=== PATIENT | female | born 1980 | race Caucasian/White ===

== ENCOUNTER 2018-09-15 21:13 | Emergency (ER) | payer OTHER ==
[~2018-09-15] VITALS: Ht 167.6 cm; Wt 93.2 kg
[~2018-09-15 21:13] MED LIST: CHOL100062 PO; DIVA500T52 PO; DOCU250C91 PO; LURA20TA PO; TRAZ-186 PO
[2018-09-15] MEDS ORDERED: PALI234D IM (21:30)
[2018-09-15] MEDS ORDERED: OMEP20 PO (21:30)
[2018-09-15] MEDS ORDERED: DIVA-78 PO (21:30)
[2018-09-15] MEDS ORDERED: LEVO50 PO (21:30)
[2018-09-15] MEDS ORDERED: DOCU250C91 PO (21:30)
[2018-09-15] MEDS ORDERED: CYCL10 PO (21:30)
[2018-09-15] MEDS ORDERED: OXYB5 PO (21:30)
[2018-09-15] MEDS ORDERED: CLOZ100 PO (21:30)
[2018-09-15] MEDS ORDERED: TRAZ-220 PO (21:30)
[2018-09-15] MEDS ORDERED: SERT100T12 PO (21:30)
[2018-09-15 21:32] VITALS: BP 122/93
[2018-09-15 21:41] LABS: BASOPHILS % (AUTO) 1.2 % (0.0-2.0); EOSINOPHILS % (AUTO) 3.4 % (1.0-6.0); HEMOGLOBIN 12.2 g/dL (12.0-16.0); LYMPHOCYTES # (AUTO) 3.2 K/uL (1.0-4.8); LYMPHOCYTES % (AUTO) 35.4 % (22.0-44.0); MEAN CORPUSCULAR HEMOGLOBIN 30.4 pg (26.0-34.0); MEAN CORPUSCULAR HGB CONC 33.8 G/dL (31.0-37.0); MEAN CORPUSCULAR VOLUME 90 fL (80-100); MONOCYTES % (AUTO) 11.3 % (2.0-9.0); NEUTROPHILS # (AUTO) 4.4 K/uL (1.8-7.7); NEUTROPHILS % (AUTO) 48.7 % (40.0-70.0); PLATELET COUNT (AUTO) 163 K/uL (150-450); RED BLOOD CELL COUNT(AUTO) 4.01 MIL/uL (4.00-5.20); RED CELL DISTRIBUTION WIDTH 14.6 % (11.5-14.5)
[2018-09-15 21:51] LABS: ANION GAP 7 mmol/L (8-16); CALCIUM, TOTAL 8.5 mg/dL (8.8-10.5); CARBON DIOXIDE 26 mmol/L (22-29); CHLORIDE 106 mmol/L (98-107); CREATININE 1.07 mg/dL (0.60-1.30); GLOMERULAR FILTR. RATE CALC 58 mL/min (>60); GLUCOSE,RANDOM 135 mg/dL (70-110); POTASSIUM 3.9 mmol/L (3.5-5.1); SODIUM SERUM 139 mmol/L (136-145); UREA NITROGEN, BLOOD 17 mg/dL (7-18)
[2018-09-15] MEDS ORDERED: HALOPERIDOL LACTATE 5 MG/ML VIAL IM ONE (22:00)
[2018-09-15] MEDS ORDERED: LORazepam 2 MG/ML VIAL IM ONE (22:00)
[2018-09-15 22:03] LABS: ALANINE AMINOTRANSFERASE 15 U/L (12-78); ALKALINE PHOSPHATASE 49 U/L (46-116); ASPARTATE AMINOTRANSFERASE 10 U/L (15-37); BILIRUBIN,TOTAL 0.2 mg/dL (0.1-1.0); TOTAL PROTEIN, SERUM 6.6 g/dL (6.4-8.2)
[2018-09-15 22:24] LABS: AMPHET/METH SCREEN,URINE NEGATIVE (NEGATIVE); BARBITURATE SCREEN, URINE NEGATIVE (NEGATIVE); BENZODIAZEPINES SCREEN,URINE NEGATIVE (NEGATIVE); CANNABINOID SCREEN,URINE NEGATIVE (NEGATIVE); COCAINE SCREEN,URINE NEGATIVE (NEGATIVE); METHADONE SCREEN, URINE NEGATIVE (NEGATIVE); OPIATE SCREEN,URINE NEGATIVE (NEGATIVE); PHENCYCLIDINE SCREEN,URINE NEGATIVE (NEGATIVE)
[2018-09-15 22:31] LABS: APPEARANCE,URINE CLEAR (CLEAR); BILIRUBIN,URINE NEGATIVE (NEGATIVE); GLUCOSE, URINE (UA) NEGATIVE (NEGATIVE); KETONES,URINE NEGATIVE (NEGATIVE); LEUKOCYTE ESTERASE ,URINE SMALL (NEGATIVE); NITRATE,URINE NEGATIVE (NEGATIVE); OCCULT BLOOD,URINE NEGATIVE (NEGATIVE); PROTEIN,URINE NEGATIVE (NEGATIVE)
[2018-09-15 22:33] LABS: HCG,QUANTITATIVE < 1 mIU/mL (0-6); LIPASE 301 U/L (73-393)
[2018-09-15 22:48] LABS: BACTERIA,URINE None Seen /HPF (None Seen); RBC,URINE 0-2 /HPF (0-2); SQUAMOUS EPITHELIAL CELL,UR Few /LPF (None Seen)
== END 2018-09-15 23:59 | disposition home or self-care (01) ==
LOC: EMS 21:15
DX: R19.7 Diarrhea, unspecified (principal); F41.9 Anxiety disorder, unspecified; R44.0 Auditory hallucinations; R44.1 Visual hallucinations; I10 Essential (primary) hypertension; R10.12 Left upper quadrant pain; R10.32 Left lower quadrant pain; Z79.899 Other long term (current) drug therapy
CPT/HCPCS: 36415; 80053; 80307; 81001; 83690; 84702; 85025; 96372; 99284; G0480; J1630; J2060

== ENCOUNTER 2018-09-24 18:02 | Emergency (ER) | payer OTHER ==
[~2018-09-24] VITALS: Ht 167.6 cm; Wt 97.7 kg
[~2018-09-24 18:02] MED LIST changes: -CHOL100062 PO; +CLOZ100 PO; +CYCL10 PO; +DIVA-78 PO; -DIVA500T52 PO; +LEVO50 PO; -LURA20TA PO; +OMEP20 PO; +OXYB5 PO; +PALI234D IM; +SERT100T12 PO; -TRAZ-186 PO; +TRAZ-220 PO
[2018-09-24] MEDS ORDERED: MAGNESIUM CITRATE 300 ML ORAL SOLUTION PO ONE (19:45)
[2018-09-24 20:42] VITALS: BP 140/100
== END 2018-09-24 20:56 | disposition home or self-care (01) ==
LOC: EMS 18:03
DX: K59.00 Constipation, unspecified (principal); F41.9 Anxiety disorder, unspecified; F32.9 Major depressive disorder, single episode, unspecified; K21.9 Gastro-esophageal reflux disease without esophagitis; I10 Essential (primary) hypertension; F20.9 Schizophrenia, unspecified

== ENCOUNTER 2018-11-07 17:45 | Inpatient (IN) | payer MEDICAID, OTHER ==
[~2018-11-07] VITALS: Ht 165.1 cm; Wt 94.3 kg
[2018-11-07] MEDS ORDERED: HALOPERIDOL 5 MG TABLET PO ONE (19:30)
[2018-11-07] MEDS ORDERED: DiphenhydrAMINE HCL 25 MG CAPSULE PO ONE (19:30)
[2018-11-07] MEDS ORDERED: LORazepam 2 MG TABLET PO ONE (19:30)
[2018-11-07] MEDS ORDERED: ZOLPIDEM TARTRATE 10 MG TABLET PO PRN (20:00)
[2018-11-07 20:02] LABS: APPEARANCE,URINE CLEAR (CLEAR); BILIRUBIN,URINE NEGATIVE (NEGATIVE); GLUCOSE, URINE (UA) NEGATIVE (NEGATIVE); KETONES,URINE NEGATIVE (NEGATIVE); LEUKOCYTE ESTERASE ,URINE NEGATIVE (NEGATIVE); NITRATE,URINE NEGATIVE (NEGATIVE); OCCULT BLOOD,URINE NEGATIVE (NEGATIVE); PROTEIN,URINE NEGATIVE (NEGATIVE); UROBILINOGEN,URINE 0.2 mg/dL (<=1.0)
[2018-11-07 20:07] LABS: AMPHET/METH SCREEN,URINE NEGATIVE (NEGATIVE); BARBITURATE SCREEN, URINE NEGATIVE (NEGATIVE); BENZODIAZEPINES SCREEN,URINE NEGATIVE (NEGATIVE); CANNABINOID SCREEN,URINE NEGATIVE (NEGATIVE); COCAINE SCREEN,URINE NEGATIVE (NEGATIVE); METHADONE SCREEN, URINE NEGATIVE (NEGATIVE); OPIATE SCREEN,URINE NEGATIVE (NEGATIVE)
[2018-11-07 20:09] LABS: EOSINOPHILS % (AUTO) 2.7 % (1.0-6.0); HEMATOCRIT 36.4 % (36-46); HEMOGLOBIN 12.7 g/dL (12.0-16.0); LYMPHOCYTES # (AUTO) 3.8 K/uL (1.0-4.8); LYMPHOCYTES % (AUTO) 49.1 % (22.0-44.0); MEAN CORPUSCULAR HEMOGLOBIN 31.2 pg (26.0-34.0); MEAN CORPUSCULAR HGB CONC 34.8 G/dL (31.0-37.0); MEAN CORPUSCULAR VOLUME 90 fL (80-100); MONOCYTES # (AUTO) 0.8 K/uL (0.1-1.0); MONOCYTES % (AUTO) 10.6 % (2.0-9.0); NEUTROPHILS # (AUTO) 2.9 K/uL (1.8-7.7); NEUTROPHILS % (AUTO) 36.6 % (40.0-70.0); PLATELET COUNT (AUTO) 205 K/uL (150-450); RED BLOOD CELL COUNT(AUTO) 4.05 MIL/uL (4.00-5.20); RED CELL DISTRIBUTION WIDTH 15.2 % (11.5-14.5)
[2018-11-07 20:15] LABS: PHENCYCLIDINE SCREEN,URINE NEGATIVE (NEGATIVE)
[2018-11-07 20:23] LABS: ANION GAP 6 mmol/L (8-16); CALCIUM, TOTAL 9.3 mg/dL (8.8-10.5); CARBON DIOXIDE 27 mmol/L (22-29); CHLORIDE 106 mmol/L (98-107); GLOMERULAR FILTR. RATE CALC > 60 mL/min (>60); GLUCOSE,RANDOM 95 mg/dL (70-110); POTASSIUM 4.4 mmol/L (3.5-5.1); SODIUM SERUM 139 mmol/L (136-145); UREA NITROGEN, BLOOD 14 mg/dL (7-18)
[2018-11-07 20:39] LABS: ALANINE AMINOTRANSFERASE 15 U/L (12-78); ALBUMIN 3.2 g/dL (3.4-5.0); ALKALINE PHOSPHATASE 35 U/L (46-116); ASPARTATE AMINOTRANSFERASE 5 U/L (15-37); BILIRUBIN,TOTAL 0.2 mg/dL (0.1-1.0); CHOL/HDL RATIO 2.4 (3.9-5.7); CHOLESTEROL 129 mg/dL (131-200); FREE T4 (FREE THYROXINE) 0.83 ng/dL (0.76-1.46); HDL CHOLESTEROL 54 mg/dL (40-60); LDL CHOL (CALC.) 55 mg/dL (0-130); THYROID STIMULATING HORMONE 2.19 uIU/mL (0.36-3.74); TOTAL PROTEIN, SERUM 6.7 g/dL (6.4-8.2); TRIGLYCERIDES 99 mg/dL (15-150)
[2018-11-08 08:20] VITALS: BP 118/68
[2018-11-08] MEDS: LORazepam 1 MG TABLET PO PRN ×2 (08:46→14:56)
[2018-11-08] MEDS: HALOPERIDOL 5 MG TABLET PO PRN ×2 (10:11→14:56)
[2018-11-08] MEDS ORDERED: ONDANSETRON HCL 4 MG TABLET PO PRN (14:15)
[2018-11-08] MEDS ORDERED: ALBUTEROL SULFATE HFA 90 MCG/PUFF 8 GM INHALER IH PRN (14:15)
[2018-11-08] MEDS ORDERED: PETROLATUM,WHITE 71 GM JELLY TP PRN (14:15)
[2018-11-08] MEDS ORDERED: BENZOCAINE/MENTHOL LOZENGE MM PRN (14:15)
[2018-11-08] MEDS ORDERED: CloNIDine HCL 0.1 MG TABLET PO PRN (14:15)
[2018-11-08] MEDS ORDERED: ACETAMINOPHEN 325 MG TABLET PO PRN (14:15)
[2018-11-08] MEDS ORDERED: LOPERAMIDE HCL 2 MG CAPSULE PO PRN (14:15)
[2018-11-08] MEDS ORDERED: MAG HYDROX/AL HYDROX/SIMETH ES 30 ML SUSPENSION UDCUP PO PRN (14:15)
[2018-11-08] MEDS ORDERED: BACITRACIN 28.4 GM OINTMENT TP PRN (14:15)
[2018-11-08] MEDS ORDERED: GuaiFENesin/D-METHORPHAN [SUGAR-FREE] 200-20MG/10 ML SYRUP UDCUP PO PRN (15:00)
[2018-11-08] MEDS ORDERED: HydrOXYzine PAMOATE 50 MG CAPSULE PO PRN (15:00)
[2018-11-08 16:13] VITALS: BP 113/70
[2018-11-08 17:10] VITALS: BP 122/79
[2018-11-08] MEDS ORDERED: PERMETHRIN 1% 60 ML LOTION TP ONE (17:45)
[2018-11-08] MEDS: CloZAPine 100 MG TABLET PO SCH (20:32)
[2018-11-08] MEDS: DIVALPROEX SODIUM 500 MG ER TABLET PO SCH (20:32)
[2018-11-08] MEDS: THIAMINE HCL 100 MG TABLET PO SCH (20:33)
[2018-11-09 05:17] VITALS: BP 118/71
[2018-11-09] MEDS: DOCUSATE SODIUM 100 MG CAPSULE PO SCH (09:26)
[2018-11-09] MEDS: FOLIC ACID 1 MG TABLET PO SCH (09:26)
[2018-11-09] MEDS: THIAMINE HCL 100 MG TABLET PO SCH ×2 (09:26→17:17)
[2018-11-09] MEDS: OMEPRAZOLE 20 MG CAPSULE PO SCH (09:26)
[2018-11-09] MEDS: MULTIVITAMINS WITH MINERALS, THERAPEUTIC TABLET PO SCH (09:27)
[2018-11-09] MEDS ORDERED: IVERMECTIN 3 MG TABLET PO ONE (11:15)
[2018-11-09] MEDS ORDERED: PERMETHRIN 1% 60 ML LOTION TP ONE (11:15)
[2018-11-09] MEDS: MAGNESIUM HYDROXIDE SUSPENSION 30 ML UDCUP PO PRN (13:32)
[2018-11-09 17:07] VITALS: BP 121/85
[2018-11-09] MEDS: LORazepam 1 MG TABLET PO PRN (17:17)
[2018-11-09] MEDS: DIVALPROEX SODIUM 500 MG ER TABLET PO SCH (20:07)
[2018-11-09] MEDS: CloZAPine 100 MG TABLET PO SCH (20:07)
[2018-11-09] MEDS ORDERED: DIVALPROEX SODIUM 500 MG DR TABLET PO SCH (21:00)
[2018-11-09] MEDS: GABAPENTIN 300 MG CAPSULE PO SCH (21:27)
[2018-11-10 05:57] VITALS: BP 118/88
[2018-11-10] MEDS: LEVOTHYROXINE SODIUM 50 MCG TABLET PO SCH (06:08)
[2018-11-10 08:31] VITALS: BP 118/78
[2018-11-10] MEDS: FOLIC ACID 1 MG TABLET PO SCH (09:24)
[2018-11-10] MEDS: THIAMINE HCL 100 MG TABLET PO SCH ×2 (09:24→16:52)
[2018-11-10] MEDS: OXYBUTYNIN CHLORIDE 5 MG TABLET PO SCH ×2 (09:25→16:52)
[2018-11-10] MEDS: DOCUSATE SODIUM 100 MG CAPSULE PO SCH (09:30)
[2018-11-10] MEDS: OMEPRAZOLE 20 MG CAPSULE PO SCH (09:30)
[2018-11-10] MEDS: MULTIVITAMINS WITH MINERALS, THERAPEUTIC TABLET PO SCH (09:31)
[2018-11-10] MEDS: GABAPENTIN 300 MG CAPSULE PO SCH ×2 (09:31→12:35)
[2018-11-10 16:16] VITALS: BP 120/70
[2018-11-10] MEDS: GABAPENTIN 400 MG CAPSULE PO SCH ×2 (16:52→20:51)
[2018-11-10] MEDS: LORazepam 1 MG TABLET PO PRN (20:02)
[2018-11-10] MEDS: DIVALPROEX SODIUM 250 MG ER TABLET PO SCH (20:17)
[2018-11-10] MEDS ORDERED: CloZAPine 100 MG TABLET PO SCH (21:00)
[2018-11-11 02:09] VITALS: BP 121/77
[2018-11-11] MEDS: LEVOTHYROXINE SODIUM 50 MCG TABLET PO SCH (06:30)
[2018-11-11] MEDS: OXYBUTYNIN CHLORIDE 5 MG TABLET PO SCH ×2 (08:15→16:06)
[2018-11-11] MEDS: THIAMINE HCL 100 MG TABLET PO SCH ×2 (08:16→16:06)
[2018-11-11] MEDS: MULTIVITAMINS WITH MINERALS, THERAPEUTIC TABLET PO SCH (08:16)
[2018-11-11] MEDS: DOCUSATE SODIUM 100 MG CAPSULE PO SCH (08:19)
[2018-11-11] MEDS: OMEPRAZOLE 20 MG CAPSULE PO SCH (08:19)
[2018-11-11] MEDS: GABAPENTIN 400 MG CAPSULE PO SCH ×4 (08:19→20:02)
[2018-11-11] MEDS: FOLIC ACID 1 MG TABLET PO SCH (08:20)
[2018-11-11 09:04] VITALS: BP 115/88
[2018-11-11] MEDS: LORazepam 1 MG TABLET PO PRN (13:35)
[2018-11-11] MEDS: HALOPERIDOL 5 MG TABLET PO PRN (13:35)
[2018-11-11 16:04] VITALS: BP 121/78
[2018-11-11 16:05] VITALS: BP 119/87
[2018-11-11 16:24] VITALS: BP 124/86
[2018-11-11] MEDS: IBUPROFEN 600 MG TABLET PO PRN (16:24)
[2018-11-11] MEDS ORDERED: PERMETHRIN 1% 60 ML LOTION TP ONE (18:15)
[2018-11-11] MEDS ORDERED: IVERMECTIN 3 MG TABLET PO ONE (18:15)
[2018-11-11] MEDS: CloZAPine 100 MG TABLET PO SCH (20:01)
[2018-11-11] MEDS: DIVALPROEX SODIUM 250 MG ER TABLET PO SCH (20:02)
[2018-11-12 03:40] VITALS: BP 121/82
[2018-11-12] MEDS: LEVOTHYROXINE SODIUM 50 MCG TABLET PO SCH (06:33)
[2018-11-12 08:15] VITALS: BP 105/60
[2018-11-12] MEDS: OMEPRAZOLE 20 MG CAPSULE PO SCH (08:47)
[2018-11-12] MEDS: THIAMINE HCL 100 MG TABLET PO SCH ×2 (08:47→16:20)
[2018-11-12] MEDS: DOCUSATE SODIUM 100 MG CAPSULE PO SCH (08:47)
[2018-11-12] MEDS: OXYBUTYNIN CHLORIDE 5 MG TABLET PO SCH ×2 (08:47→16:20)
[2018-11-12] MEDS: MULTIVITAMINS WITH MINERALS, THERAPEUTIC TABLET PO SCH (08:47)
[2018-11-12] MEDS: GABAPENTIN 400 MG CAPSULE PO SCH ×4 (08:47→20:24)
[2018-11-12] MEDS: FOLIC ACID 1 MG TABLET PO SCH (08:48)
[2018-11-12] MEDS ORDERED: PERMETHRIN 1% 60 ML LOTION TP ONE (09:45)
[2018-11-12 16:34] VITALS: BP 111/60
[2018-11-12] MEDS: MAGNESIUM HYDROXIDE SUSPENSION 30 ML UDCUP PO PRN (17:08)
[2018-11-12 18:12] VITALS: BP 112/82
[2018-11-12] MEDS: LORazepam 1 MG TABLET PO PRN (18:12)
[2018-11-12] MEDS: CloZAPine 100 MG TABLET PO SCH (20:24)
[2018-11-12] MEDS: DIVALPROEX SODIUM 250 MG ER TABLET PO SCH (20:24)
[2018-11-13] VITALS (11 sets, daily range): BP systolic 102–142; BP diastolic 63–86
[2018-11-13] MEDS: LEVOTHYROXINE SODIUM 50 MCG TABLET PO SCH (07:00)
[2018-11-13] MEDS: DOCUSATE SODIUM 100 MG CAPSULE PO SCH (08:09)
[2018-11-13] MEDS: FOLIC ACID 1 MG TABLET PO SCH (08:09)
[2018-11-13] MEDS: OXYBUTYNIN CHLORIDE 5 MG TABLET PO SCH ×2 (08:09→16:05)
[2018-11-13] MEDS: THIAMINE HCL 100 MG TABLET PO SCH ×2 (08:09→16:05)
[2018-11-13] MEDS: MULTIVITAMINS WITH MINERALS, THERAPEUTIC TABLET PO SCH (08:09)
[2018-11-13] MEDS: OMEPRAZOLE 20 MG CAPSULE PO SCH (08:09)
[2018-11-13] MEDS: GABAPENTIN 400 MG CAPSULE PO SCH ×4 (08:09→20:04)
[2018-11-13] MEDS: IBUPROFEN 600 MG TABLET PO PRN (11:06)
[2018-11-13] MEDS ORDERED: PHENYLEPHRINE/SHK LV/MIN OIL/PET 57 GM OINTMENT TP PRN (13:30)
[2018-11-13] MEDS: PHENYLEPHRINE/SHK LV/MIN OIL/PET 57 GM OINTMENT TP SCH (16:07)
[2018-11-13] MEDS: DIVALPROEX SODIUM 250 MG ER TABLET PO SCH (20:03)
[2018-11-13] MEDS: CloZAPine 100 MG TABLET PO SCH (20:04)
[2018-11-14 00:10] VITALS: BP 120/81
[2018-11-14 00:36] VITALS: BP 110/68
[2018-11-14] MEDS: LEVOTHYROXINE SODIUM 50 MCG TABLET PO SCH (06:35)
[2018-11-14 08:08] VITALS: BP 120/65
[2018-11-14] MEDS: FOLIC ACID 1 MG TABLET PO SCH (09:22)
[2018-11-14] MEDS: DOCUSATE SODIUM 100 MG CAPSULE PO SCH (09:22)
[2018-11-14] MEDS: OXYBUTYNIN CHLORIDE 5 MG TABLET PO SCH ×2 (09:22→17:00)
[2018-11-14] MEDS: THIAMINE HCL 100 MG TABLET PO SCH ×2 (09:22→17:00)
[2018-11-14] MEDS: GABAPENTIN 400 MG CAPSULE PO SCH ×4 (09:22→20:31)
[2018-11-14] MEDS: OMEPRAZOLE 20 MG CAPSULE PO SCH (09:22)
[2018-11-14] MEDS: MULTIVITAMINS WITH MINERALS, THERAPEUTIC TABLET PO SCH (09:22)
[2018-11-14] MEDS: PHENYLEPHRINE/SHK LV/MIN OIL/PET 57 GM OINTMENT TP SCH ×2 (11:03→17:02)
[2018-11-14] MEDS ORDERED: DIVA250T45 PO (15:31)
[2018-11-14] MEDS ORDERED: CLOZ100 PO (15:31)
[2018-11-14] MEDS ORDERED: GABA-533 PO (15:31)
[2018-11-14 16:31] VITALS: BP 112/75
[2018-11-14] MEDS: DIVALPROEX SODIUM 250 MG ER TABLET PO SCH (20:31)
[2018-11-14] MEDS ORDERED: CloZAPine 100 MG TABLET PO SCH (21:00)
[2018-11-15 01:58] VITALS: BP 110/68
[2018-11-15] MEDS: LEVOTHYROXINE SODIUM 50 MCG TABLET PO SCH (06:56)
[2018-11-15] MEDS ORDERED: GABA-533 PO (07:48)
[2018-11-15] MEDS ORDERED: FOLI1 PO (07:48)
[2018-11-15 08:14] LABS: BASOPHILS % (AUTO) 0.6 % (0.0-2.0); EOSINOPHILS % (AUTO) 2.8 % (1.0-6.0); HEMATOCRIT 39.9 % (36-46); HEMOGLOBIN 13.2 g/dL (12.0-16.0); LYMPHOCYTES % (AUTO) 51.3 % (22.0-44.0); MEAN CORPUSCULAR HEMOGLOBIN 30.1 pg (26.0-34.0); MEAN CORPUSCULAR HGB CONC 33.2 G/dL (31.0-37.0); MEAN CORPUSCULAR VOLUME 91 fL (80-100); MONOCYTES # (AUTO) 1.4 K/uL (0.1-1.0); MONOCYTES % (AUTO) 11.9 % (2.0-9.0); NEUTROPHILS # (AUTO) 3.9 K/uL (1.8-7.7); NEUTROPHILS % (AUTO) 33.4 % (40.0-70.0); PLATELET COUNT (AUTO) 225 K/uL (150-450); RED BLOOD CELL COUNT(AUTO) 4.39 MIL/uL (4.00-5.20); RED CELL DISTRIBUTION WIDTH 14.9 % (11.5-14.5)
[2018-11-15] MEDS: MULTIVITAMINS WITH MINERALS, THERAPEUTIC TABLET PO SCH (09:22)
[2018-11-15] MEDS: THIAMINE HCL 100 MG TABLET PO SCH (09:22)
[2018-11-15] MEDS: OXYBUTYNIN CHLORIDE 5 MG TABLET PO SCH (09:22)
[2018-11-15] MEDS: GABAPENTIN 400 MG CAPSULE PO SCH ×2 (09:22→12:03)
[2018-11-15] MEDS: OMEPRAZOLE 20 MG CAPSULE PO SCH (09:22)
[2018-11-15] MEDS: FOLIC ACID 1 MG TABLET PO SCH (09:22)
[2018-11-15] MEDS: DOCUSATE SODIUM 100 MG CAPSULE PO SCH (09:22)
[2018-11-15] MEDS: PHENYLEPHRINE/SHK LV/MIN OIL/PET 57 GM OINTMENT TP SCH (09:41)
== END 2018-11-15 13:15 | disposition home or self-care (01) | DRG 750 ==
LOC: EMS 17:46 → AHU 11-08 07:17 → B3A 11-08 17:01 → B2S 11-10 20:54
PROVIDERS: ADMIT Psychiatry & Neurology Psychiatry; ATTEND Psychiatry & Neurology Psychiatry
DX: F25.0 Schizoaffective disorder, bipolar type (principal); G40.909 Epilepsy, unspecified, not intractable, without status epilepticus; E03.9 Hypothyroidism, unspecified; F41.0 Panic disorder [episodic paroxysmal anxiety]; F41.1 Generalized anxiety disorder; I10 Essential (primary) hypertension; G47.00 Insomnia, unspecified; K21.9 Gastro-esophageal reflux disease without esophagitis; K59.00 Constipation, unspecified; K64.9 Unspecified hemorrhoids
CPT/HCPCS: 80159; 83036; 84439; 84443; G0480

== ENCOUNTER 2020-09-10 12:42 | Inpatient (IN) | payer MEDICAID, OTHER ==
[~2020-09-10] VITALS: Ht 167.6 cm; Wt 91.4 kg
[~2020-09-10 12:42] MED LIST changes: -CLOZ100 PO; +CLOZ100T32 PO; -CYCL10 PO; +DIVA-112 PO; -DIVA-78 PO; +DIVA-85 PO; -DOCU250C91 PO; +FOLI-130 PO; +GABA-1201 PO; +GABA-533 PO; -OMEP20 PO; -PALI234D IM; -SERT100T12 PO; -TRAZ-220 PO
[2020-09-10 13:47] LABS: BASOPHILS % (AUTO) 0.3 % (0.0-2.0); HEMATOCRIT 32.4 % (36-46); HEMOGLOBIN 10.6 g/dL (12.0-16.0); LYMPHOCYTES % (AUTO) 38.5 % (22.0-44.0); MEAN CORPUSCULAR HEMOGLOBIN 29.1 pg (26.0-34.0); MEAN CORPUSCULAR HGB CONC 32.8 G/dL (31.0-37.0); MEAN CORPUSCULAR VOLUME 89 fL (80-100); MONOCYTES # (AUTO) 0.6 K/uL (0.1-1.0); MONOCYTES % (AUTO) 8.2 % (2.0-9.0); PLATELET COUNT (AUTO) 164 K/uL (150-450); RED BLOOD CELL COUNT(AUTO) 3.64 MIL/uL (4.00-5.20); RED CELL DISTRIBUTION WIDTH 14.3 % (11.5-14.5)
[2020-09-10 14:00] LABS: ANION GAP 5 mmol/L (8-16); CARBON DIOXIDE 29 mmol/L (22-29); CHLORIDE 107 mmol/L (98-107); GLOMERULAR FILTR. RATE CALC 56 mL/min (>60); GLUCOSE,RANDOM 77 mg/dL (70-110); POTASSIUM 4.2 mmol/L (3.5-5.1); SODIUM SERUM 141 mmol/L (136-145); UREA NITROGEN, BLOOD 12 mg/dL (7-18)
[2020-09-10 14:15] LABS: ALANINE AMINOTRANSFERASE 11 U/L (12-78); ALKALINE PHOSPHATASE 41 U/L (46-116); ASPARTATE AMINOTRANSFERASE 7 U/L (15-37); BILIRUBIN,TOTAL 0.3 mg/dL (0.1-1.0); TOTAL PROTEIN, SERUM 6.9 g/dL (6.4-8.2); VALPROIC ACID 107 mcg/mL (50-100)
[2020-09-10 15:25] LABS: ACETAMINOPHEN < 2 mcg/mL (10-30)
[2020-09-10 16:11] LABS: COVID AG,FIA SOURCE NASOPHARYNGEAL
[2020-09-10] MEDS ORDERED: ZOLPIDEM TARTRATE 10 MG TABLET PO PRN (16:15)
[2020-09-10] MEDS ORDERED: GuaiFENesin/D-METHORPHAN [SUGAR-FREE] 200-20MG/10 ML SYRUP UDCUP PO PRN (16:15)
[2020-09-10] MEDS ORDERED: TUBERCULIN, PURIFIED PROTEIN DERIVATIVE 5 TU/0.1 ML SYRINGE ID ONE ×2 (16:15→20:15)
[2020-09-10 16:56] LABS: AMPHET/METH SCREEN,URINE NEGATIVE (NEGATIVE); BARBITURATE SCREEN, URINE NEGATIVE (NEGATIVE); BENZODIAZEPINES SCREEN,URINE NEGATIVE (NEGATIVE); CANNABINOID SCREEN,URINE NEGATIVE (NEGATIVE); COCAINE SCREEN,URINE NEGATIVE (NEGATIVE); METHADONE SCREEN, URINE NEGATIVE (NEGATIVE); OPIATE SCREEN,URINE NEGATIVE (NEGATIVE)
[2020-09-10 17:19] LABS: PHENCYCLIDINE SCREEN,URINE NEGATIVE (NEGATIVE)
[2020-09-10] MEDS ORDERED: MAGNESIUM HYDROXIDE SUSPENSION 30 ML UDCUP PO PRN (20:15)
[2020-09-10] MEDS ORDERED: MAG HYDROX/AL HYDROX/SIMETH ES 30 ML SUSPENSION UDCUP PO PRN (20:15)
[2020-09-10] MEDS ORDERED: PROMETHAZINE HCL 25 MG TABLET PO PRN (20:15)
[2020-09-10 20:35] VITALS: BP 97/67
[2020-09-10] MEDS ORDERED: DIVALPROEX SODIUM 500 MG ER TABLET PO SCH ×2 (21:00)
[2020-09-10] MEDS: GABAPENTIN 400 MG CAPSULE PO SCH (22:45)
[2020-09-10] MEDS: CloZAPine 100 MG TABLET PO SCH (22:45)
[2020-09-10] MEDS: THIAMINE 100 MG TABLET PO SCH (22:45)
[2020-09-11 07:53] LABS: CHOL/HDL RATIO 3.6 (3.9-5.7)
[2020-09-11 08:00] VITALS: BP 101/59
[2020-09-11 08:12] VITALS: BP 101/59
[2020-09-11 08:16] LABS: FREE T4 (FREE THYROXINE) 0.9 ng/dL (0.76-1.46); THYROID STIMULATING HORMONE 2.56 uIU/mL (0.36-3.74)
[2020-09-11] MEDS: THIAMINE 100 MG TABLET PO SCH ×2 (08:20→16:11)
[2020-09-11] MEDS: LOPERAMIDE HCL 2 MG CAPSULE PO PRN (08:20)
[2020-09-11] MEDS: MULTIVITAMINS WITH MINERALS, THERAPEUTIC TABLET PO SCH (08:20)
[2020-09-11] MEDS: GABAPENTIN 400 MG CAPSULE PO SCH ×4 (08:20→20:42)
[2020-09-11] MEDS: OMEGA-3/DHA/EPA/FISH OIL 1,000 MG CAPSULE PO SCH (08:20)
[2020-09-11] MEDS: LORazepam 2 MG TABLET PO PRN (08:20)
[2020-09-11] MEDS: OLANZapine 5 MG RAPDIS TABLET PO PRN (08:20)
[2020-09-11] MEDS: HydrOXYzine PAMOATE 50 MG CAPSULE PO PRN ×2 (08:20→17:15)
[2020-09-11] MEDS ORDERED: FOLIC ACID 1 MG TABLET PO SCH (09:00)
[2020-09-11 09:06] LABS: HEMOGLOBIN A1C 5.1 % (3.8-5.6)
[2020-09-11] MEDS ORDERED: HYDROCORTISONE 2.5% 30 GM CREAM TP PRN (12:00)
[2020-09-11 16:00] VITALS: BP 97/65
[2020-09-11] MEDS: OXYBUTYNIN CHLORIDE 5 MG TABLET PO SCH (16:11)
[2020-09-11] MEDS: CloZAPine 100 MG TABLET PO SCH (20:42)
[2020-09-12] MEDS: LEVOTHYROXINE SODIUM 50 MCG TABLET PO SCH (06:11)
[2020-09-12 08:00] VITALS: BP 104/72
[2020-09-12] MEDS: DOCUSATE SODIUM 100 MG CAPSULE PO SCH (08:30)
[2020-09-12] MEDS: OMEGA-3/DHA/EPA/FISH OIL 1,000 MG CAPSULE PO SCH (08:30)
[2020-09-12] MEDS: DIVALPROEX SODIUM 500 MG ER TABLET PO SCH ×3 (08:30→16:19)
[2020-09-12] MEDS: MULTIVITAMINS WITH MINERALS, THERAPEUTIC TABLET PO SCH (08:30)
[2020-09-12] MEDS: THIAMINE 100 MG TABLET PO SCH ×2 (08:30→16:19)
[2020-09-12] MEDS: GABAPENTIN 400 MG CAPSULE PO SCH ×4 (08:30→20:45)
[2020-09-12] MEDS: FOLIC ACID 1 MG TABLET PO SCH (08:30)
[2020-09-12] MEDS: LOPERAMIDE HCL 2 MG CAPSULE PO PRN (08:40)
[2020-09-12] MEDS: OXYBUTYNIN CHLORIDE 5 MG TABLET PO SCH ×2 (09:19→16:19)
[2020-09-12 16:05] VITALS: BP 112/78
[2020-09-12] MEDS: CloZAPine 100 MG TABLET PO SCH (20:45)
[2020-09-12] MEDS: LORazepam 2 MG TABLET PO PRN (22:05)
[2020-09-12] MEDS: OLANZapine 5 MG RAPDIS TABLET PO PRN (22:06)
[2020-09-13] MEDS: LEVOTHYROXINE SODIUM 50 MCG TABLET PO SCH (07:02)
[2020-09-13 08:00] VITALS: BP 128/85
[2020-09-13] MEDS: DOCUSATE SODIUM 100 MG CAPSULE PO SCH (09:13)
[2020-09-13] MEDS: MULTIVITAMINS WITH MINERALS, THERAPEUTIC TABLET PO SCH (09:13)
[2020-09-13] MEDS: GABAPENTIN 400 MG CAPSULE PO SCH ×4 (09:13→20:47)
[2020-09-13] MEDS: OMEGA-3/DHA/EPA/FISH OIL 1,000 MG CAPSULE PO SCH (09:13)
[2020-09-13] MEDS: DIVALPROEX SODIUM 500 MG ER TABLET PO SCH ×3 (09:14→16:52)
[2020-09-13] MEDS: OXYBUTYNIN CHLORIDE 5 MG TABLET PO SCH ×2 (09:14→16:53)
[2020-09-13] MEDS: FOLIC ACID 1 MG TABLET PO SCH (09:14)
[2020-09-13] MEDS: THIAMINE 100 MG TABLET PO SCH ×2 (09:14→16:53)
[2020-09-13 16:05] VITALS: BP 132/75
[2020-09-13 18:38] VITALS: BP 122/72
[2020-09-13] MEDS: ACETAMINOPHEN 325 MG TABLET PO PRN (18:42)
[2020-09-13] MEDS: CloZAPine 100 MG TABLET PO SCH (20:47)
[2020-09-14] MEDS: LEVOTHYROXINE SODIUM 50 MCG TABLET PO SCH (06:41)
[2020-09-14 08:00] VITALS: BP 114/76
[2020-09-14] MEDS: DOCUSATE SODIUM 100 MG CAPSULE PO SCH (09:00)
[2020-09-14] MEDS: FOLIC ACID 1 MG TABLET PO SCH (10:55)
[2020-09-14] MEDS: OXYBUTYNIN CHLORIDE 5 MG TABLET PO SCH ×2 (10:55→15:56)
[2020-09-14] MEDS: DIVALPROEX SODIUM 500 MG ER TABLET PO SCH ×3 (10:55→15:56)
[2020-09-14] MEDS: THIAMINE 100 MG TABLET PO SCH ×2 (10:55→15:56)
[2020-09-14] MEDS: GABAPENTIN 400 MG CAPSULE PO SCH ×4 (10:55→20:21)
[2020-09-14] MEDS: OMEGA-3/DHA/EPA/FISH OIL 1,000 MG CAPSULE PO SCH (10:55)
[2020-09-14] MEDS: MULTIVITAMINS WITH MINERALS, THERAPEUTIC TABLET PO SCH (10:55)
[2020-09-14] MEDS: LOPERAMIDE HCL 2 MG CAPSULE PO PRN (10:56)
[2020-09-14] MEDS: ACETAMINOPHEN 325 MG TABLET PO PRN (13:04)
[2020-09-14 16:00] VITALS: BP 134/93
[2020-09-14] MEDS: CloZAPine 100 MG TABLET PO SCH (20:22)
[2020-09-15] MEDS: LEVOTHYROXINE SODIUM 50 MCG TABLET PO SCH (06:17)
[2020-09-15] MEDS: MULTIVITAMINS WITH MINERALS, THERAPEUTIC TABLET PO SCH (08:11)
[2020-09-15] MEDS: DOCUSATE SODIUM 100 MG CAPSULE PO SCH (08:11)
[2020-09-15] MEDS: OMEGA-3/DHA/EPA/FISH OIL 1,000 MG CAPSULE PO SCH (08:11)
[2020-09-15] MEDS: THIAMINE 100 MG TABLET PO SCH ×2 (08:12→16:16)
[2020-09-15] MEDS: GABAPENTIN 400 MG CAPSULE PO SCH ×4 (08:12→20:46)
[2020-09-15] MEDS: FOLIC ACID 1 MG TABLET PO SCH (08:12)
[2020-09-15] MEDS: DIVALPROEX SODIUM 500 MG ER TABLET PO SCH ×3 (08:12→16:16)
[2020-09-15] MEDS: OXYBUTYNIN CHLORIDE 5 MG TABLET PO SCH ×2 (08:12→16:16)
[2020-09-15 09:39] VITALS: BP 122/86
[2020-09-15 12:03] LABS: COVID AG,FIA SOURCE NASOPHARYNGEAL
[2020-09-15 16:12] VITALS: BP 103/85
[2020-09-15] MEDS: CloZAPine 100 MG TABLET PO SCH (20:46)
[2020-09-15] MEDS: LORazepam 2 MG TABLET PO PRN (22:03)
[2020-09-16] MEDS: LEVOTHYROXINE SODIUM 50 MCG TABLET PO SCH (06:15)
[2020-09-16 08:00] VITALS: BP 113/77
[2020-09-16] MEDS: GABAPENTIN 400 MG CAPSULE PO SCH ×4 (08:47→20:24)
[2020-09-16] MEDS: OXYBUTYNIN CHLORIDE 5 MG TABLET PO SCH ×2 (08:48→16:16)
[2020-09-16] MEDS: FOLIC ACID 1 MG TABLET PO SCH (08:48)
[2020-09-16] MEDS: MULTIVITAMINS WITH MINERALS, THERAPEUTIC TABLET PO SCH (08:48)
[2020-09-16] MEDS: DIVALPROEX SODIUM 500 MG ER TABLET PO SCH ×3 (08:48→16:16)
[2020-09-16] MEDS: OMEGA-3/DHA/EPA/FISH OIL 1,000 MG CAPSULE PO SCH (08:49)
[2020-09-16] MEDS: THIAMINE 100 MG TABLET PO SCH ×2 (08:49→16:16)
[2020-09-16] MEDS: LOPERAMIDE HCL 2 MG CAPSULE PO PRN ×2 (08:59→12:37)
[2020-09-16] MEDS: DOCUSATE SODIUM 100 MG CAPSULE PO SCH (09:00)
[2020-09-16 11:06] LABS: COVID AG,FIA SOURCE NASOPHARYNGEAL
[2020-09-16 16:08] VITALS: BP 118/72
[2020-09-16] MEDS ORDERED: GABA-1201 PO (18:40)
[2020-09-16] MEDS ORDERED: OMEG-135 PO (18:40)
[2020-09-16] MEDS ORDERED: CLOZ100T31 PO (18:40)
[2020-09-16] MEDS: CloZAPine 100 MG TABLET PO SCH (20:24)
[2020-09-17] MEDS: LEVOTHYROXINE SODIUM 50 MCG TABLET PO SCH (06:56)
[2020-09-17 08:25] VITALS: BP 113/79
[2020-09-17] MEDS: DIVALPROEX SODIUM 500 MG ER TABLET PO SCH ×2 (08:27→12:27)
[2020-09-17] MEDS: THIAMINE 100 MG TABLET PO SCH (08:27)
[2020-09-17] MEDS: ACETAMINOPHEN 325 MG TABLET PO PRN (08:27)
[2020-09-17] MEDS: FOLIC ACID 1 MG TABLET PO SCH (08:27)
[2020-09-17] MEDS: MULTIVITAMINS WITH MINERALS, THERAPEUTIC TABLET PO SCH (08:27)
[2020-09-17] MEDS: OXYBUTYNIN CHLORIDE 5 MG TABLET PO SCH (08:27)
[2020-09-17] MEDS: OMEGA-3/DHA/EPA/FISH OIL 1,000 MG CAPSULE PO SCH (08:27)
[2020-09-17] MEDS: GABAPENTIN 400 MG CAPSULE PO SCH ×2 (08:27→12:27)
[2020-09-17 08:40] VITALS: BP 113/79
[2020-09-17 08:58] LABS: BASOPHILS % (AUTO) 0.3 % (0.0-2.0); EOSINOPHILS % (AUTO) 2.1 % (1.0-6.0); HEMATOCRIT 35.6 % (36-46); HEMOGLOBIN 11.6 g/dL (12.0-16.0); LYMPHOCYTES # (AUTO) 3.1 K/uL (1.0-4.8); LYMPHOCYTES % (AUTO) 36.1 % (22.0-44.0); MEAN CORPUSCULAR HEMOGLOBIN 28.9 pg (26.0-34.0); MEAN CORPUSCULAR HGB CONC 32.5 G/dL (31.0-37.0); MEAN CORPUSCULAR VOLUME 89 fL (80-100); MONOCYTES # (AUTO) 1.4 K/uL (0.1-1.0); MONOCYTES % (AUTO) 16.3 % (2.0-9.0); NEUTROPHILS # (AUTO) 3.9 K/uL (1.8-7.7); NEUTROPHILS % (AUTO) 45.2 % (40.0-70.0); PLATELET COUNT (AUTO) 210 K/uL (150-450); RED CELL DISTRIBUTION WIDTH 14.6 % (11.5-14.5)
[2020-09-17] MEDS: DOCUSATE SODIUM 100 MG CAPSULE PO SCH (09:00)
[2020-09-17] MEDS ORDERED: DOCU-275 PO (11:40)
== END 2020-09-17 13:45 | disposition home or self-care (01) | DRG 750 ==
LOC: EMS 12:42 → 3EI 16:10 → 3EX 09-15 21:33
PROVIDERS: ADMIT Psychiatry & Neurology Psychiatry; ATTEND Psychiatry & Neurology Psychiatry
DX: F25.0 Schizoaffective disorder, bipolar type (principal); K21.9 Gastro-esophageal reflux disease without esophagitis; I10 Essential (primary) hypertension; K64.9 Unspecified hemorrhoids; E03.9 Hypothyroidism, unspecified; K59.00 Constipation, unspecified; R32 Unspecified urinary incontinence; D64.9 Anemia, unspecified; R45.851 Suicidal ideations; G40.409 Other generalized epilepsy and epileptic syndromes, not intractable, without status epilepticus; Z20.828 Contact with and (suspected) exposure to other viral communicable diseases; Z79.899 Other long term (current) drug therapy
CPT/HCPCS: 80159; 83036; 84439; 84443; 86592; 87426; G0378; G0480; G0481

== ENCOUNTER 2020-11-19 00:59 | Inpatient (IN) | payer MEDICAID ==
[~2020-11-19] VITALS: Ht 167.6 cm; Wt 93.8 kg
[~2020-11-19 00:59] MED LIST changes: +CLOZ100T31 PO; -CLOZ100T32 PO; -DIVA-112 PO; -DIVA-85 PO; +DOCU-275 PO; -FOLI-130 PO; -GABA-533 PO; +OMEG-135 PO
[2020-11-19] MEDS ORDERED: ZOLPIDEM TARTRATE 10 MG TABLET PO PRN (01:45)
[2020-11-19 02:45] VITALS: BP 132/83
[2020-11-19] MEDS ORDERED: INFLUENZA VIRUS VACCINE QVS 2020-21 (6MO+)/PF 60 MCG/0.5 ML SYRINGE IM ONE (04:00)
[2020-11-19 08:09] VITALS: BP 115/60
[2020-11-19] MEDS: GABAPENTIN 400 MG CAPSULE PO SCH ×4 (08:53→20:29)
[2020-11-19] MEDS: DIVALPROEX SODIUM 250 MG ER TABLET PO SCH ×2 (08:53→14:17)
[2020-11-19] MEDS ORDERED: BENZTROPINE MESYLATE 2 MG TABLET PO SCH (09:00)
[2020-11-19] MEDS: SERTRALINE HCL 100 MG TABLET PO SCH (09:51)
[2020-11-19] MEDS ORDERED: PERMETHRIN 1% 60 ML LOTION TP ONE (10:45)
[2020-11-19] MEDS ORDERED: LOPERAMIDE HCL 2 MG CAPSULE PO ONE (11:45)
[2020-11-19] MEDS ORDERED: LOPERAMIDE HCL 2 MG CAPSULE PO PRN ×2 (11:45→15:30)
[2020-11-19] MEDS ORDERED: MAG HYDROX/AL HYDROX/SIMETH ES 30 ML SUSPENSION UDCUP PO PRN (15:30)
[2020-11-19] MEDS ORDERED: HydrOXYzine PAMOATE 50 MG CAPSULE PO PRN (15:30)
[2020-11-19] MEDS ORDERED: GuaiFENesin/D-METHORPHAN [SUGAR-FREE] 200-20MG/10 ML SYRUP UDCUP PO PRN (15:30)
[2020-11-19] MEDS ORDERED: PROMETHAZINE HCL 25 MG TABLET PO PRN (15:30)
[2020-11-19] MEDS ORDERED: ACETAMINOPHEN 325 MG TABLET PO PRN (15:30)
[2020-11-19] MEDS ORDERED: MAGNESIUM HYDROXIDE SUSPENSION 30 ML UDCUP PO PRN (15:30)
[2020-11-19 16:34] VITALS: BP 110/90
[2020-11-19] MEDS: THIAMINE 100 MG TABLET PO SCH (16:36)
[2020-11-19] MEDS: LORazepam 1 MG TABLET PO PRN (17:39)
[2020-11-19] MEDS: MELATONIN 5 MG TABLET PO SCH (20:28)
[2020-11-19] MEDS: TraZODone HCL 100 MG TABLET PO SCH (20:29)
[2020-11-19] MEDS ORDERED: DIVALPROEX SODIUM 250 MG ER TABLET PO SCH (21:00)
[2020-11-19] MEDS ORDERED: CloZAPine 100 MG TABLET PO ONE (21:00)
[2020-11-20 00:13] VITALS: BP 105/86
[2020-11-20 08:16] VITALS: BP 122/74
[2020-11-20] MEDS: MULTIVITAMINS WITH MINERALS, THERAPEUTIC TABLET PO SCH (08:29)
[2020-11-20] MEDS: GABAPENTIN 400 MG CAPSULE PO SCH ×4 (08:29→21:01)
[2020-11-20] MEDS: NALTREXONE HCL 50 MG TABLET PO SCH (08:30)
[2020-11-20] MEDS: OMEGA-3/DHA/EPA/FISH OIL 1,000 MG CAPSULE PO SCH (08:30)
[2020-11-20] MEDS: THIAMINE 100 MG TABLET PO SCH ×2 (08:30→16:24)
[2020-11-20] MEDS: FOLIC ACID 1 MG TABLET PO SCH (08:30)
[2020-11-20 08:31] LABS: BASOPHILS % (AUTO) 0.5 % (0.0-2.0); EOSINOPHILS % (AUTO) 4.7 % (1.0-6.0); HEMATOCRIT 37.1 % (36-46); HEMOGLOBIN 12.1 g/dL (12.0-16.0); LYMPHOCYTES # (AUTO) 2.8 K/uL (1.0-4.8); LYMPHOCYTES % (AUTO) 43.2 % (22.0-44.0); MEAN CORPUSCULAR HEMOGLOBIN 28.2 pg (26.0-34.0); MEAN CORPUSCULAR HGB CONC 32.5 G/dL (31.0-37.0); MEAN CORPUSCULAR VOLUME 87 fL (80-100); NEUTROPHILS # (AUTO) 2.3 K/uL (1.8-7.7); NEUTROPHILS % (AUTO) 35.6 % (40.0-70.0); PLATELET COUNT (AUTO) 182 K/uL (150-450); RED BLOOD CELL COUNT(AUTO) 4.28 MIL/uL (4.00-5.20); RED CELL DISTRIBUTION WIDTH 15.9 % (11.5-14.5)
[2020-11-20] MEDS: LORazepam 1 MG TABLET PO PRN ×3 (08:31→16:24)
[2020-11-20] MEDS: SERTRALINE HCL 100 MG TABLET PO SCH (08:31)
[2020-11-20 08:43] LABS: ALANINE AMINOTRANSFERASE 11 U/L (12-78); ALBUMIN 2.8 g/dL (3.4-5.0); ALKALINE PHOSPHATASE 39 U/L (46-116); ANION GAP 10 mmol/L (8-16); ASPARTATE AMINOTRANSFERASE < 5 U/L (15-37); BILIRUBIN,TOTAL 0.2 mg/dL (0.1-1.0); CALCIUM, TOTAL 9.5 mg/dL (8.8-10.5); CARBON DIOXIDE 26 mmol/L (22-29); CHLORIDE 110 mmol/L (98-107); CREATININE 0.84 mg/dL (0.60-1.30); FREE T4 (FREE THYROXINE) 0.97 ng/dL (0.76-1.46); GLOMERULAR FILTR. RATE CALC > 60 mL/min (>60); GLUCOSE,RANDOM 96 mg/dL (70-110); POTASSIUM 4.5 mmol/L (3.5-5.1); SODIUM SERUM 146 mmol/L (136-145); TOTAL PROTEIN, SERUM 6.8 g/dL (6.4-8.2); UREA NITROGEN, BLOOD 18 mg/dL (7-18); VALPROIC ACID 105 mcg/mL (50-100)
[2020-11-20 09:18] LABS: APPEARANCE,URINE CLEAR (CLEAR); BILIRUBIN,URINE NEGATIVE (NEGATIVE); GLUCOSE, URINE (UA) NEGATIVE (NEGATIVE); KETONES,URINE NEGATIVE (NEGATIVE); LEUKOCYTE ESTERASE ,URINE NEGATIVE (NEGATIVE); NITRATE,URINE NEGATIVE (NEGATIVE); OCCULT BLOOD,URINE NEGATIVE (NEGATIVE); PH,URINE 6.5 (5.0-8.0); PROTEIN,URINE NEGATIVE (NEGATIVE)
[2020-11-20] MEDS: HALOPERIDOL 5 MG TABLET PO PRN (12:39)
[2020-11-20 16:07] VITALS: BP 124/79
[2020-11-20] MEDS: CloZAPine 100 MG TABLET PO SCH (21:02)
[2020-11-20] MEDS: TraZODone HCL 100 MG TABLET PO SCH (21:02)
[2020-11-20] MEDS: DIVALPROEX SODIUM 500 MG ER TABLET PO SCH (21:02)
[2020-11-20] MEDS: MELATONIN 5 MG TABLET PO SCH (21:27)
[2020-11-21 01:21] VITALS: BP 122/76
[2020-11-21 08:11] VITALS: BP 100/61
[2020-11-21] MEDS: THIAMINE 100 MG TABLET PO SCH ×2 (08:16→16:05)
[2020-11-21] MEDS: OMEGA-3/DHA/EPA/FISH OIL 1,000 MG CAPSULE PO SCH (08:16)
[2020-11-21] MEDS: FOLIC ACID 1 MG TABLET PO SCH (08:16)
[2020-11-21] MEDS: MULTIVITAMINS WITH MINERALS, THERAPEUTIC TABLET PO SCH (08:16)
[2020-11-21] MEDS: NALTREXONE HCL 50 MG TABLET PO SCH (08:16)
[2020-11-21] MEDS: SERTRALINE HCL 100 MG TABLET PO SCH (08:16)
[2020-11-21] MEDS: GABAPENTIN 400 MG CAPSULE PO SCH ×4 (08:16→20:11)
[2020-11-21 09:00] VITALS: BP 110/70
[2020-11-21] MEDS: LORazepam 1 MG TABLET PO PRN ×2 (09:09→13:09)
[2020-11-21] MEDS: HALOPERIDOL 5 MG TABLET PO PRN (12:09)
[2020-11-21 16:29] VITALS: BP 118/86
[2020-11-21] MEDS: TraZODone HCL 100 MG TABLET PO SCH (20:11)
[2020-11-21] MEDS: CloZAPine 100 MG TABLET PO SCH (20:12)
[2020-11-21] MEDS: DIVALPROEX SODIUM 500 MG ER TABLET PO SCH (20:12)
[2020-11-21] MEDS: MELATONIN 5 MG TABLET PO SCH (21:00)
[2020-11-22 00:54] VITALS: BP 116/82
[2020-11-22] MEDS: LORazepam 1 MG TABLET PO PRN ×2 (05:09→12:03)
[2020-11-22] MEDS: GABAPENTIN 400 MG CAPSULE PO SCH ×3 (08:08→17:54)
[2020-11-22] MEDS: MULTIVITAMINS WITH MINERALS, THERAPEUTIC TABLET PO SCH (08:08)
[2020-11-22] MEDS: NALTREXONE HCL 50 MG TABLET PO SCH (08:08)
[2020-11-22] MEDS: THIAMINE 100 MG TABLET PO SCH ×2 (08:08→17:54)
[2020-11-22] MEDS: OMEGA-3/DHA/EPA/FISH OIL 1,000 MG CAPSULE PO SCH (08:08)
[2020-11-22] MEDS: FOLIC ACID 1 MG TABLET PO SCH (08:08)
[2020-11-22 08:26] VITALS: BP 119/76
[2020-11-22] MEDS ORDERED: SERTRALINE HCL 100 MG TABLET PO SCH (09:00)
[2020-11-22] MEDS ORDERED: OMEG-135 PO (13:46)
[2020-11-22] MEDS ORDERED: MELA5TAB3 PO (13:46)
[2020-11-22] MEDS ORDERED: CLOZ100T31 PO (13:46)
[2020-11-22] MEDS ORDERED: NALT50TA PO (13:46)
[2020-11-22] MEDS ORDERED: DIVA-80 PO (13:46)
[2020-11-22] MEDS ORDERED: TRAZ-257 PO (13:46)
[2020-11-22] MEDS ORDERED: GABA-1201 PO (13:46)
[2020-11-22] MEDS ORDERED: SERT-440 PO (13:46)
[2020-11-22] MEDS ORDERED: LOPE2 PO ×2 (15:12)
[2020-11-22] MEDS ORDERED: LOPE-202 PO (15:12)
[2020-11-22 16:18] VITALS: BP 118/77
[2020-11-26] MEDS ORDERED: PERMETHRIN 1% 60 ML LOTION TP ONE (09:00)
== END 2020-11-22 17:00 | disposition home or self-care (01) | DRG 750 ==
LOC: B3A 01:45
PROVIDERS: ADMIT Psychiatry & Neurology Psychiatry; ATTEND Psychiatry & Neurology Psychiatry
DX: F25.9 Schizoaffective disorder, unspecified (principal); E03.9 Hypothyroidism, unspecified; G40.409 Other generalized epilepsy and epileptic syndromes, not intractable, without status epilepticus; I10 Essential (primary) hypertension; Z55.9 Problems related to education and literacy, unspecified; Z59.9 Problem related to housing and economic circumstances, unspecified; Z65.3 Problems related to other legal circumstances; Z91.5 Personal history of self-harm; Z23 Encounter for immunization
CPT/HCPCS: 80159; 84439; 90686; 99285; A9575

== ENCOUNTER 2021-11-15 22:39 | Inpatient (IN) | payer MEDICAID, OTHER ==
[~2021-11-15] VITALS: Ht 167.6 cm; Wt 78.0 kg
[~2021-11-15 22:39] MED LIST changes: +DIVA-80 PO; -DOCU-275 PO; -LEVO50 PO; +LOPE2 PO; +MELA5TAB40 PO; +NALT50TA PO; +OMEG-108 PO; -OMEG-135 PO; -OXYB5 PO; +SERT-440 PO; +TRAZ-257 PO
[2021-11-15 23:10] LABS: BASOPHILS % (AUTO) 0.6 % (0.0-2.0); EOSINOPHILS % (AUTO) 1.8 % (1.0-6.0); HEMATOCRIT 35.5 % (36-46); HEMOGLOBIN 11.9 g/dL (12.0-16.0); LYMPHOCYTES # (AUTO) 4.3 K/uL (1.0-4.8); LYMPHOCYTES % (AUTO) 51.4 % (22.0-44.0); MEAN CORPUSCULAR HEMOGLOBIN 29.9 pg (26.0-34.0); MEAN CORPUSCULAR HGB CONC 33.6 G/dL (31.0-37.0); MEAN CORPUSCULAR VOLUME 89 fL (80-100); MONOCYTES # (AUTO) 0.9 K/uL (0.1-1.0); MONOCYTES % (AUTO) 10.8 % (2.0-9.0); NEUTROPHILS % (AUTO) 35.4 % (40.0-70.0); PLATELET COUNT (AUTO) 312 K/uL (150-450); RED BLOOD CELL COUNT(AUTO) 3.98 MIL/uL (4.00-5.20)
[2021-11-15 23:22] LABS: ANION GAP 8 mmol/L (8-16); CALCIUM, TOTAL 9.6 mg/dL (8.8-10.5); CARBON DIOXIDE 26 mmol/L (22-29); CHLORIDE 104 mmol/L (98-107); CREATININE 0.78 mg/dL (0.60-1.30); GLOMERULAR FILTR. RATE CALC > 60 mL/min (>60); GLUCOSE,RANDOM 140 mg/dL (70-110); POTASSIUM 3.5 mmol/L (3.5-5.1); SODIUM SERUM 138 mmol/L (136-145); UREA NITROGEN, BLOOD 12 mg/dL (7-18)
[2021-11-15 23:36] LABS: ALANINE AMINOTRANSFERASE 25 U/L (12-78); ALBUMIN 3.6 g/dL (3.4-5.0); ALKALINE PHOSPHATASE 73 U/L (46-116); ASPARTATE AMINOTRANSFERASE 11 U/L (15-37); BILIRUBIN,TOTAL 0.3 mg/dL (0.1-1.0); HCG,QUANTITATIVE < 1 mIU/mL (0-6); TOTAL PROTEIN, SERUM 7.4 g/dL (6.4-8.2)
[2021-11-15 23:41] LABS: VALPROIC ACID < 3 mcg/mL (50-100)
[2021-11-15 23:54] LABS: COVID AG,FIA SOURCE NASAL SWAB
[2021-11-15 23:55] LABS: AMPHET/METH SCREEN,URINE NEGATIVE (NEGATIVE); BARBITURATE SCREEN, URINE NEGATIVE (NEGATIVE); BENZODIAZEPINES SCREEN,URINE NEGATIVE (NEGATIVE); CANNABINOID SCREEN,URINE NEGATIVE (NEGATIVE); COCAINE SCREEN,URINE NEGATIVE (NEGATIVE); METHADONE SCREEN, URINE NEGATIVE (NEGATIVE); OPIATE SCREEN,URINE NEGATIVE (NEGATIVE)
[2021-11-16 00:02] LABS: PHENCYCLIDINE SCREEN,URINE NEGATIVE (NEGATIVE)
[2021-11-16] MEDS ORDERED: ZOLPIDEM TARTRATE 10 MG TABLET PO PRN (08:00)
[2021-11-16] MEDS ORDERED: HALOPERIDOL 5 MG TABLET PO PRN (08:00)
[2021-11-16] MEDS: LORazepam 2 MG TABLET PO PRN (10:48)
[2021-11-17 07:02] LABS: CHOL/HDL RATIO 2.2 (3.9-5.7)
[2021-11-17] MEDS: LORazepam 2 MG TABLET PO PRN (09:36)
[2021-11-17 09:37] VITALS: BP 107/78
[2021-11-17] MEDS ORDERED: ONDANSETRON HCL 4 MG TABLET PO PRN (10:00)
[2021-11-17] MEDS ORDERED: INFLUENZA VIRUS VACCINE QVS 2021-22 (6MO+)/PF 60 MCG/0.5 ML SYRINGE IM. ONE (11:00)
[2021-11-17] MEDS ORDERED: MAGNESIUM HYDROXIDE SUSPENSION 30 ML UDCUP PO PRN ×2 (11:15→15:00)
[2021-11-17] MEDS ORDERED: LOPERAMIDE HCL 2 MG CAPSULE PO PRN (15:00)
[2021-11-17] MEDS ORDERED: HydrOXYzine PAMOATE 50 MG CAPSULE PO PRN (15:00)
[2021-11-17] MEDS ORDERED: ACETAMINOPHEN 325 MG TABLET PO PRN (15:00)
[2021-11-17] MEDS ORDERED: OLANZapine 5 MG RAPDIS TABLET PO PRN (15:00)
[2021-11-17] MEDS ORDERED: PROMETHAZINE HCL 25 MG TABLET PO PRN (15:00)
[2021-11-17] MEDS ORDERED: GABAPENTIN 300 MG CAPSULE PO PRN (15:00)
[2021-11-17] MEDS ORDERED: GuaiFENesin/D-METHORPHAN [SUGAR-FREE] 200-20MG/10 ML SYRUP UDCUP PO PRN (15:00)
[2021-11-17] MEDS ORDERED: MAG HYDROX/AL HYDROX/SIMETH ES 30 ML SUSPENSION UDCUP PO PRN (15:00)
[2021-11-17 16:21] VITALS: BP 117/73
[2021-11-17] MEDS: THIAMINE 100 MG TABLET PO SCH (16:31)
[2021-11-17] MEDS: GABAPENTIN 400 MG CAPSULE PO SCH ×2 (16:31→20:37)
[2021-11-17] MEDS: SERTRALINE HCL 100 MG TABLET PO SCH (20:37)
[2021-11-17] MEDS: DIVALPROEX SODIUM 500 MG ER TABLET PO SCH (20:38)
[2021-11-17] MEDS: TraZODone HCL 100 MG TABLET PO SCH (20:38)
[2021-11-17] MEDS ORDERED: CloZAPine 100 MG TABLET PO SCH (21:00)
[2021-11-18 02:09] VITALS: BP 115/69
[2021-11-18 07:46] LABS: BASOPHILS % (AUTO) 0.3 % (0.0-2.0); EOSINOPHILS % (AUTO) 2.1 % (1.0-6.0); HEMATOCRIT 37.4 % (36-46); HEMOGLOBIN 12.7 g/dL (12.0-16.0); LYMPHOCYTES # (AUTO) 6.1 K/uL (1.0-4.8); LYMPHOCYTES % (AUTO) 57.2 % (22.0-44.0); MEAN CORPUSCULAR HEMOGLOBIN 30.3 pg (26.0-34.0); MEAN CORPUSCULAR HGB CONC 33.9 G/dL (31.0-37.0); MEAN CORPUSCULAR VOLUME 89 fL (80-100); MONOCYTES # (AUTO) 0.9 K/uL (0.1-1.0); MONOCYTES % (AUTO) 8.2 % (2.0-9.0); NEUTROPHILS # (AUTO) 3.4 K/uL (1.8-7.7); NEUTROPHILS % (AUTO) 32.2 % (40.0-70.0); PLATELET COUNT (AUTO) 346 K/uL (150-450); RED BLOOD CELL COUNT(AUTO) 4.19 MIL/uL (4.00-5.20); RED CELL DISTRIBUTION WIDTH 13.5 % (11.5-14.5)
[2021-11-18 08:02] LABS: HEMOGLOBIN A1C 5.1 % (3.8-5.6)
[2021-11-18 08:08] LABS: ALANINE AMINOTRANSFERASE 21 U/L (12-78); ALBUMIN 3.6 g/dL (3.4-5.0); ALKALINE PHOSPHATASE 71 U/L (46-116); ANION GAP 10 mmol/L (8-16); ASPARTATE AMINOTRANSFERASE 5 U/L (15-37); BILIRUBIN,TOTAL 0.4 mg/dL (0.1-1.0); CALCIUM, TOTAL 9.5 mg/dL (8.8-10.5); CARBON DIOXIDE 28 mmol/L (22-29); CHLORIDE 103 mmol/L (98-107); CHOL/HDL RATIO 2.3 (3.9-5.7); CHOLESTEROL 203 mg/dL (131-200); CREATININE 0.86 mg/dL (0.60-1.30); FREE T4 (FREE THYROXINE) 1.03 ng/dL (0.76-1.46); GLOMERULAR FILTR. RATE CALC > 60 mL/min (>60); GLUCOSE,RANDOM 82 mg/dL (70-110); HCG,QUANTITATIVE < 1 mIU/mL (0-6); HDL CHOLESTEROL 87 mg/dL (40-60); LDL CHOL (CALC.) 102 mg/dL (0-130); POTASSIUM 3.7 mmol/L (3.5-5.1); SODIUM SERUM 141 mmol/L (136-145); THYROID STIMULATING HORMONE 1.86 uIU/mL (0.36-3.74); TOTAL PROTEIN, SERUM 7.6 g/dL (6.4-8.2); TRIGLYCERIDES 71 mg/dL (15-150); UREA NITROGEN, BLOOD 15 mg/dL (7-18)
[2021-11-18 08:39] VITALS: BP 96/55
[2021-11-18] MEDS: THIAMINE 100 MG TABLET PO SCH ×2 (08:55→16:26)
[2021-11-18] MEDS: FOLIC ACID 1 MG TABLET PO SCH (08:55)
[2021-11-18] MEDS: MULTIVITAMINS WITH MINERALS, THERAPEUTIC TABLET PO SCH (08:55)
[2021-11-18] MEDS: GABAPENTIN 400 MG CAPSULE PO SCH ×4 (08:55→20:39)
[2021-11-18] MEDS ORDERED: CloZAPine 25 MG TABLET PO SCH (09:00)
[2021-11-18 16:29] VITALS: BP 106/76
[2021-11-18] MEDS: TraZODone HCL 100 MG TABLET PO SCH (20:39)
[2021-11-18] MEDS: DIVALPROEX SODIUM 500 MG ER TABLET PO SCH (20:39)
[2021-11-18] MEDS: SERTRALINE HCL 100 MG TABLET PO SCH (20:40)
[2021-11-18] MEDS: CloZAPine 100 MG TABLET PO SCH (21:04)
[2021-11-19 01:03] VITALS: BP 117/67
[2021-11-19 07:48] LABS: APPEARANCE,URINE HAZY (CLEAR); BILIRUBIN,URINE NEGATIVE (NEGATIVE); GLUCOSE, URINE (UA) NEGATIVE (NEGATIVE); KETONES,URINE NEGATIVE (NEGATIVE); LEUKOCYTE ESTERASE ,URINE NEGATIVE Leu/uL (NEGATIVE); NITRATE,URINE NEGATIVE (NEGATIVE); OCCULT BLOOD,URINE NEGATIVE (NEGATIVE); PH,URINE 6.5 (5.0-8.0); PROTEIN,URINE TRACE (NEGATIVE); UROBILINOGEN,URINE <=1.0 mg/dL (<=1.0)
[2021-11-19 07:53] LABS: AMPHET/METH SCREEN,URINE NEGATIVE (NEGATIVE); BARBITURATE SCREEN, URINE NEGATIVE (NEGATIVE); BENZODIAZEPINES SCREEN,URINE NEGATIVE (NEGATIVE); CANNABINOID SCREEN,URINE NEGATIVE (NEGATIVE); COCAINE SCREEN,URINE NEGATIVE (NEGATIVE); METHADONE SCREEN, URINE NEGATIVE (NEGATIVE); OPIATE SCREEN,URINE NEGATIVE (NEGATIVE)
[2021-11-19 07:57] LABS: PHENCYCLIDINE SCREEN,URINE NEGATIVE (NEGATIVE)
[2021-11-19] MEDS: GABAPENTIN 400 MG CAPSULE PO SCH ×4 (08:35→20:36)
[2021-11-19] MEDS: NALTREXONE HCL 50 MG TABLET PO SCH (08:35)
[2021-11-19] MEDS: MULTIVITAMINS WITH MINERALS, THERAPEUTIC TABLET PO SCH (08:35)
[2021-11-19] MEDS: FOLIC ACID 1 MG TABLET PO SCH (08:35)
[2021-11-19] MEDS: THIAMINE 100 MG TABLET PO SCH ×2 (08:35→16:33)
[2021-11-19] MEDS ORDERED: CloZAPine 25 MG TABLET PO SCH ×2 (09:00→21:00)
[2021-11-19] MEDS ORDERED: SERT-440 PO (16:17)
[2021-11-19] MEDS ORDERED: DIVA-80 PO (16:17)
[2021-11-19] MEDS ORDERED: GABA-1201 PO (16:17)
[2021-11-19] MEDS ORDERED: CLOZ100T31 PO (16:17)
[2021-11-19] MEDS ORDERED: NALT50TA PO (16:17)
[2021-11-19] MEDS ORDERED: TRAZ-257 PO (16:17)
[2021-11-19 16:21] VITALS: BP 104/71
[2021-11-19] MEDS ORDERED: MELA5TAB40 PO (16:21)
[2021-11-19] MEDS ORDERED: OMEG-108 PO (16:21)
[2021-11-19] MEDS: TraZODone HCL 100 MG TABLET PO SCH (20:35)
[2021-11-19] MEDS: SERTRALINE HCL 100 MG TABLET PO SCH (20:36)
[2021-11-19] MEDS: CloZAPine 100 MG TABLET PO SCH (20:36)
[2021-11-19] MEDS: DIVALPROEX SODIUM 500 MG ER TABLET PO SCH (20:36)
[2021-11-19] MEDS ORDERED: MELATONIN 5 MG TABLET PO SCH (21:00)
[2021-11-20 01:20] VITALS: BP 110/68
[2021-11-20 08:36] VITALS: BP 96/56
[2021-11-20] MEDS: NALTREXONE HCL 50 MG TABLET PO SCH (08:36)
[2021-11-20] MEDS: MULTIVITAMINS WITH MINERALS, THERAPEUTIC TABLET PO SCH (08:36)
[2021-11-20] MEDS: THIAMINE 100 MG TABLET PO SCH (08:37)
[2021-11-20] MEDS: GABAPENTIN 400 MG CAPSULE PO SCH ×2 (08:37→12:12)
[2021-11-20] MEDS: FOLIC ACID 1 MG TABLET PO SCH (08:37)
[2021-11-20] MEDS ORDERED: OMEGA-3/DHA/EPA/FISH OIL 1,000 MG CAPSULE PO SCH (09:00)
[2021-11-20] MEDS ORDERED: CloZAPine 25 MG TABLET PO SCH ×2 (09:00→21:00)
[2021-11-20] MEDS ORDERED: CLOZ100T31 PO ×2 (11:02→11:04)
[2021-11-20] MEDS ORDERED: SERT-440 PO (11:04)
[2021-11-20] MEDS ORDERED: GABA-1201 PO (11:04)
[2021-11-20] MEDS ORDERED: TRAZ-257 PO (11:04)
[2021-11-20] MEDS ORDERED: NALT50TA PO (11:04)
[2021-11-20] MEDS ORDERED: MELA5TAB40 PO (11:04)
[2021-11-20] MEDS ORDERED: DIVA-80 PO (11:04)
[2021-11-20] MEDS ORDERED: OMEG-108 PO (11:04)
[2021-11-21] MEDS ORDERED: CloZAPine 25 MG TABLET PO SCH (09:00)
[2021-11-23] MEDS ORDERED: CloZAPine 25 MG TABLET PO SCH (09:00)
[2021-11-23] MEDS ORDERED: CloZAPine 100 MG TABLET PO SCH (21:00)
[2021-11-24] MEDS ORDERED: CloZAPine 25 MG TABLET PO SCH (09:00)
[2021-11-24] MEDS ORDERED: CloZAPine 100 MG TABLET PO SCH (21:00)
[2021-11-25] MEDS ORDERED: CloZAPine 25 MG TABLET PO SCH (09:00)
[2021-11-25] MEDS ORDERED: CloZAPine 100 MG TABLET PO SCH (21:00)
[2021-11-26] MEDS ORDERED: CloZAPine 100 MG TABLET PO SCH (09:00)
[2021-11-28] MEDS ORDERED: CloZAPine 25 MG TABLET PO SCH (09:00)
[2021-11-28] MEDS ORDERED: CloZAPine 100 MG TABLET PO SCH (21:00)
[2021-11-29] MEDS ORDERED: CloZAPine 25 MG TABLET PO SCH (09:00)
[2021-11-29] MEDS ORDERED: CloZAPine 100 MG TABLET PO SCH (21:00)
[2021-11-30] MEDS ORDERED: CloZAPine 100 MG TABLET PO SCH ×2 (09:00→21:00)
== END 2021-11-20 13:00 | disposition home or self-care (01) | DRG 750 ==
LOC: EMS 22:45 → B2S 11-17 07:50
PROVIDERS: ADMIT Psychiatry & Neurology Psychiatry; ATTEND Psychiatry & Neurology Psychiatry
DX: F25.9 Schizoaffective disorder, unspecified (principal); R45.851 Suicidal ideations; Z91.14 Patient's other noncompliance with medication regimen; E03.9 Hypothyroidism, unspecified; I10 Essential (primary) hypertension; J44.9 Chronic obstructive pulmonary disease, unspecified; Z20.822 Contact with and (suspected) exposure to COVID-19; K59.00 Constipation, unspecified; Z86.16 Personal history of COVID-19; Z87.440 Personal history of urinary (tract) infections; Z87.891 Personal history of nicotine dependence
CPT/HCPCS: 80053; 80061; 80159; 80164; 80307; 81003; 83036; 84439; 84443; 84702; 85025; 86592; 90686; 99285; G0480; Q0162; Q9967

== ENCOUNTER 2022-01-21 01:04 | Inpatient (IN) | payer MEDICAID, OTHER ==
[~2022-01-21] VITALS: Ht 167.6 cm; Wt 81.2 kg
[~2022-01-21 01:04] MED LIST changes: -LOPE2 PO
[2022-01-21 01:55] LABS: BASOPHILS % (AUTO) 0.9 % (0.0-2.0); EOSINOPHILS % (AUTO) 1.9 % (1.0-6.0); HEMATOCRIT 32.9 % (36-46); LYMPHOCYTES # (AUTO) 4.7 K/uL (1.0-4.8); LYMPHOCYTES % (AUTO) 51.4 % (22.0-44.0); MEAN CORPUSCULAR HEMOGLOBIN 29.9 pg (26.0-34.0); MEAN CORPUSCULAR HGB CONC 33.5 G/dL (31.0-37.0); MEAN CORPUSCULAR VOLUME 89 fL (80-100); MONOCYTES # (AUTO) 1.2 K/uL (0.1-1.0); MONOCYTES % (AUTO) 12.9 % (2.0-9.0); NEUTROPHILS % (AUTO) 32.9 % (40.0-70.0); PLATELET COUNT (AUTO) 174 K/uL (150-450); RED BLOOD CELL COUNT(AUTO) 3.68 MIL/uL (4.00-5.20); RED CELL DISTRIBUTION WIDTH 14.8 % (11.5-14.5)
[2022-01-21 01:56] LABS: COVID AG,FIA SOURCE NASOPHARYNGEAL
[2022-01-21 02:01] LABS: APPEARANCE,URINE CLEAR (CLEAR); BILIRUBIN,URINE NEGATIVE (NEGATIVE); GLUCOSE, URINE (UA) NEGATIVE (NEGATIVE); KETONES,URINE NEGATIVE (NEGATIVE); LEUKOCYTE ESTERASE ,URINE NEGATIVE (NEGATIVE); NITRATE,URINE NEGATIVE (NEGATIVE); OCCULT BLOOD,URINE NEGATIVE (NEGATIVE); PROTEIN,URINE NEGATIVE (NEGATIVE); SPECIFIC GRAVITIY, URINE 1.012 (1.003-1.030); UROBILINOGEN,URINE <=1.0 mg/dL (<=1.0)
[2022-01-21 02:03] LABS: AMPHET/METH SCREEN,URINE NEGATIVE (NEGATIVE); BARBITURATE SCREEN, URINE NEGATIVE (NEGATIVE); BENZODIAZEPINES SCREEN,URINE NEGATIVE (NEGATIVE); CANNABINOID SCREEN,URINE NEGATIVE (NEGATIVE); COCAINE SCREEN,URINE NEGATIVE (NEGATIVE); METHADONE SCREEN, URINE NEGATIVE (NEGATIVE); OPIATE SCREEN,URINE NEGATIVE (NEGATIVE)
[2022-01-21 02:08] LABS: PHENCYCLIDINE SCREEN,URINE NEGATIVE (NEGATIVE)
[2022-01-21 02:12] LABS: CALCIUM, TOTAL 8.8 mg/dL (8.8-10.5); CARBON DIOXIDE 31 mmol/L (22-29); CHLORIDE 104 mmol/L (98-107); CREATININE 0.83 mg/dL (0.60-1.30); GLOMERULAR FILTR. RATE CALC > 60 mL/min (>60); GLUCOSE,RANDOM 91 mg/dL (70-110); UREA NITROGEN, BLOOD 19 mg/dL (7-18)
[2022-01-21] MEDS ORDERED: ZOLPIDEM TARTRATE 10 MG TABLET PO PRN (02:15)
[2022-01-21] MEDS ORDERED: LORazepam 2 MG TABLET PO PRN (02:15)
[2022-01-21 02:23] LABS: ALANINE AMINOTRANSFERASE 13 U/L (12-78); ALBUMIN 3.1 g/dL (3.4-5.0); ALKALINE PHOSPHATASE 44 U/L (46-116); ASPARTATE AMINOTRANSFERASE 5 U/L (15-37); BILIRUBIN,TOTAL 0.2 mg/dL (0.1-1.0); HCG,QUANTITATIVE < 1 mIU/mL (0-6); TOTAL PROTEIN, SERUM 6.6 g/dL (6.4-8.2); VALPROIC ACID 80 mcg/mL (50-100)
[2022-01-21 02:34] LABS: ANION GAP 4 mmol/L (8-16); SODIUM SERUM 139 mmol/L (136-145)
[2022-01-21 04:23] VITALS: BP 105/70
[2022-01-21 04:31] VITALS: BP 105/70
[2022-01-21 06:14] VITALS: BP 129/79
[2022-01-21] MEDS ORDERED: PNEUMOCOCCAL VACCINE POLYVALENT 0.5 ML VIAL [PPSV23] IM. ONE (06:30)
[2022-01-21] MEDS ORDERED: ALBUTEROL SULFATE HFA 90 MCG/PUFF 8 GM INHALER IH PRN (09:45)
[2022-01-21] MEDS ORDERED: DOCUSATE SODIUM 100 MG CAPSULE PO PRN (09:45)
[2022-01-21] MEDS ORDERED: PETROLATUM,WHITE 28 GM JELLY TP PRN (09:45)
[2022-01-21] MEDS ORDERED: NICOTINE 14 MG/24 HOUR PATCH TD PRN (09:45)
[2022-01-21] MEDS ORDERED: MAG HYDROX/AL HYDROX/SIMETH ES 30 ML SUSPENSION UDCUP PO PRN (09:45)
[2022-01-21] MEDS ORDERED: IBUPROFEN 400 MG TABLET PO PRN (09:45)
[2022-01-21] MEDS ORDERED: ACETAMINOPHEN 325 MG TABLET PO PRN (09:45)
[2022-01-21] MEDS ORDERED: MAGNESIUM HYDROXIDE SUSPENSION 30 ML UDCUP PO PRN (09:45)
[2022-01-21] MEDS ORDERED: CloNIDine HCL 0.1 MG TABLET PO PRN (09:45)
[2022-01-21] MEDS ORDERED: GuaiFENesin/D-METHORPHAN [SUGAR-FREE] 200-20MG/10 ML SYRUP UDCUP PO PRN (09:45)
[2022-01-21] MEDS: OMEGA-3/DHA/EPA/FISH OIL 1,000 MG CAPSULE PO SCH (10:07)
[2022-01-21 11:10] VITALS: BP 109/71
[2022-01-21] MEDS ORDERED: OMEGA-3/DHA/EPA/FISH OIL 1,000 MG CAPSULE PO SCH (13:15)
[2022-01-21] MEDS: NALTREXONE HCL 50 MG TABLET PO SCH (14:11)
[2022-01-21] MEDS: SERTRALINE HCL 100 MG TABLET PO SCH (14:11)
[2022-01-21 14:39] LABS: EOSINOPHILS % (AUTO) 2.3 % (1.0-6.0); HEMATOCRIT 35.1 % (36-46); HEMOGLOBIN 11.8 g/dL (12.0-16.0); LYMPHOCYTES # (AUTO) 3.2 K/uL (1.0-4.8); LYMPHOCYTES % (AUTO) 46.1 % (22.0-44.0); MEAN CORPUSCULAR HEMOGLOBIN 29.9 pg (26.0-34.0); MEAN CORPUSCULAR HGB CONC 33.6 G/dL (31.0-37.0); MEAN CORPUSCULAR VOLUME 89 fL (80-100); MONOCYTES # (AUTO) 0.8 K/uL (0.1-1.0); MONOCYTES % (AUTO) 12.3 % (2.0-9.0); NEUTROPHILS # (AUTO) 2.6 K/uL (1.8-7.7); NEUTROPHILS % (AUTO) 38.3 % (40.0-70.0); PLATELET COUNT (AUTO) 182 K/uL (150-450); RED BLOOD CELL COUNT(AUTO) 3.96 MIL/uL (4.00-5.20); RED CELL DISTRIBUTION WIDTH 14.8 % (11.5-14.5)
[2022-01-21] MEDS: GABAPENTIN 400 MG CAPSULE PO SCH ×2 (16:29→20:27)
[2022-01-21] MEDS: TraZODone HCL 100 MG TABLET PO SCH (16:29)
[2022-01-21] MEDS: MELATONIN 5 MG TABLET PO SCH (20:27)
[2022-01-21] MEDS: CloZAPine 100 MG TABLET PO SCH (20:27)
[2022-01-21] MEDS: DIVALPROEX SODIUM 500 MG DR TABLET PO SCH (20:27)
[2022-01-21] MEDS ORDERED: MELATONIN 5 MG TABLET PO SCH ×2 (21:00)
[2022-01-22 08:06] VITALS: BP 91/64
[2022-01-22] MEDS: GABAPENTIN 400 MG CAPSULE PO SCH ×4 (09:05→20:42)
[2022-01-22] MEDS: TraZODone HCL 100 MG TABLET PO SCH ×2 (09:05→16:43)
[2022-01-22] MEDS: SERTRALINE HCL 100 MG TABLET PO SCH (09:05)
[2022-01-22] MEDS: NALTREXONE HCL 50 MG TABLET PO SCH (09:05)
[2022-01-22] MEDS: OMEGA-3/DHA/EPA/FISH OIL 1,000 MG CAPSULE PO SCH (09:06)
[2022-01-22 16:14] VITALS: BP 99/68
[2022-01-22] MEDS: HALOPERIDOL 5 MG TABLET PO PRN (16:43)
[2022-01-22] MEDS: CloZAPine 100 MG TABLET PO SCH (20:42)
[2022-01-22] MEDS: DIVALPROEX SODIUM 500 MG DR TABLET PO SCH (20:42)
[2022-01-22] MEDS: MELATONIN 5 MG TABLET PO SCH (20:42)
[2022-01-23 08:01] VITALS: BP 119/79
[2022-01-23] MEDS: OMEGA-3/DHA/EPA/FISH OIL 1,000 MG CAPSULE PO SCH (09:08)
[2022-01-23] MEDS: SERTRALINE HCL 100 MG TABLET PO SCH (09:08)
[2022-01-23] MEDS: TraZODone HCL 100 MG TABLET PO SCH ×2 (09:08→17:00)
[2022-01-23] MEDS: NALTREXONE HCL 50 MG TABLET PO SCH (09:08)
[2022-01-23] MEDS: GABAPENTIN 400 MG CAPSULE PO SCH ×4 (09:08→21:04)
[2022-01-23 16:02] VITALS: BP 98/52
[2022-01-23] MEDS: HALOPERIDOL 5 MG TABLET PO PRN (17:43)
[2022-01-23] MEDS: DIVALPROEX SODIUM 500 MG DR TABLET PO SCH (21:00)
[2022-01-23] MEDS: CloZAPine 100 MG TABLET PO SCH (21:04)
[2022-01-23] MEDS: MELATONIN 5 MG TABLET PO SCH (21:04)
[2022-01-24] MEDS: OMEGA-3/DHA/EPA/FISH OIL 1,000 MG CAPSULE PO SCH (08:20)
[2022-01-24] MEDS: NALTREXONE HCL 50 MG TABLET PO SCH (08:20)
[2022-01-24] MEDS: SERTRALINE HCL 100 MG TABLET PO SCH (08:20)
[2022-01-24] MEDS: TraZODone HCL 100 MG TABLET PO SCH ×2 (08:21→17:08)
[2022-01-24] MEDS: GABAPENTIN 400 MG CAPSULE PO SCH ×4 (08:22→20:08)
[2022-01-24 08:34] VITALS: BP 90/70
[2022-01-24 16:26] VITALS: BP 113/69
[2022-01-24] MEDS: DIVALPROEX SODIUM 500 MG DR TABLET PO SCH ×2 (20:08→20:26)
[2022-01-24] MEDS: CloZAPine 100 MG TABLET PO SCH (20:08)
[2022-01-24] MEDS: MELATONIN 5 MG TABLET PO SCH (20:08)
[2022-01-25 08:00] VITALS: BP 120/81
[2022-01-25] MEDS: SERTRALINE HCL 100 MG TABLET PO SCH (09:01)
[2022-01-25] MEDS: OMEGA-3/DHA/EPA/FISH OIL 1,000 MG CAPSULE PO SCH (09:01)
[2022-01-25] MEDS: NALTREXONE HCL 50 MG TABLET PO SCH (09:01)
[2022-01-25] MEDS: GABAPENTIN 400 MG CAPSULE PO SCH ×4 (09:01→20:11)
[2022-01-25] MEDS: TraZODone HCL 100 MG TABLET PO SCH ×2 (09:02→16:14)
[2022-01-25 17:03] VITALS: BP 113/70
[2022-01-25] MEDS: MELATONIN 5 MG TABLET PO SCH (20:11)
[2022-01-25] MEDS: CloZAPine 100 MG TABLET PO SCH (20:11)
[2022-01-25] MEDS: DIVALPROEX SODIUM 500 MG DR TABLET PO SCH (20:12)
[2022-01-26] MEDS: NALTREXONE HCL 50 MG TABLET PO SCH (08:31)
[2022-01-26] MEDS: SERTRALINE HCL 100 MG TABLET PO SCH (08:32)
[2022-01-26] MEDS: GABAPENTIN 400 MG CAPSULE PO SCH ×4 (08:32→20:15)
[2022-01-26] MEDS: OMEGA-3/DHA/EPA/FISH OIL 1,000 MG CAPSULE PO SCH (08:32)
[2022-01-26] MEDS: TraZODone HCL 100 MG TABLET PO SCH ×2 (08:32→16:26)
[2022-01-26 08:58] VITALS: BP 100/62
[2022-01-26 16:32] VITALS: BP 116/81
[2022-01-26] MEDS: DIVALPROEX SODIUM 500 MG DR TABLET PO SCH (20:15)
[2022-01-26] MEDS: MELATONIN 5 MG TABLET PO SCH (20:15)
[2022-01-26] MEDS: CloZAPine 100 MG TABLET PO SCH (20:15)
[2022-01-27] MEDS: NALTREXONE HCL 50 MG TABLET PO SCH (09:55)
[2022-01-27] MEDS: OMEGA-3/DHA/EPA/FISH OIL 1,000 MG CAPSULE PO SCH (09:55)
[2022-01-27] MEDS: SERTRALINE HCL 100 MG TABLET PO SCH (09:55)
[2022-01-27] MEDS: TraZODone HCL 100 MG TABLET PO SCH ×2 (09:57→16:05)
[2022-01-27] MEDS: GABAPENTIN 400 MG CAPSULE PO SCH ×4 (09:57→20:04)
[2022-01-27 12:25] VITALS: BP 137/50
[2022-01-27 15:52] LABS: COVID AG,FIA SOURCE NASOPHARYNGEAL
[2022-01-27 16:08] VITALS: BP 99/79
[2022-01-27] MEDS: DIVALPROEX SODIUM 500 MG DR TABLET PO SCH (20:04)
[2022-01-27] MEDS: CloZAPine 100 MG TABLET PO SCH (20:04)
[2022-01-27] MEDS: MELATONIN 5 MG TABLET PO SCH (20:04)
[2022-01-28 05:32] VITALS: BP 113/69
[2022-01-28 08:00] VITALS: BP 100/69
[2022-01-28] MEDS: GABAPENTIN 400 MG CAPSULE PO SCH ×4 (09:05→20:33)
[2022-01-28] MEDS: SERTRALINE HCL 100 MG TABLET PO SCH (09:05)
[2022-01-28] MEDS: OMEGA-3/DHA/EPA/FISH OIL 1,000 MG CAPSULE PO SCH (09:05)
[2022-01-28] MEDS: NALTREXONE HCL 50 MG TABLET PO SCH (09:05)
[2022-01-28] MEDS: TraZODone HCL 100 MG TABLET PO SCH ×2 (09:05→17:21)
[2022-01-28 09:50] LABS: BASOPHILS % (AUTO) 0.8 % (0.0-2.0); EOSINOPHILS % (AUTO) 2.1 % (1.0-6.0); HEMATOCRIT 35.5 % (36-46); LYMPHOCYTES # (AUTO) 3.2 K/uL (1.0-4.8); MEAN CORPUSCULAR HEMOGLOBIN 29.8 pg (26.0-34.0); MEAN CORPUSCULAR HGB CONC 33.8 G/dL (31.0-37.0); MEAN CORPUSCULAR VOLUME 88 fL (80-100); MONOCYTES # (AUTO) 0.7 K/uL (0.1-1.0); MONOCYTES % (AUTO) 9.9 % (2.0-9.0); NEUTROPHILS # (AUTO) 2.9 K/uL (1.8-7.7); NEUTROPHILS % (AUTO) 41.2 % (40.0-70.0); PLATELET COUNT (AUTO) 159 K/uL (150-450); RED BLOOD CELL COUNT(AUTO) 4.02 MIL/uL (4.00-5.20); RED CELL DISTRIBUTION WIDTH 14.8 % (11.5-14.5)
[2022-01-28 16:33] VITALS: BP 102/66
[2022-01-28] MEDS: DIVALPROEX SODIUM 500 MG DR TABLET PO SCH (20:32)
[2022-01-28] MEDS: CloZAPine 100 MG TABLET PO SCH (20:33)
[2022-01-28] MEDS: MELATONIN 5 MG TABLET PO SCH (20:33)
[2022-01-29 08:02] VITALS: BP 97/64
[2022-01-29] MEDS: NALTREXONE HCL 50 MG TABLET PO SCH (08:43)
[2022-01-29] MEDS: SERTRALINE HCL 100 MG TABLET PO SCH (08:43)
[2022-01-29] MEDS: OMEGA-3/DHA/EPA/FISH OIL 1,000 MG CAPSULE PO SCH (08:43)
[2022-01-29] MEDS: GABAPENTIN 400 MG CAPSULE PO SCH ×2 (08:43→12:47)
[2022-01-29] MEDS: TraZODone HCL 100 MG TABLET PO SCH (08:43)
[2022-01-29] MEDS ORDERED: GABA-1201 PO (11:34)
[2022-01-29] MEDS ORDERED: TRAZ-257 PO (11:34)
[2022-01-29] MEDS ORDERED: MELA5TAB40 PO (11:34)
[2022-01-29] MEDS ORDERED: SERT-440 PO (11:34)
[2022-01-29] MEDS ORDERED: DIVA-112 PO (11:34)
[2022-01-29] MEDS ORDERED: NALT50TA PO (11:34)
[2022-01-29] MEDS ORDERED: CLOZ100T31 PO (11:34)
== END 2022-01-29 14:40 | disposition home or self-care (01) | DRG 750 ==
LOC: EMS 01:04 → 3EI 02:00
PROVIDERS: ADMIT Psychiatry & Neurology Child & Adolescent Psychiatry; ATTEND Psychiatry & Neurology Child & Adolescent Psychiatry
DX: F25.1 Schizoaffective disorder, depressive type (principal); G40.909 Epilepsy, unspecified, not intractable, without status epilepticus; R45.851 Suicidal ideations; D64.9 Anemia, unspecified; Z20.822 Contact with and (suspected) exposure to COVID-19; E03.9 Hypothyroidism, unspecified; F41.9 Anxiety disorder, unspecified; G47.00 Insomnia, unspecified; I10 Essential (primary) hypertension; K21.9 Gastro-esophageal reflux disease without esophagitis; Z59.00 Homelessness unspecified; Z86.16 Personal history of COVID-19
CPT/HCPCS: 80053; 80164; 81003; 84702; 85025; 99285; G0480; Q9967

== ENCOUNTER 2022-04-21 21:38 | Inpatient (IN) | payer MEDICAID, OTHER ==
[~2022-04-21] VITALS: Ht 175.3 cm; Wt 93.2 kg
[~2022-04-21 21:38] MED LIST changes: +DIVA-112 PO; -DIVA-80 PO; -OMEG-108 PO
[2022-04-21] MEDS ORDERED: MAG HYDROX/AL HYDROX/SIMETH 30 ML SUSP UDCUP PO ONE (22:45)
[2022-04-21] MEDS ORDERED: FAMOTIDINE 20 MG TABLET PO ONE (22:45)
[2022-04-21] MEDS ORDERED: ACETAMINOPHEN 500 MG TABLET PO ONE (22:45)
[2022-04-21 23:18] LABS: COVID AG,FIA SOURCE NASOPHARYNGEAL
[2022-04-21 23:33] LABS: BASOPHILS % (AUTO) 0.7 % (0.0-2.0); EOSINOPHILS % (AUTO) 1.3 % (1.0-6.0); HEMATOCRIT 32.4 % (36-46); HEMOGLOBIN 11.1 g/dL (12.0-16.0); LYMPHOCYTES # (AUTO) 4.7 K/uL (1.0-4.8); LYMPHOCYTES % (AUTO) 52.9 % (22.0-44.0); MEAN CORPUSCULAR HEMOGLOBIN 30.2 pg (26.0-34.0); MEAN CORPUSCULAR HGB CONC 34.3 G/dL (31.0-37.0); MEAN CORPUSCULAR VOLUME 88 fL (80-100); MONOCYTES # (AUTO) 0.7 K/uL (0.1-1.0); MONOCYTES % (AUTO) 7.7 % (2.0-9.0); NEUTROPHILS # (AUTO) 3.3 K/uL (1.8-7.7); NEUTROPHILS % (AUTO) 37.4 % (40.0-70.0); PLATELET COUNT (AUTO) 190 K/uL (150-450); RED BLOOD CELL COUNT(AUTO) 3.67 MIL/uL (4.00-5.20); RED CELL DISTRIBUTION WIDTH 13.8 % (11.5-14.5)
[2022-04-21 23:42] LABS: ANION GAP 10 mmol/L (8-16); CARBON DIOXIDE 26 mmol/L (22-29); CHLORIDE 105 mmol/L (98-107); CREATININE 0.98 mg/dL (0.60-1.30); GLUCOSE,RANDOM 98 mg/dL (70-110); POTASSIUM 3.8 mmol/L (3.5-5.1); SODIUM SERUM 141 mmol/L (136-145); UREA NITROGEN, BLOOD 13 mg/dL (7-18)
[2022-04-21 23:44] LABS: GLOMERULAR FILTR. RATE CALC > 60 mL/min (>60)
[2022-04-21 23:55] LABS: B-TYPE NATRIURETIC PEPTIDE 9 pg/mL (0-100)
[2022-04-22] MEDS ORDERED: ASPIRIN 325 MG TABLET PO ONE
[2022-04-22 00:08] LABS: ALANINE AMINOTRANSFERASE 17 U/L (12-78); ALBUMIN 3.4 g/dL (3.4-5.0); ALKALINE PHOSPHATASE 45 U/L (46-116); ASPARTATE AMINOTRANSFERASE 9 U/L (15-37); BILIRUBIN,TOTAL 0.2 mg/dL (0.1-1.0); CREATINE KINASE, TOTAL ONLY 87 U/L (26-192); HCG,QUANTITATIVE < 1 mIU/mL (0-6); TOTAL PROTEIN, SERUM 6.4 g/dL (6.4-8.2)
[2022-04-22] MEDS ORDERED: ROCURONIUM BROMIDE 10 MG/ML 5 ML VIAL ONE (00:32)
[2022-04-22] MEDS ORDERED: ONDANSETRON HCL 4 MG/2 ML VIAL IVP PRN (01:15)
[2022-04-22] MEDS ORDERED: ACETAMINOPHEN 325 MG TABLET PO PRN (01:15)
[2022-04-22] MEDS ORDERED: PHENYLEPHRINE HCL IN 0.9% NACL 400 MCG/10 ML SYRINGE IVP ONE ×2 (01:43→01:58)
[2022-04-22] MEDS ORDERED: NOREPINEPHRINE 8 MG/D5%-WATER 250 ML IV ONE (02:03)
[2022-04-22] MEDS ORDERED: ACETAMINOPHEN 1000 MG/ISO-OSM 100 ML IV ONE (02:32)
[2022-04-22 04:17] VITALS: BP 92/51
[2022-04-22] MEDS ORDERED: NITROGLYCERIN 2% (1 GM=INCH) PACKET TP SCH (06:00)
[2022-04-22] MEDS ORDERED: HEPARIN SODIUM 25000 UNITS/D5W 250 ML IV PRN (06:45)
[2022-04-22] MEDS ORDERED: HEPARIN SODIUM,PORCINE 5,000 UNITS/ML VIAL IVP PRN ×2 (06:45)
[2022-04-22 07:51] VITALS: BP 106/71
[2022-04-22 07:56] LABS: BASOPHILS % (AUTO) 0.7 % (0.0-2.0); EOSINOPHILS % (AUTO) 1.5 % (1.0-6.0); HEMATOCRIT 38.1 % (36-46); HEMOGLOBIN 12.8 g/dL (12.0-16.0); LYMPHOCYTES # (AUTO) 4.7 K/uL (1.0-4.8); LYMPHOCYTES % (AUTO) 56.5 % (22.0-44.0); MEAN CORPUSCULAR HEMOGLOBIN 29.9 pg (26.0-34.0); MEAN CORPUSCULAR HGB CONC 33.5 G/dL (31.0-37.0); MEAN CORPUSCULAR VOLUME 90 fL (80-100); MONOCYTES # (AUTO) 0.7 K/uL (0.1-1.0); MONOCYTES % (AUTO) 8.3 % (2.0-9.0); NEUTROPHILS # (AUTO) 2.8 K/uL (1.8-7.7); PLATELET COUNT (AUTO) 206 K/uL (150-450); RED BLOOD CELL COUNT(AUTO) 4.26 MIL/uL (4.00-5.20); RED CELL DISTRIBUTION WIDTH 13.6 % (11.5-14.5)
[2022-04-22] MEDS ORDERED: HEPARIN SODIUM,PORCINE 5,000 UNITS/ML VIAL SQ SCH (08:00)
[2022-04-22] MEDS ORDERED: ASPIRIN 81 MG CHEWABLE TABLET PO SCH (08:30)
[2022-04-22] MEDS: GABAPENTIN 400 MG CAPSULE PO SCH ×3 (08:30→16:17)
[2022-04-22] MEDS ORDERED: SERTRALINE HCL 100 MG TABLET PO SCH (09:00)
[2022-04-22] MEDS ORDERED: ATORVASTATIN CALCIUM 40 MG TABLET PO SCH (09:00)
[2022-04-22] MEDS ORDERED: METOPROLOL TARTRATE 25 MG TABLET PO SCH (09:00)
[2022-04-22] MEDS ORDERED: TraZODone HCL 100 MG TABLET PO SCH (09:00)
[2022-04-22 10:32] LABS: PROTHROMBIN TIME 11.1 SEC (9.4-11.6)
[2022-04-22 11:39] VITALS: BP 88/58
[2022-04-22] MEDS ORDERED: AMLO-257 PO (15:13)
[2022-04-22 16:02] VITALS: BP 101/62
[2022-04-22 16:15] LABS: CHOL/HDL RATIO 2.3 (3.9-5.7)
[2022-04-22] MEDS ORDERED: DIVALPROEX SODIUM 500 MG DR TABLET PO SCH (21:00)
[2022-04-22] MEDS ORDERED: MELATONIN 5 MG TABLET PO SCH (21:00)
[2022-04-22] MEDS ORDERED: CloZAPine 100 MG TABLET PO SCH (21:00)
== END 2022-04-22 19:09 | disposition home or self-care (01) | DRG 203 ==
LOC: EMS 22:21 → 5S 04-22 02:37
PROVIDERS: ADMIT Internal Medicine; ATTEND Internal Medicine
DX: R07.89 Other chest pain (principal); I95.9 Hypotension, unspecified; D64.9 Anemia, unspecified; F41.1 Generalized anxiety disorder; E66.9 Obesity, unspecified; Z20.822 Contact with and (suspected) exposure to COVID-19; F20.9 Schizophrenia, unspecified; R03.0 Elevated blood-pressure reading, without diagnosis of hypertension; I16.1 Hypertensive emergency; R94.31 Abnormal electrocardiogram [ECG] [EKG]; F31.9 Bipolar disorder, unspecified; Z79.899 Other long term (current) drug therapy; Z86.16 Personal history of COVID-19; Z68.30 Body mass index [BMI] 30.0-30.9, adult; Z91.011 Allergy to milk products; Z91.018 Allergy to other foods
CPT/HCPCS: 71045; 80053; 80061; 82550; 83880; 84484; 84702; 85025; 85610; 85730; 93005; 93306; 99285; J0131; J3490; Q9967; 36415-L1; 36415-TC

== ENCOUNTER 2022-04-26 20:52 | Emergency (ER) | payer OTHER ==
[~2022-04-26] VITALS: Ht 167.6 cm; Wt 67.0 kg
[2022-04-26 21:28] VITALS: BP 120/90
[2022-04-26] MEDS ORDERED: LORazepam 2 MG TABLET PO ONE (22:15)
[2022-04-26 22:17] LABS: EOSINOPHILS % (AUTO) 1.4 % (1.0-6.0); HEMATOCRIT 35.3 % (36-46); LYMPHOCYTES # (AUTO) 3.9 K/uL (1.0-4.8); LYMPHOCYTES % (AUTO) 49.7 % (22.0-44.0); MEAN CORPUSCULAR HEMOGLOBIN 30.2 pg (26.0-34.0); MEAN CORPUSCULAR HGB CONC 33.9 G/dL (31.0-37.0); MEAN CORPUSCULAR VOLUME 89 fL (80-100); MONOCYTES # (AUTO) 0.6 K/uL (0.1-1.0); MONOCYTES % (AUTO) 7.4 % (2.0-9.0); NEUTROPHILS # (AUTO) 3.2 K/uL (1.8-7.7); NEUTROPHILS % (AUTO) 40.5 % (40.0-70.0); PLATELET COUNT (AUTO) 221 K/uL (150-450); RED BLOOD CELL COUNT(AUTO) 3.96 MIL/uL (4.00-5.20); RED CELL DISTRIBUTION WIDTH 13.6 % (11.5-14.5)
[2022-04-26 22:26] LABS: ANION GAP 8 mmol/L (8-16); CALCIUM, TOTAL 9.2 mg/dL (8.8-10.5); CARBON DIOXIDE 28 mmol/L (22-29); CHLORIDE 104 mmol/L (98-107); CREATININE 0.81 mg/dL (0.60-1.30); GLOMERULAR FILTR. RATE CALC > 60 mL/min (>60); GLUCOSE,RANDOM 98 mg/dL (70-110); SODIUM SERUM 140 mmol/L (136-145); UREA NITROGEN, BLOOD 14 mg/dL (7-18)
[2022-04-26 22:32] LABS: ALANINE AMINOTRANSFERASE 32 U/L (12-78); ALBUMIN 3.7 g/dL (3.4-5.0); ALKALINE PHOSPHATASE 55 U/L (46-116); ASPARTATE AMINOTRANSFERASE 16 U/L (15-37); BILIRUBIN,TOTAL 0.3 mg/dL (0.1-1.0); TOTAL PROTEIN, SERUM 7.3 g/dL (6.4-8.2)
[2022-04-27] MEDS ORDERED: ACETAMINOPHEN 500 MG TABLET PO ONE (00:30)
[2022-04-27] MEDS ORDERED: IBUPROFEN 600 MG TABLET PO ONE (00:30)
== END 2022-04-27 02:54 | disposition home or self-care (01) ==
LOC: EMS 20:52
DX: F20.9 Schizophrenia, unspecified (principal); F31.9 Bipolar disorder, unspecified; F41.9 Anxiety disorder, unspecified; M25.572 Pain in left ankle and joints of left foot; Z91.018 Allergy to other foods; Z86.16 Personal history of COVID-19
CPT/HCPCS: 99284; 80053; 84703; 85025; 36415; 73610; G0480

== ENCOUNTER 2022-05-05 21:59 | Emergency (ER) | payer OTHER ==
[~2022-05-05] VITALS: Ht 167.6 cm; Wt 93.0 kg
[2022-05-06 00:57] VITALS: BP 132/74
[2022-05-06 02:59] LABS: APPEARANCE,URINE CLEAR (CLEAR); BILIRUBIN,URINE NEGATIVE (NEGATIVE); GLUCOSE, URINE (UA) NEGATIVE (NEGATIVE); KETONES,URINE NEGATIVE (NEGATIVE); LEUKOCYTE ESTERASE ,URINE NEGATIVE (NEGATIVE); NITRATE,URINE NEGATIVE (NEGATIVE); OCCULT BLOOD,URINE NEGATIVE (NEGATIVE); PROTEIN,URINE NEGATIVE (NEGATIVE); SPECIFIC GRAVITIY, URINE 1.011 (1.003-1.030); UROBILINOGEN,URINE <=1.0 mg/dL (<=1.0)
[2022-05-06] MEDS ORDERED: METR-172 PO (03:24)
[2022-05-06] MEDS ORDERED: ONDA-104 PO (03:24)
== END 2022-05-06 04:33 | disposition home or self-care (01) ==
LOC: EMS 22:00
DX: N76.0 Acute vaginitis (principal); R11.2 Nausea with vomiting, unspecified; F41.9 Anxiety disorder, unspecified; F31.9 Bipolar disorder, unspecified; F20.9 Schizophrenia, unspecified; Z86.16 Personal history of COVID-19; Z98.890 Other specified postprocedural states; Z91.011 Allergy to milk products; Z91.018 Allergy to other foods
CPT/HCPCS: 81003; 84703; 99283

== ENCOUNTER 2022-05-16 21:52 | Inpatient (IN) | payer MEDICAID, OTHER ==
[~2022-05-16] VITALS: Ht 167.6 cm; Wt 74.9 kg
[~2022-05-16 21:52] MED LIST changes: +METR-172 PO; +ONDA-104 PO
[2022-05-17 01:22] LABS: COVID AG,FIA SOURCE NASOPHARYNGEAL
[2022-05-17 01:37] LABS: BASOPHILS % (AUTO) 0.5 % (0.0-2.0); EOSINOPHILS % (AUTO) 1.3 % (1.0-6.0); HEMATOCRIT 34.2 % (36-46); HEMOGLOBIN 11.7 g/dL (12.0-16.0); LYMPHOCYTES # (AUTO) 4.9 K/uL (1.0-4.8); MEAN CORPUSCULAR HEMOGLOBIN 30.3 pg (26.0-34.0); MEAN CORPUSCULAR HGB CONC 34.1 G/dL (31.0-37.0); MEAN CORPUSCULAR VOLUME 89 fL (80-100); MONOCYTES # (AUTO) 0.7 K/uL (0.1-1.0); MONOCYTES % (AUTO) 7.8 % (2.0-9.0); NEUTROPHILS # (AUTO) 3.6 K/uL (1.8-7.7); NEUTROPHILS % (AUTO) 38.4 % (40.0-70.0); PLATELET COUNT (AUTO) 249 K/uL (150-450); RED BLOOD CELL COUNT(AUTO) 3.85 MIL/uL (4.00-5.20); RED CELL DISTRIBUTION WIDTH 14.5 % (11.5-14.5)
[2022-05-17 01:40] LABS: APPEARANCE,URINE HAZY (CLEAR); BILIRUBIN,URINE NEGATIVE (NEGATIVE); GLUCOSE, URINE (UA) NEGATIVE (NEGATIVE); KETONES,URINE NEGATIVE (NEGATIVE); LEUKOCYTE ESTERASE ,URINE NEGATIVE (NEGATIVE); NITRATE,URINE NEGATIVE (NEGATIVE); OCCULT BLOOD,URINE NEGATIVE (NEGATIVE); PROTEIN,URINE NEGATIVE (NEGATIVE); SPECIFIC GRAVITIY, URINE 1.017 (1.003-1.030); UROBILINOGEN,URINE <=1.0 mg/dL (<=1.0)
[2022-05-17 01:44] LABS: ANION GAP 10 mmol/L (8-16); CALCIUM, TOTAL 9.1 mg/dL (8.8-10.5); CARBON DIOXIDE 28 mmol/L (22-29); CHLORIDE 101 mmol/L (98-107); GLOMERULAR FILTR. RATE CALC > 60 mL/min (>60); GLUCOSE,RANDOM 91 mg/dL (70-110); POTASSIUM 3.6 mmol/L (3.5-5.1); SODIUM SERUM 139 mmol/L (136-145); UREA NITROGEN, BLOOD 13 mg/dL (7-18)
[2022-05-17 01:46] LABS: AMPHET/METH SCREEN,URINE NEGATIVE (NEGATIVE); BARBITURATE SCREEN, URINE NEGATIVE (NEGATIVE); BENZODIAZEPINES SCREEN,URINE NEGATIVE (NEGATIVE); CANNABINOID SCREEN,URINE NEGATIVE (NEGATIVE); COCAINE SCREEN,URINE NEGATIVE (NEGATIVE); METHADONE SCREEN, URINE NEGATIVE (NEGATIVE); OPIATE SCREEN,URINE NEGATIVE (NEGATIVE)
[2022-05-17 01:47] LABS: PHENCYCLIDINE SCREEN,URINE NEGATIVE (NEGATIVE)
[2022-05-17 01:52] LABS: ALANINE AMINOTRANSFERASE 16 U/L (12-78); ALBUMIN 3.5 g/dL (3.4-5.0); ALKALINE PHOSPHATASE 42 U/L (46-116); ASPARTATE AMINOTRANSFERASE 6 U/L (15-37); BILIRUBIN,TOTAL 0.3 mg/dL (0.1-1.0); TOTAL PROTEIN, SERUM 6.9 g/dL (6.4-8.2); VALPROIC ACID 58 mcg/mL (50-100)
[2022-05-17 03:20] LABS: HCG,QUANTITATIVE < 1 mIU/mL (0-6)
[2022-05-17] MEDS ORDERED: LORazepam 2 MG TABLET PO PRN (04:15)
[2022-05-17] MEDS ORDERED: ZOLPIDEM TARTRATE 10 MG TABLET PO PRN (04:15)
[2022-05-17] MEDS ORDERED: HALOPERIDOL 5 MG TABLET PO PRN (04:15)
[2022-05-17 05:46] VITALS: BP 128/77
[2022-05-17] MEDS ORDERED: ALBUTEROL SULFATE HFA 90 MCG/PUFF 8 GM INHALER IH PRN (08:15)
[2022-05-17] MEDS ORDERED: PETROLATUM,WHITE 28 GM JELLY TP PRN (08:15)
[2022-05-17] MEDS ORDERED: ACETAMINOPHEN 325 MG TABLET PO PRN (08:15)
[2022-05-17] MEDS ORDERED: LOPERAMIDE HCL 2 MG CAPSULE PO PRN (08:15)
[2022-05-17] MEDS ORDERED: GuaiFENesin/D-METHORPHAN [SUGAR-FREE] 200-20MG/10 ML SYRUP UDCUP PO PRN (08:15)
[2022-05-17] MEDS ORDERED: IBUPROFEN 400 MG TABLET PO PRN (08:15)
[2022-05-17] MEDS ORDERED: CloNIDine HCL 0.1 MG TABLET PO PRN (08:15)
[2022-05-17] MEDS ORDERED: DOCUSATE SODIUM 100 MG CAPSULE PO PRN (08:15)
[2022-05-17] MEDS ORDERED: NICOTINE 14 MG/24 HOUR PATCH TD PRN (08:15)
[2022-05-17] MEDS ORDERED: MAG HYDROX/AL HYDROX/SIMETH ES 30 ML SUSPENSION UDCUP PO PRN (08:15)
[2022-05-17] MEDS ORDERED: ONDANSETRON HCL 4 MG TABLET PO PRN (08:15)
[2022-05-17] MEDS ORDERED: MAGNESIUM HYDROXIDE SUSPENSION 30 ML UDCUP PO PRN (08:15)
[2022-05-17] MEDS: SERTRALINE HCL 100 MG TABLET PO SCH (14:19)
[2022-05-17 16:16] VITALS: BP 106/73
[2022-05-17] MEDS ORDERED: TraZODone HCL 100 MG TABLET PO SCH (17:00)
[2022-05-17] MEDS: MELATONIN 5 MG TABLET PO SCH (20:19)
[2022-05-17] MEDS: DIVALPROEX SODIUM 500 MG DR TABLET PO SCH (20:19)
[2022-05-17] MEDS: CloZAPine 100 MG TABLET PO SCH (20:19)
[2022-05-18 08:06] VITALS: BP 96/57
[2022-05-18] MEDS: SERTRALINE HCL 100 MG TABLET PO SCH (08:37)
[2022-05-18] MEDS: NALTREXONE HCL 50 MG TABLET PO SCH (08:38)
[2022-05-18 16:11] VITALS: BP 100/68
[2022-05-18] MEDS: DIVALPROEX SODIUM 500 MG DR TABLET PO SCH (20:21)
[2022-05-18] MEDS: CloZAPine 100 MG TABLET PO SCH (20:21)
[2022-05-18] MEDS: MELATONIN 5 MG TABLET PO SCH (20:22)
[2022-05-18] MEDS: TraZODone HCL 100 MG TABLET PO SCH (20:22)
[2022-05-19 08:30] VITALS: BP 90/55
[2022-05-19] MEDS: SERTRALINE HCL 100 MG TABLET PO SCH (09:35)
[2022-05-19] MEDS: NALTREXONE HCL 50 MG TABLET PO SCH (09:35)
[2022-05-19 16:31] VITALS: BP 102/75
[2022-05-19] MEDS: DIVALPROEX SODIUM 500 MG DR TABLET PO SCH (20:10)
[2022-05-19] MEDS: CloZAPine 100 MG TABLET PO SCH (20:10)
[2022-05-19] MEDS: TraZODone HCL 100 MG TABLET PO SCH (20:10)
[2022-05-19] MEDS: MELATONIN 5 MG TABLET PO SCH (20:10)
[2022-05-20] MEDS: FERROUS SULFATE 325 MG EC TABLET PO SCH ×2 (07:04→16:13)
[2022-05-20] MEDS: NALTREXONE HCL 50 MG TABLET PO SCH (08:25)
[2022-05-20] MEDS: SERTRALINE HCL 100 MG TABLET PO SCH (08:26)
[2022-05-20 09:05] VITALS: BP 107/72
[2022-05-20 10:32] LABS: BASOPHILS % (AUTO) 0.5 % (0.0-2.0); EOSINOPHILS % (AUTO) 1.3 % (1.0-6.0); HEMOGLOBIN 13.2 g/dL (12.0-16.0); LYMPHOCYTES # (AUTO) 3.3 K/uL (1.0-4.8); LYMPHOCYTES % (AUTO) 47.4 % (22.0-44.0); MEAN CORPUSCULAR HEMOGLOBIN 29.9 pg (26.0-34.0); MEAN CORPUSCULAR HGB CONC 33.7 G/dL (31.0-37.0); MEAN CORPUSCULAR VOLUME 89 fL (80-100); MONOCYTES # (AUTO) 0.6 K/uL (0.1-1.0); MONOCYTES % (AUTO) 9.3 % (2.0-9.0); NEUTROPHILS # (AUTO) 2.9 K/uL (1.8-7.7); NEUTROPHILS % (AUTO) 41.5 % (40.0-70.0); PLATELET COUNT (AUTO) 262 K/uL (150-450); RED CELL DISTRIBUTION WIDTH 14.6 % (11.5-14.5)
[2022-05-20 16:30] VITALS: BP 129/85
[2022-05-20] MEDS: DIVALPROEX SODIUM 500 MG DR TABLET PO SCH (20:29)
[2022-05-20] MEDS: TraZODone HCL 100 MG TABLET PO SCH (20:29)
[2022-05-20] MEDS: MELATONIN 5 MG TABLET PO SCH (20:29)
[2022-05-20] MEDS: CloZAPine 100 MG TABLET PO SCH (20:30)
[2022-05-21] MEDS: FERROUS SULFATE 325 MG EC TABLET PO SCH (06:36)
[2022-05-21 08:30] VITALS: BP 98/60
[2022-05-21] MEDS: SERTRALINE HCL 100 MG TABLET PO SCH (08:48)
[2022-05-21] MEDS: NALTREXONE HCL 50 MG TABLET PO SCH (08:48)
[2022-05-21] MEDS ORDERED: TRAZ-257 PO (12:23)
[2022-05-21] MEDS ORDERED: NALT50TA PO (12:23)
[2022-05-21] MEDS ORDERED: MELA5TAB40 PO (12:23)
[2022-05-21] MEDS ORDERED: FERR325T27 PO (12:23)
[2022-05-21] MEDS ORDERED: SERT-440 PO (12:23)
[2022-05-21] MEDS ORDERED: CLOZ100T31 PO (12:23)
[2022-05-21] MEDS ORDERED: DIVA-112 PO (12:23)
== END 2022-05-21 12:18 | disposition home or self-care (01) | DRG 750 ==
LOC: EMS 21:53 → 3EI 05-17 04:55
PROVIDERS: ADMIT Psychiatry & Neurology Psychiatry; ATTEND Psychiatry & Neurology Psychiatry
DX: F25.1 Schizoaffective disorder, depressive type (principal); R45.851 Suicidal ideations; D64.9 Anemia, unspecified; Z20.822 Contact with and (suspected) exposure to COVID-19; F31.9 Bipolar disorder, unspecified; I10 Essential (primary) hypertension; J44.9 Chronic obstructive pulmonary disease, unspecified; Z79.899 Other long term (current) drug therapy; Z86.16 Personal history of COVID-19; Z91.011 Allergy to milk products; Z91.018 Allergy to other foods
CPT/HCPCS: 80053; 80164; 81003; 84702; 85025; 99285; G0480; Q9967

== ENCOUNTER 2022-05-31 22:14 | Emergency (ER) | payer MEDICAID, OTHER ==
[~2022-05-31] VITALS: Ht 167.6 cm; Wt 90.9 kg
[~2022-05-31 22:14] MED LIST changes: +FERR325T27 PO; -GABA-1201 PO; -METR-172 PO; -ONDA-104 PO
[2022-06-01 00:22] LABS: HEMOGLOBIN 10.5 g/dL (12.0-16.0); NEUTROPHILS # (AUTO) 2.3 K/uL (1.8-7.7)
[2022-06-01 00:31] LABS: EOSINOPHILS % (AUTO) 1.4 % (1.0-6.0); LYMPHOCYTES # (AUTO) 4.3 K/uL (1.0-4.8); LYMPHOCYTES % (AUTO) 58.1 % (22.0-44.0); MEAN CORPUSCULAR HGB CONC 33.9 G/dL (31.0-37.0); MEAN CORPUSCULAR VOLUME 89 fL (80-100); MONOCYTES # (AUTO) 0.6 K/uL (0.1-1.0); MONOCYTES % (AUTO) 8.3 % (2.0-9.0); NEUTROPHILS % (AUTO) 31.2 % (40.0-70.0); PLATELET COUNT (AUTO) 229 K/uL (150-450); RED CELL DISTRIBUTION WIDTH 14.3 % (11.5-14.5)
[2022-06-01 00:42] LABS: ALANINE AMINOTRANSFERASE 15 U/L (12-78); ALKALINE PHOSPHATASE 34 U/L (46-116); ANION GAP 9 mmol/L (8-16); ASPARTATE AMINOTRANSFERASE 6 U/L (15-37); BILIRUBIN,TOTAL 0.2 mg/dL (0.1-1.0); CALCIUM, TOTAL 8.9 mg/dL (8.8-10.5); CARBON DIOXIDE 29 mmol/L (22-29); CHLORIDE 104 mmol/L (98-107); CREATININE 0.78 mg/dL (0.60-1.30); GLOMERULAR FILTR. RATE CALC > 60 mL/min (>60); GLUCOSE,RANDOM 85 mg/dL (70-110); POTASSIUM 3.9 mmol/L (3.5-5.1); SODIUM SERUM 142 mmol/L (136-145); TOTAL PROTEIN, SERUM 5.9 g/dL (6.4-8.2); UREA NITROGEN, BLOOD 15 mg/dL (7-18)
[2022-06-01] MEDS ORDERED: POLY17PO PO (02:25)
[2022-06-01 03:12] VITALS: BP 100/66
== END 2022-06-01 04:58 | disposition home or self-care (01) ==
LOC: EMS 22:15
DX: K59.00 Constipation, unspecified (principal); F20.9 Schizophrenia, unspecified; F41.9 Anxiety disorder, unspecified; K64.5 Perianal venous thrombosis; Z86.16 Personal history of COVID-19
CPT/HCPCS: 74018; 80053; 85025; 99284; 36415-L1; 36415-TC

== ENCOUNTER 2022-06-16 20:05 | Emergency (ER) | payer OTHER ==
[~2022-06-16] VITALS: Ht 167.6 cm; Wt 72.2 kg
[~2022-06-16 20:05] MED LIST changes: +POLY17PO PO
[2022-06-16 22:57] VITALS: BP 133/78
[2022-06-16] MEDS ORDERED: MAGNESIUM HYDROXIDE SUSPENSION 30 ML UDCUP PO ONE (23:15)
[2022-06-16] MEDS ORDERED: ACETAMINOPHEN 500 MG TABLET PO ONE (23:15)
== END 2022-06-17 02:02 | disposition home or self-care (01) ==
LOC: EMS 20:05
DX: R10.10 Upper abdominal pain, unspecified (principal); K59.00 Constipation, unspecified; F25.1 Schizoaffective disorder, depressive type; F41.9 Anxiety disorder, unspecified; F31.9 Bipolar disorder, unspecified; Z87.19 Personal history of other diseases of the digestive system; Z86.16 Personal history of COVID-19; Z98.890 Other specified postprocedural states; Z91.011 Allergy to milk products; Z91.018 Allergy to other foods
CPT/HCPCS: 82271; 99283

== ENCOUNTER 2022-06-27 17:51 | Emergency (ER) | payer OTHER ==
[~2022-06-27] VITALS: Ht 167.6 cm; Wt 79.6 kg
[~2022-06-27 17:51] MED LIST changes: +CLOZ100T11 PO; -CLOZ100T31 PO
[2022-06-27 19:01] LABS: APPEARANCE,URINE HAZY (CLEAR); BILIRUBIN,URINE NEGATIVE (NEGATIVE); GLUCOSE, URINE (UA) NEGATIVE (NEGATIVE); KETONES,URINE NEGATIVE (NEGATIVE); LEUKOCYTE ESTERASE ,URINE NEGATIVE (NEGATIVE); NITRATE,URINE NEGATIVE (NEGATIVE); OCCULT BLOOD,URINE NEGATIVE (NEGATIVE); PH,URINE 7.5 (5.0-8.0); PROTEIN,URINE TRACE mg/dL (NEGATIVE); SPECIFIC GRAVITIY, URINE 1.019 (1.003-1.030); UROBILINOGEN,URINE <=1.0 mg/dL (<=1.0)
[2022-06-27 19:06] LABS: AMPHET/METH SCREEN,URINE NEGATIVE (NEGATIVE); BARBITURATE SCREEN, URINE NEGATIVE (NEGATIVE); BENZODIAZEPINES SCREEN,URINE NEGATIVE (NEGATIVE); CANNABINOID SCREEN,URINE NEGATIVE (NEGATIVE); COCAINE SCREEN,URINE NEGATIVE (NEGATIVE); METHADONE SCREEN, URINE NEGATIVE (NEGATIVE); OPIATE SCREEN,URINE NEGATIVE (NEGATIVE)
[2022-06-27 19:07] LABS: PHENCYCLIDINE SCREEN,URINE NEGATIVE (NEGATIVE)
[2022-06-27 22:55] LABS: BASOPHILS % (AUTO) 0.4 % (0.0-2.0); HEMATOCRIT 35.1 % (36-46); HEMOGLOBIN 11.7 g/dL (12.0-16.0); LYMPHOCYTES # (AUTO) 4.1 K/uL (1.0-4.8); LYMPHOCYTES % (AUTO) 43.7 % (22.0-44.0); MEAN CORPUSCULAR HEMOGLOBIN 30.5 pg (26.0-34.0); MEAN CORPUSCULAR HGB CONC 33.2 G/dL (31.0-37.0); MEAN CORPUSCULAR VOLUME 92 fL (80-100); MONOCYTES % (AUTO) 10.6 % (2.0-9.0); NEUTROPHILS # (AUTO) 4.1 K/uL (1.8-7.7); NEUTROPHILS % (AUTO) 44.3 % (40.0-70.0); PLATELET COUNT (AUTO) 181 K/uL (150-450); RED BLOOD CELL COUNT(AUTO) 3.82 MIL/uL (4.00-5.20); RED CELL DISTRIBUTION WIDTH 14.5 % (11.5-14.5)
[2022-06-27 23:08] LABS: CALCIUM, TOTAL 9.1 mg/dL (8.8-10.5); CHLORIDE 107 mmol/L (98-107); GLUCOSE,RANDOM 118 mg/dL (70-110); POTASSIUM 3.6 mmol/L (3.5-5.1); SODIUM SERUM 142 mmol/L (136-145); UREA NITROGEN, BLOOD 10 mg/dL (7-18)
[2022-06-27 23:17] LABS: ALANINE AMINOTRANSFERASE 20 U/L (12-78); ALBUMIN 3.3 g/dL (3.4-5.0); ALKALINE PHOSPHATASE 51 U/L (46-116); ANION GAP 7 mmol/L (8-16); ASPARTATE AMINOTRANSFERASE 5 U/L (15-37); BILIRUBIN,TOTAL 0.4 mg/dL (0.1-1.0); CARBON DIOXIDE 28 mmol/L (22-29); GLOMERULAR FILTR. RATE CALC > 60 mL/min (>60); HCG,QUANTITATIVE < 1 mIU/mL (0-6); LIPASE 110 U/L (73-393); TOTAL PROTEIN, SERUM 6.5 g/dL (6.4-8.2)
[2022-06-28 00:40] VITALS: BP 110/74
[2022-06-28] MEDS ORDERED: POLY17PO PO (01:13)
== END 2022-06-28 02:47 | disposition home or self-care (01) ==
LOC: EMS 17:59
DX: K59.00 Constipation, unspecified (principal); F41.9 Anxiety disorder, unspecified; R30.0 Dysuria; F20.9 Schizophrenia, unspecified; F31.9 Bipolar disorder, unspecified; Z98.890 Other specified postprocedural states; Z91.011 Allergy to milk products; Z91.018 Allergy to other foods
CPT/HCPCS: 74022; 80053; 81003; 83690; 84702; 84703; 85025; 99284

== ENCOUNTER 2022-06-28 15:02 | Emergency (ER) | payer OTHER ==
[~2022-06-28] VITALS: Ht 167.6 cm; Wt 63.6 kg
[2022-06-28 17:25] LABS: BASOPHILS % (AUTO) 0.6 % (0.0-2.0); EOSINOPHILS % (AUTO) 1.6 % (1.0-6.0); HEMATOCRIT 36.4 % (36-46); LYMPHOCYTES # (AUTO) 4.4 K/uL (1.0-4.8); MEAN CORPUSCULAR HEMOGLOBIN 30.4 pg (26.0-34.0); MEAN CORPUSCULAR HGB CONC 32.9 G/dL (31.0-37.0); MEAN CORPUSCULAR VOLUME 93 fL (80-100); MONOCYTES % (AUTO) 11.1 % (2.0-9.0); NEUTROPHILS # (AUTO) 3.3 K/uL (1.8-7.7); NEUTROPHILS % (AUTO) 37.7 % (40.0-70.0); PLATELET COUNT (AUTO) 194 K/uL (150-450); RED BLOOD CELL COUNT(AUTO) 3.93 MIL/uL (4.00-5.20); RED CELL DISTRIBUTION WIDTH 14.7 % (11.5-14.5)
[2022-06-28 17:33] VITALS: BP 116/72
[2022-06-28 17:36] LABS: ANION GAP 6 mmol/L (8-16); CALCIUM, TOTAL 9.7 mg/dL (8.8-10.5); CARBON DIOXIDE 26 mmol/L (22-29); CHLORIDE 106 mmol/L (98-107); CREATININE 0.73 mg/dL (0.60-1.30); GLUCOSE,RANDOM 101 mg/dL (70-110); POTASSIUM 3.5 mmol/L (3.5-5.1); SODIUM SERUM 138 mmol/L (136-145); UREA NITROGEN, BLOOD 10 mg/dL (7-18)
[2022-06-28 17:37] LABS: GLOMERULAR FILTR. RATE CALC > 60 mL/min (>60)
[2022-06-28 17:42] LABS: ALANINE AMINOTRANSFERASE 20 U/L (12-78); ALBUMIN 3.8 g/dL (3.4-5.0); ALKALINE PHOSPHATASE 55 U/L (46-116); ASPARTATE AMINOTRANSFERASE 7 U/L (15-37); BILIRUBIN,TOTAL 0.5 mg/dL (0.1-1.0); TOTAL PROTEIN, SERUM 7.1 g/dL (6.4-8.2)
[2022-06-28 17:45] LABS: PLATELET MORPHOLOGY COMMENT LARGE PLTS PRESENT
[2022-06-28 17:55] LABS: AMPHET/METH SCREEN,URINE NEGATIVE (NEGATIVE); BARBITURATE SCREEN, URINE NEGATIVE (NEGATIVE); BENZODIAZEPINES SCREEN,URINE NEGATIVE (NEGATIVE); CANNABINOID SCREEN,URINE NEGATIVE (NEGATIVE); COCAINE SCREEN,URINE NEGATIVE (NEGATIVE); METHADONE SCREEN, URINE NEGATIVE (NEGATIVE); OPIATE SCREEN,URINE NEGATIVE (NEGATIVE)
[2022-06-28 17:56] LABS: PHENCYCLIDINE SCREEN,URINE NEGATIVE (NEGATIVE)
[2022-06-28] MEDS ORDERED: DIPHENOXYLATE/ATROP 2.5-0.025 MG TABLET PO ONE (18:15)
[2022-06-28] MEDS ORDERED: PHENYLEPHRINE/SHK LV/MIN OIL/PET 57 GM OINTMENT TP ONE (18:15)
[2022-06-28] MEDS ORDERED: TraZODone HCL 50 MG TABLET PO ONE (18:15)
== END 2022-06-28 18:42 | disposition home or self-care (01) ==
LOC: EMS 15:05
DX: R19.7 Diarrhea, unspecified (principal); F41.9 Anxiety disorder, unspecified; F31.9 Bipolar disorder, unspecified; F20.9 Schizophrenia, unspecified; Z98.890 Other specified postprocedural states; Z91.011 Allergy to milk products; Z91.02 Food additives allergy status
CPT/HCPCS: 99284; 80053; 85025; 36415; 80307; G0480

== ENCOUNTER 2022-07-07 19:15 | Emergency (ER) | payer OTHER ==
[~2022-07-07] VITALS: Ht 167.6 cm; Wt 63.6 kg
[2022-07-07] MEDS ORDERED: KETOROLAC TROMETHAMINE 60 MG/2 ML VIAL IM ONE (22:30)
[2022-07-07] MEDS ORDERED: PEG 3350/NA SULF,BICARB,CL/KCL 4000 ML SOLUTION PO ONE (22:30)
[2022-07-07 23:48] VITALS: BP 141/88
== END 2022-07-08 00:43 | disposition home or self-care (01) ==
LOC: EMS 19:43
DX: K59.00 Constipation, unspecified (principal); F41.9 Anxiety disorder, unspecified; F31.9 Bipolar disorder, unspecified; F20.9 Schizophrenia, unspecified; Z87.19 Personal history of other diseases of the digestive system; Z86.16 Personal history of COVID-19; Z98.890 Other specified postprocedural states; Z91.011 Allergy to milk products; Z91.018 Allergy to other foods
CPT/HCPCS: 99283; 96372; J1885

== ENCOUNTER 2022-10-04 19:20 | Emergency (ER) | payer OTHER ==
[~2022-10-04] VITALS: Ht 167.6 cm; Wt 65.9 kg
[2022-10-04 19:46] LABS: BASOPHILS % (AUTO) 0.5 % (0.0-2.0); EOSINOPHILS % (AUTO) 1.2 % (1.0-6.0); HEMATOCRIT 38.2 % (36-46); HEMOGLOBIN 12.5 g/dL (12.0-16.0); LYMPHOCYTES # (AUTO) 4.1 K/uL (1.0-4.8); LYMPHOCYTES % (AUTO) 53.1 % (22.0-44.0); MEAN CORPUSCULAR HEMOGLOBIN 30.2 pg (26.0-34.0); MEAN CORPUSCULAR HGB CONC 32.7 G/dL (31.0-37.0); MEAN CORPUSCULAR VOLUME 92 fL (80-100); MONOCYTES # (AUTO) 0.6 K/uL (0.1-1.0); MONOCYTES % (AUTO) 8.4 % (2.0-9.0); NEUTROPHILS # (AUTO) 2.8 K/uL (1.8-7.7); NEUTROPHILS % (AUTO) 36.8 % (40.0-70.0); PLATELET COUNT (AUTO) 231 K/uL (150-450); RED BLOOD CELL COUNT(AUTO) 4.14 MIL/uL (4.00-5.20); RED CELL DISTRIBUTION WIDTH 13.7 % (11.5-14.5)
[2022-10-04 19:54] LABS: ANION GAP 8 mmol/L (8-16); CALCIUM, TOTAL 9.5 mg/dL (8.8-10.5); CARBON DIOXIDE 29 mmol/L (22-29); CHLORIDE 105 mmol/L (98-107); GLUCOSE,RANDOM 92 mg/dL (70-110); POTASSIUM 3.6 mmol/L (3.5-5.1); SODIUM SERUM 142 mmol/L (136-145); UREA NITROGEN, BLOOD 10 mg/dL (7-18)
[2022-10-04 19:57] LABS: GLOMERULAR FILTR. RATE CALC > 60 mL/min (>60)
[2022-10-04 19:58] VITALS: BP 130/72
[2022-10-04 19:59] LABS: ALANINE AMINOTRANSFERASE 16 U/L (12-78); ALBUMIN 3.7 g/dL (3.4-5.0); ALKALINE PHOSPHATASE 51 U/L (46-116); ASPARTATE AMINOTRANSFERASE 8 U/L (15-37); BILIRUBIN,TOTAL 0.3 mg/dL (0.1-1.0); TOTAL PROTEIN, SERUM 7.4 g/dL (6.4-8.2)
[2022-10-04] MEDS ORDERED: BENZ1TAB96 PO (20:30)
[2022-10-04] MEDS ORDERED: OXYB5TAB20 PO (20:30)
[2022-10-04] MEDS ORDERED: GABA-533 PO (20:30)
[2022-10-04] MEDS ORDERED: LEVO50TA11 PO (20:30)
[2022-10-04] MEDS ORDERED: OMEP20CA12 PO (20:30)
[2022-10-04] MEDS ORDERED: FERR-89 PO (20:30)
[2022-10-04] MEDS ORDERED: PALI234D IM (20:30)
[2022-10-04] MEDS ORDERED: HALOPERIDOL 5 MG TABLET PO ONE (20:30)
[2022-10-04] MEDS ORDERED: LORazepam 1 MG TABLET PO ONE (20:30)
== END 2022-10-04 21:44 | disposition home or self-care (01) ==
LOC: EMS 19:21
DX: F41.9 Anxiety disorder, unspecified (principal); R45.851 Suicidal ideations; F25.1 Schizoaffective disorder, depressive type; F31.9 Bipolar disorder, unspecified; Z98.890 Other specified postprocedural states; Z91.011 Allergy to milk products; Z91.018 Allergy to other foods
CPT/HCPCS: 99284; 80053; 84703; 85025; 36415; G0480

== ENCOUNTER 2022-10-05 19:34 | Inpatient (IN) | payer MEDICAID, OTHER ==
[~2022-10-05] VITALS: Ht 167.6 cm; Wt 73.5 kg
[~2022-10-05 19:34] MED LIST changes: +BENZ1TAB96 PO; +FERR-89 PO; -FERR325T27 PO; +GABA-533 PO; +LEVO50TA11 PO; -MELA5TAB40 PO; -NALT50TA PO; +OMEP20CA12 PO; +OXYB5TAB20 PO; +PALI234D IM; -POLY17PO PO; -SERT-440 PO
[2022-10-05 20:18] LABS: BASOPHILS % (AUTO) 0.8 % (0.0-2.0); EOSINOPHILS % (AUTO) 1.2 % (1.0-6.0); HEMATOCRIT 37.1 % (36-46); HEMOGLOBIN 12.3 g/dL (12.0-16.0); LYMPHOCYTES # (AUTO) 3.6 K/uL (1.0-4.8); LYMPHOCYTES % (AUTO) 43.4 % (22.0-44.0); MEAN CORPUSCULAR HEMOGLOBIN 30.5 pg (26.0-34.0); MEAN CORPUSCULAR HGB CONC 33.2 G/dL (31.0-37.0); MEAN CORPUSCULAR VOLUME 92 fL (80-100); MONOCYTES # (AUTO) 0.9 K/uL (0.1-1.0); MONOCYTES % (AUTO) 10.2 % (2.0-9.0); NEUTROPHILS # (AUTO) 3.7 K/uL (1.8-7.7); NEUTROPHILS % (AUTO) 44.4 % (40.0-70.0); PLATELET COUNT (AUTO) 221 K/uL (150-450); RED BLOOD CELL COUNT(AUTO) 4.04 MIL/uL (4.00-5.20); RED CELL DISTRIBUTION WIDTH 13.8 % (11.5-14.5)
[2022-10-05 20:27] LABS: ANION GAP 11 mmol/L (8-16); CALCIUM, TOTAL 9.2 mg/dL (8.8-10.5); CARBON DIOXIDE 26 mmol/L (22-29); CHLORIDE 104 mmol/L (98-107); CREATININE 0.85 mg/dL (0.60-1.30); GLOMERULAR FILTR. RATE CALC > 60 mL/min (>60); GLUCOSE,RANDOM 103 mg/dL (70-110); POTASSIUM 3.6 mmol/L (3.5-5.1); SODIUM SERUM 141 mmol/L (136-145); UREA NITROGEN, BLOOD 8 mg/dL (7-18)
[2022-10-05] MEDS ORDERED: HALOPERIDOL LACTATE 5 MG/ML VIAL IM ONE (20:30)
[2022-10-05] MEDS ORDERED: LORazepam 2 MG/ML VIAL IM ONE (20:30)
[2022-10-05] MEDS ORDERED: HALOPERIDOL 5 MG TABLET PO ONE (20:30)
[2022-10-05] MEDS ORDERED: LORazepam 2 MG TABLET PO ONE (20:30)
[2022-10-05] MEDS ORDERED: DiphenhydrAMINE HCL 50 MG/ML VIAL IM ONE (20:30)
[2022-10-05 20:35] LABS: COVID AG,FIA SOURCE NASOPHARYNGEAL
[2022-10-05 20:39] LABS: ALANINE AMINOTRANSFERASE 19 U/L (12-78); ALBUMIN 4.1 g/dL (3.4-5.0); ALKALINE PHOSPHATASE 55 U/L (46-116); ASPARTATE AMINOTRANSFERASE 9 U/L (15-37); BILIRUBIN,TOTAL 0.3 mg/dL (0.1-1.0); HCG,QUANTITATIVE < 1 mIU/mL (0-6); TOTAL PROTEIN, SERUM 7.9 g/dL (6.4-8.2)
[2022-10-05] MEDS ORDERED: LOPERAMIDE HCL 2 MG CAPSULE PO PRN (21:15)
[2022-10-05] MEDS ORDERED: TUBERCULIN, PURIFIED PROTEIN DERIVATIVE 5 TU/0.1 ML SYRINGE ID ONE (21:15)
[2022-10-05] MEDS ORDERED: MAGNESIUM HYDROXIDE SUSPENSION 30 ML UDCUP PO PRN (21:15)
[2022-10-05] MEDS ORDERED: PROMETHAZINE HCL 25 MG TABLET PO PRN (21:15)
[2022-10-05] MEDS ORDERED: MAG HYDROX/AL HYDROX/SIMETH ES 30 ML SUSPENSION UDCUP PO PRN (21:15)
[2022-10-05] MEDS ORDERED: GuaiFENesin/D-METHORPHAN [SUGAR-FREE] 200-20MG/10 ML SYRUP UDCUP PO PRN (21:15)
[2022-10-05] MEDS ORDERED: ACETAMINOPHEN 325 MG TABLET PO PRN (21:15)
[2022-10-05 21:51] LABS: AMPHET/METH SCREEN,URINE NEGATIVE (NEGATIVE); BARBITURATE SCREEN, URINE NEGATIVE (NEGATIVE); BENZODIAZEPINES SCREEN,URINE NEGATIVE (NEGATIVE); CANNABINOID SCREEN,URINE NEGATIVE (NEGATIVE); COCAINE SCREEN,URINE NEGATIVE (NEGATIVE); METHADONE SCREEN, URINE NEGATIVE (NEGATIVE); OPIATE SCREEN,URINE NEGATIVE (NEGATIVE); PHENCYCLIDINE SCREEN,URINE NEGATIVE (NEGATIVE)
[2022-10-06] MEDS: ZOLPIDEM TARTRATE 10 MG TABLET PO PRN (01:47)
[2022-10-06 02:37] VITALS: BP 119/75
[2022-10-06] MEDS ORDERED: INFLUENZA VIRUS VACCINE QVS 2022-23 (6MO+)/PF 60 MCG/0.5 ML SYRINGE IM. ONE (03:00)
[2022-10-06] MEDS ORDERED: PNEUMOCOCCAL VACCINE POLYVALENT 0.5 ML VIAL [PPSV23] IM. ONE (03:00)
[2022-10-06] MEDS: OLANZapine 5 MG RAPDIS TABLET PO PRN ×2 (03:58→13:07)
[2022-10-06] MEDS: HydrOXYzine PAMOATE 50 MG CAPSULE PO PRN ×2 (03:58→13:07)
[2022-10-06 08:29] VITALS: BP 106/78
[2022-10-06 08:40] LABS: HEMOGLOBIN A1C 5.2 % (3.8-5.6)
[2022-10-06 08:52] LABS: CHOL/HDL RATIO 1.7 (3.9-5.7); FREE T4 (FREE THYROXINE) 0.89 ng/dL (0.76-1.46); THYROID STIMULATING HORMONE 10.01 uIU/mL (0.36-3.74)
[2022-10-06] MEDS: NALTREXONE HCL 50 MG TABLET PO SCH (09:08)
[2022-10-06] MEDS: THIAMINE 100 MG TABLET PO SCH ×2 (09:08→18:02)
[2022-10-06] MEDS: MULTIVITAMINS WITH MINERALS, THERAPEUTIC TABLET PO SCH (09:09)
[2022-10-06] MEDS: FOLIC ACID 1 MG TABLET PO SCH (09:09)
[2022-10-06] MEDS: OMEGA-3/DHA/EPA/FISH OIL 1,000 MG CAPSULE PO SCH (09:09)
[2022-10-06] MEDS: SERTRALINE HCL 50 MG TABLET PO SCH (09:10)
[2022-10-06] MEDS ORDERED: PHENYLEPHRINE/COCOA BUTTER RECTAL SUPPOSITORY PR PRN (11:30)
[2022-10-06 20:45] VITALS: BP 118/80
[2022-10-06] MEDS ORDERED: CloZAPine 100 MG TABLET PO SCH (21:00)
[2022-10-06] MEDS: TraZODone HCL 150 MG TABLET PO SCH (21:02)
[2022-10-06] MEDS: MELATONIN 5 MG TABLET PO SCH (21:02)
[2022-10-06] MEDS: DIVALPROEX SODIUM 500 MG ER TABLET PO SCH (21:02)
[2022-10-07 08:21] VITALS: BP 120/83
[2022-10-07] MEDS: MULTIVITAMINS WITH MINERALS, THERAPEUTIC TABLET PO SCH (08:46)
[2022-10-07] MEDS: FOLIC ACID 1 MG TABLET PO SCH (08:46)
[2022-10-07] MEDS: OMEGA-3/DHA/EPA/FISH OIL 1,000 MG CAPSULE PO SCH (08:46)
[2022-10-07] MEDS: SERTRALINE HCL 50 MG TABLET PO SCH (08:46)
[2022-10-07] MEDS: NALTREXONE HCL 50 MG TABLET PO SCH (08:46)
[2022-10-07] MEDS: THIAMINE 100 MG TABLET PO SCH ×2 (08:46→16:51)
[2022-10-07] MEDS: HydrOXYzine PAMOATE 50 MG CAPSULE PO PRN (16:54)
[2022-10-07 20:32] VITALS: BP 109/74
[2022-10-07] MEDS: DIVALPROEX SODIUM 500 MG ER TABLET PO SCH (20:36)
[2022-10-07] MEDS: TraZODone HCL 150 MG TABLET PO SCH (20:36)
[2022-10-07] MEDS: CloZAPine 100 MG TABLET PO SCH (20:36)
[2022-10-07] MEDS: ZOLPIDEM TARTRATE 10 MG TABLET PO PRN (20:38)
[2022-10-07] MEDS: MELATONIN 5 MG TABLET PO SCH (20:38)
[2022-10-08 08:33] VITALS: BP 119/84
[2022-10-08] MEDS: SERTRALINE HCL 50 MG TABLET PO SCH (08:46)
[2022-10-08] MEDS: MULTIVITAMINS WITH MINERALS, THERAPEUTIC TABLET PO SCH (08:46)
[2022-10-08] MEDS: OMEGA-3/DHA/EPA/FISH OIL 1,000 MG CAPSULE PO SCH (08:46)
[2022-10-08] MEDS: THIAMINE 100 MG TABLET PO SCH ×2 (08:46→17:50)
[2022-10-08] MEDS: NALTREXONE HCL 50 MG TABLET PO SCH (08:47)
[2022-10-08] MEDS: FOLIC ACID 1 MG TABLET PO SCH (08:49)
[2022-10-08] MEDS: OXYBUTYNIN CHLORIDE 5 MG TABLET PO SCH (17:51)
[2022-10-08 20:00] VITALS: BP 112/79
[2022-10-08] MEDS: CloZAPine 100 MG TABLET PO SCH (20:35)
[2022-10-08] MEDS: TraZODone HCL 150 MG TABLET PO SCH (20:36)
[2022-10-08] MEDS: DIVALPROEX SODIUM 500 MG ER TABLET PO SCH (20:36)
[2022-10-08] MEDS: MELATONIN 5 MG TABLET PO SCH (20:36)
[2022-10-09] MEDS: LEVOTHYROXINE SODIUM 50 MCG TABLET PO SCH (06:25)
[2022-10-09 08:28] VITALS: BP 110/73
[2022-10-09] MEDS: SERTRALINE HCL 50 MG TABLET PO SCH (08:42)
[2022-10-09] MEDS: OXYBUTYNIN CHLORIDE 5 MG TABLET PO SCH ×2 (08:42→16:56)
[2022-10-09] MEDS: THIAMINE 100 MG TABLET PO SCH ×2 (08:43→16:56)
[2022-10-09] MEDS: NALTREXONE HCL 50 MG TABLET PO SCH (08:43)
[2022-10-09] MEDS: OMEPRAZOLE 20 MG CAPSULE PO SCH (08:43)
[2022-10-09] MEDS: MULTIVITAMINS WITH MINERALS, THERAPEUTIC TABLET PO SCH (08:43)
[2022-10-09] MEDS: FOLIC ACID 1 MG TABLET PO SCH (08:43)
[2022-10-09] MEDS: OMEGA-3/DHA/EPA/FISH OIL 1,000 MG CAPSULE PO SCH (08:43)
[2022-10-09] MEDS: CloZAPine 100 MG TABLET PO SCH (20:15)
[2022-10-09] MEDS: DIVALPROEX SODIUM 500 MG ER TABLET PO SCH (20:20)
[2022-10-09] MEDS: TraZODone HCL 150 MG TABLET PO SCH (20:21)
[2022-10-09] MEDS: MELATONIN 5 MG TABLET PO SCH (20:21)
[2022-10-10] MEDS: LEVOTHYROXINE SODIUM 50 MCG TABLET PO SCH (06:14)
[2022-10-10] MEDS: SERTRALINE HCL 50 MG TABLET PO SCH (08:54)
[2022-10-10] MEDS: MULTIVITAMINS WITH MINERALS, THERAPEUTIC TABLET PO SCH (08:54)
[2022-10-10] MEDS: OXYBUTYNIN CHLORIDE 5 MG TABLET PO SCH ×2 (08:55→16:16)
[2022-10-10] MEDS: NALTREXONE HCL 50 MG TABLET PO SCH (08:55)
[2022-10-10] MEDS: FOLIC ACID 1 MG TABLET PO SCH (08:55)
[2022-10-10] MEDS: THIAMINE 100 MG TABLET PO SCH ×2 (08:55→16:16)
[2022-10-10] MEDS: OMEPRAZOLE 20 MG CAPSULE PO SCH (09:00)
[2022-10-10 09:03] VITALS: BP_SYST 100
[2022-10-10] MEDS: OMEGA-3/DHA/EPA/FISH OIL 1,000 MG CAPSULE PO SCH (09:32)
[2022-10-10] MEDS: HydrOXYzine PAMOATE 50 MG CAPSULE PO PRN (15:04)
[2022-10-10] MEDS: GABAPENTIN 300 MG CAPSULE PO PRN (17:38)
[2022-10-10 20:03] VITALS: BP 111/75
[2022-10-10] MEDS: DIVALPROEX SODIUM 500 MG ER TABLET PO SCH (20:22)
[2022-10-10] MEDS: CloZAPine 100 MG TABLET PO SCH (20:22)
[2022-10-10] MEDS: TraZODone HCL 150 MG TABLET PO SCH (20:22)
[2022-10-10] MEDS: MELATONIN 5 MG TABLET PO SCH (20:28)
[2022-10-11] MEDS: LEVOTHYROXINE SODIUM 50 MCG TABLET PO SCH (06:24)
[2022-10-11 08:21] VITALS: BP 129/73
[2022-10-11] MEDS: OMEPRAZOLE 20 MG CAPSULE PO SCH (08:35)
[2022-10-11] MEDS: OXYBUTYNIN CHLORIDE 5 MG TABLET PO SCH ×2 (08:35→16:16)
[2022-10-11] MEDS: FOLIC ACID 1 MG TABLET PO SCH (08:35)
[2022-10-11] MEDS: SERTRALINE HCL 50 MG TABLET PO SCH (08:35)
[2022-10-11] MEDS: MULTIVITAMINS WITH MINERALS, THERAPEUTIC TABLET PO SCH (08:35)
[2022-10-11] MEDS: OMEGA-3/DHA/EPA/FISH OIL 1,000 MG CAPSULE PO SCH (08:35)
[2022-10-11] MEDS: THIAMINE 100 MG TABLET PO SCH ×2 (08:35→16:16)
[2022-10-11] MEDS: NALTREXONE HCL 50 MG TABLET PO SCH (08:39)
[2022-10-11] MEDS: GABAPENTIN 300 MG CAPSULE PO PRN ×2 (13:18→17:31)
[2022-10-11 20:02] VITALS: BP 126/65
[2022-10-11] MEDS: TraZODone HCL 150 MG TABLET PO SCH (20:11)
[2022-10-11] MEDS: CloZAPine 100 MG TABLET PO SCH (20:11)
[2022-10-11] MEDS: MELATONIN 5 MG TABLET PO SCH (20:11)
[2022-10-11] MEDS: DIVALPROEX SODIUM 500 MG ER TABLET PO SCH (20:11)
[2022-10-12] MEDS: LEVOTHYROXINE SODIUM 50 MCG TABLET PO SCH (06:15)
[2022-10-12 07:27] LABS: BASOPHILS % (AUTO) 0.8 % (0.0-2.0); EOSINOPHILS % (AUTO) 2.5 % (1.0-6.0); HEMATOCRIT 33.7 % (36-46); HEMOGLOBIN 11.6 g/dL (12.0-16.0); LYMPHOCYTES % (AUTO) 60.1 % (22.0-44.0); MEAN CORPUSCULAR HEMOGLOBIN 31.6 pg (26.0-34.0); MEAN CORPUSCULAR HGB CONC 34.4 G/dL (31.0-37.0); MEAN CORPUSCULAR VOLUME 92 fL (80-100); MONOCYTES # (AUTO) 0.6 K/uL (0.1-1.0); MONOCYTES % (AUTO) 9.1 % (2.0-9.0); NEUTROPHILS # (AUTO) 1.8 K/uL (1.8-7.7); NEUTROPHILS % (AUTO) 27.5 % (40.0-70.0); PLATELET COUNT (AUTO) 223 K/uL (150-450); RED BLOOD CELL COUNT(AUTO) 3.67 MIL/uL (4.00-5.20); RED CELL DISTRIBUTION WIDTH 13.6 % (11.5-14.5)
[2022-10-12] MEDS: MULTIVITAMINS WITH MINERALS, THERAPEUTIC TABLET PO SCH (08:14)
[2022-10-12] MEDS: OMEPRAZOLE 20 MG CAPSULE PO SCH (08:14)
[2022-10-12] MEDS: OMEGA-3/DHA/EPA/FISH OIL 1,000 MG CAPSULE PO SCH (08:14)
[2022-10-12] MEDS: OXYBUTYNIN CHLORIDE 5 MG TABLET PO SCH ×2 (08:14→16:56)
[2022-10-12] MEDS: THIAMINE 100 MG TABLET PO SCH ×2 (08:15→16:56)
[2022-10-12] MEDS: SERTRALINE HCL 50 MG TABLET PO SCH (08:15)
[2022-10-12] MEDS: FOLIC ACID 1 MG TABLET PO SCH (08:15)
[2022-10-12] MEDS: NALTREXONE HCL 50 MG TABLET PO SCH (08:15)
[2022-10-12 08:16] VITALS: BP 112/69
[2022-10-12] MEDS: GABAPENTIN 300 MG CAPSULE PO PRN ×2 (12:07→16:57)
[2022-10-12] MEDS ORDERED: NALT50TA PO (13:23)
[2022-10-12] MEDS ORDERED: CLOZ100T11 PO (13:23)
[2022-10-12] MEDS ORDERED: DIVA500T53 PO (13:23)
[2022-10-12] MEDS ORDERED: SERT-439 PO (13:23)
[2022-10-12] MEDS ORDERED: OMEG-135 PO (13:23)
[2022-10-12] MEDS ORDERED: MELA5TAB40 PO (13:23)
[2022-10-12 20:32] VITALS: BP 109/65
[2022-10-12] MEDS: DIVALPROEX SODIUM 500 MG ER TABLET PO SCH (20:45)
[2022-10-12] MEDS: MELATONIN 5 MG TABLET PO SCH (20:45)
[2022-10-12] MEDS: TraZODone HCL 150 MG TABLET PO SCH (20:45)
[2022-10-12] MEDS ORDERED: CloZAPine 100 MG TABLET PO SCH (21:00)
[2022-10-13] MEDS: LEVOTHYROXINE SODIUM 50 MCG TABLET PO SCH (06:32)
[2022-10-13] MEDS: THIAMINE 100 MG TABLET PO SCH (08:21)
[2022-10-13] MEDS: OMEPRAZOLE 20 MG CAPSULE PO SCH (08:21)
[2022-10-13] MEDS: FOLIC ACID 1 MG TABLET PO SCH (08:22)
[2022-10-13] MEDS: MULTIVITAMINS WITH MINERALS, THERAPEUTIC TABLET PO SCH (08:22)
[2022-10-13] MEDS: OXYBUTYNIN CHLORIDE 5 MG TABLET PO SCH (08:22)
[2022-10-13] MEDS: OMEGA-3/DHA/EPA/FISH OIL 1,000 MG CAPSULE PO SCH (08:22)
[2022-10-13] MEDS: SERTRALINE HCL 50 MG TABLET PO SCH (08:22)
[2022-10-13] MEDS: NALTREXONE HCL 50 MG TABLET PO SCH (08:22)
[2022-10-13 08:27] VITALS: BP 112/68
[2022-10-13] MEDS ORDERED: CLOZ100T68 PO (11:39)
[2022-10-13] MEDS ORDERED: DIVA500T53 PO (11:39)
[2022-10-13] MEDS ORDERED: TRAZ150T80 PO (11:40)
[2022-10-13] MEDS ORDERED: NALT50TA6 PO (11:40)
[2022-10-13] MEDS ORDERED: SERT-162 PO (11:40)
[2022-10-13] MEDS ORDERED: MELA5TAB40 PO (11:41)
[2022-10-13] MEDS ORDERED: OMEG-135 PO (11:42)
[2022-10-13] MEDS: GABAPENTIN 300 MG CAPSULE PO PRN (12:21)
== END 2022-10-13 13:16 | disposition home or self-care (01) | DRG 750 ==
LOC: EMS 19:43 → B3A 21:30
PROVIDERS: ADMIT Psychiatry & Neurology Psychiatry; ATTEND Psychiatry & Neurology Psychiatry
DX: F25.0 Schizoaffective disorder, bipolar type (principal); R45.850 Homicidal ideations; R45.851 Suicidal ideations; D64.9 Anemia, unspecified; E03.9 Hypothyroidism, unspecified; F41.9 Anxiety disorder, unspecified; K21.9 Gastro-esophageal reflux disease without esophagitis; R32 Unspecified urinary incontinence; Z55.9 Problems related to education and literacy, unspecified; Z59.9 Problem related to housing and economic circumstances, unspecified; Z63.9 Problem related to primary support group, unspecified; Z65.3 Problems related to other legal circumstances; Z86.16 Personal history of COVID-19; Z91.199 Patient's noncompliance with other medical treatment and regimen due to unspecified reason; Z91.018 Allergy to other foods
CPT/HCPCS: 80053; 80061; 80159; 80164; 80307; 83036; 84439; 84443; 84702; 84703; 85025; 86592; 90686; 90732; 99285; G0480; Q9967

== ENCOUNTER 2022-11-01 13:09 | Inpatient (IN) | payer MEDICAID, OTHER ==
[~2022-11-01] VITALS: Ht 167.6 cm; Wt 65.1 kg
[~2022-11-01 13:09] MED LIST changes: -BENZ1TAB96 PO; +CLOZ100T68 PO; -DIVA-112 PO; +DIVA500T53 PO; -FERR-89 PO; -GABA-533 PO; +MELA5TAB40 PO; +NALT50TA PO; +NALT50TA6 PO; +OMEG-135 PO; -PALI234D IM; +SERT-162 PO; +SERT-439 PO; -TRAZ-257 PO; +TRAZ150T80 PO
[2022-11-01] MEDS ORDERED: OLANZapine 5 MG RAPDIS TABLET PO PRN (16:15)
[2022-11-01] MEDS ORDERED: LORazepam 2 MG TABLET PO PRN (16:15)
[2022-11-01] MEDS ORDERED: ZOLPIDEM TARTRATE 10 MG TABLET PO PRN (16:15)
[2022-11-01 16:37] LABS: APPEARANCE,URINE CLEAR (CLEAR); BILIRUBIN,URINE NEGATIVE (NEGATIVE); GLUCOSE, URINE (UA) NEGATIVE (NEGATIVE); KETONES,URINE NEGATIVE (NEGATIVE); LEUKOCYTE ESTERASE ,URINE NEGATIVE (NEGATIVE); NITRATE,URINE NEGATIVE (NEGATIVE); OCCULT BLOOD,URINE MODERATE (NEGATIVE); PROTEIN,URINE TRACE mg/dL (NEGATIVE); SPECIFIC GRAVITIY, URINE 1.014 (1.003-1.030); UROBILINOGEN,URINE <=1.0 mg/dL (<=1.0)
[2022-11-01 16:42] LABS: BACTERIA,URINE Rare /HPF (None Seen); SQUAMOUS EPITHELIAL CELL,UR Few /LPF (None Seen); WBC,URINE 0-2 /HPF (0-5)
[2022-11-01 19:11] LABS: BASOPHILS % (AUTO) 0.6 % (0.0-2.0); HEMOGLOBIN 12.9 g/dL (12.0-16.0); LYMPHOCYTES # (AUTO) 2.9 K/uL (1.0-4.8); LYMPHOCYTES % (AUTO) 37.5 % (22.0-44.0); MEAN CORPUSCULAR HEMOGLOBIN 30.4 pg (26.0-34.0); MEAN CORPUSCULAR HGB CONC 33.2 G/dL (31.0-37.0); MEAN CORPUSCULAR VOLUME 92 fL (80-100); MONOCYTES # (AUTO) 0.8 K/uL (0.1-1.0); MONOCYTES % (AUTO) 9.8 % (2.0-9.0); NEUTROPHILS % (AUTO) 51.1 % (40.0-70.0); PLATELET COUNT (AUTO) 134 K/uL (150-450); RED BLOOD CELL COUNT(AUTO) 4.26 MIL/uL (4.00-5.20); RED CELL DISTRIBUTION WIDTH 13.5 % (11.5-14.5)
[2022-11-01 19:23] LABS: ANION GAP 11 mmol/L (8-16); CALCIUM, TOTAL 9.1 mg/dL (8.8-10.5); CARBON DIOXIDE 24 mmol/L (22-29); CHLORIDE 104 mmol/L (98-107); CREATININE 0.73 mg/dL (0.60-1.30); GLOMERULAR FILTR. RATE CALC > 60 mL/min (>60); GLUCOSE,RANDOM 103 mg/dL (70-110); SODIUM SERUM 139 mmol/L (136-145); UREA NITROGEN, BLOOD 13 mg/dL (7-18)
[2022-11-01 19:39] LABS: ALANINE AMINOTRANSFERASE 10 U/L (12-78); ALBUMIN 3.6 g/dL (3.4-5.0); ALKALINE PHOSPHATASE 43 U/L (46-116); ASPARTATE AMINOTRANSFERASE 7 U/L (15-37); BILIRUBIN,TOTAL 0.2 mg/dL (0.1-1.0); TOTAL PROTEIN, SERUM 7.2 g/dL (6.4-8.2)
[2022-11-01 20:09] LABS: AMPHET/METH SCREEN,URINE NEGATIVE (NEGATIVE); BARBITURATE SCREEN, URINE NEGATIVE (NEGATIVE); BENZODIAZEPINES SCREEN,URINE NEGATIVE (NEGATIVE); CANNABINOID SCREEN,URINE NEGATIVE (NEGATIVE); COCAINE SCREEN,URINE NEGATIVE (NEGATIVE); METHADONE SCREEN, URINE NEGATIVE (NEGATIVE); OPIATE SCREEN,URINE NEGATIVE (NEGATIVE); PHENCYCLIDINE SCREEN,URINE NEGATIVE (NEGATIVE)
[2022-11-01 20:18] LABS: COVID AG,FIA SOURCE NASOPHARYNGEAL
[2022-11-02 11:00] VITALS: BP 117/80
[2022-11-02] MEDS ORDERED: LOPERAMIDE HCL 2 MG CAPSULE PO PRN (11:30)
[2022-11-02] MEDS ORDERED: MAGNESIUM HYDROXIDE SUSPENSION 30 ML UDCUP PO PRN (11:30)
[2022-11-02] MEDS ORDERED: GuaiFENesin/D-METHORPHAN [SUGAR-FREE] 200-20MG/10 ML SYRUP UDCUP PO PRN (11:30)
[2022-11-02] MEDS ORDERED: PROMETHAZINE HCL 25 MG TABLET PO PRN (11:30)
[2022-11-02] MEDS ORDERED: ACETAMINOPHEN 325 MG TABLET PO PRN (11:30)
[2022-11-02] MEDS ORDERED: HydrOXYzine PAMOATE 50 MG CAPSULE PO PRN (11:30)
[2022-11-02] MEDS ORDERED: MAG HYDROX/AL HYDROX/SIMETH ES 30 ML SUSPENSION UDCUP PO PRN (11:30)
[2022-11-02] MEDS: OXYBUTYNIN CHLORIDE 5 MG TABLET PO SCH (17:19)
[2022-11-02] MEDS: THIAMINE 100 MG TABLET PO SCH (17:19)
[2022-11-02 20:48] VITALS: BP 115/80
[2022-11-02] MEDS: DIVALPROEX SODIUM 500 MG ER TABLET PO SCH (20:52)
[2022-11-02] MEDS: TraZODone HCL 150 MG TABLET PO SCH (20:52)
[2022-11-02] MEDS: MELATONIN 5 MG TABLET PO SCH (20:53)
[2022-11-02] MEDS: CloZAPine 100 MG TABLET PO SCH (20:53)
[2022-11-03] MEDS: LEVOTHYROXINE SODIUM 50 MCG TABLET PO SCH (06:33)
[2022-11-03] MEDS: FERROUS SULFATE 325 MG EC TABLET PO SCH (06:42)
[2022-11-03 07:57] LABS: FREE T4 (FREE THYROXINE) 0.99 ng/dL (0.76-1.46); THYROID STIMULATING HORMONE 8.03 uIU/mL (0.36-3.74)
[2022-11-03] MEDS: OXYBUTYNIN CHLORIDE 5 MG TABLET PO SCH ×2 (08:47→16:00)
[2022-11-03] MEDS: MULTIVITAMINS WITH MINERALS, THERAPEUTIC TABLET PO SCH (08:47)
[2022-11-03] MEDS: OMEGA-3/DHA/EPA/FISH OIL 1,000 MG CAPSULE PO SCH (08:47)
[2022-11-03] MEDS: OMEPRAZOLE 20 MG CAPSULE PO SCH (08:48)
[2022-11-03] MEDS: THIAMINE 100 MG TABLET PO SCH ×2 (08:48→16:00)
[2022-11-03] MEDS: FOLIC ACID 1 MG TABLET PO SCH (08:48)
[2022-11-03] MEDS: NALTREXONE HCL 50 MG TABLET PO SCH (08:48)
[2022-11-03] MEDS: SERTRALINE HCL 100 MG TABLET PO SCH (08:48)
[2022-11-03] MEDS: AmLODIPine BESYLATE 5 MG TABLET PO SCH (08:48)
[2022-11-03 08:51] VITALS: BP 118/80
[2022-11-03] MEDS ORDERED: PALIPERIDONE PALMITATE 117 MG/0.75 ML SYRINGE IM ONE (16:45)
[2022-11-03 20:21] VITALS: BP 101/61
[2022-11-03] MEDS: DIVALPROEX SODIUM 500 MG ER TABLET PO SCH (20:25)
[2022-11-03] MEDS: TraZODone HCL 150 MG TABLET PO SCH (20:25)
[2022-11-03] MEDS: CloZAPine 100 MG TABLET PO SCH (20:38)
[2022-11-03] MEDS: MELATONIN 5 MG TABLET PO SCH (20:38)
[2022-11-04] MEDS: LEVOTHYROXINE SODIUM 50 MCG TABLET PO SCH (06:43)
[2022-11-04] MEDS: FERROUS SULFATE 325 MG EC TABLET PO SCH (06:44)
[2022-11-04 08:06] LABS: HEPATITIS C AB (EIA) Non Reactive (Non Reactive)
[2022-11-04 08:52] VITALS: BP 108/62
[2022-11-04] MEDS: MULTIVITAMINS WITH MINERALS, THERAPEUTIC TABLET PO SCH (09:18)
[2022-11-04] MEDS: OMEPRAZOLE 20 MG CAPSULE PO SCH (09:18)
[2022-11-04] MEDS: NALTREXONE HCL 50 MG TABLET PO SCH (09:18)
[2022-11-04] MEDS: THIAMINE 100 MG TABLET PO SCH ×2 (09:18→16:46)
[2022-11-04] MEDS: OXYBUTYNIN CHLORIDE 5 MG TABLET PO SCH ×2 (09:19→16:46)
[2022-11-04] MEDS: FOLIC ACID 1 MG TABLET PO SCH (09:19)
[2022-11-04] MEDS: AmLODIPine BESYLATE 5 MG TABLET PO SCH (09:19)
[2022-11-04] MEDS: OMEGA-3/DHA/EPA/FISH OIL 1,000 MG CAPSULE PO SCH (09:22)
[2022-11-04] MEDS: SERTRALINE HCL 100 MG TABLET PO SCH (09:23)
[2022-11-04] MEDS: MELATONIN 5 MG TABLET PO SCH (20:33)
[2022-11-04] MEDS: TraZODone HCL 150 MG TABLET PO SCH (20:33)
[2022-11-04] MEDS: CloZAPine 100 MG TABLET PO SCH (20:33)
[2022-11-04] MEDS: DIVALPROEX SODIUM 500 MG ER TABLET PO SCH (20:33)
[2022-11-04 20:45] VITALS: BP 99/61
[2022-11-05] MEDS: FERROUS SULFATE 325 MG EC TABLET PO SCH (06:35)
[2022-11-05] MEDS: LEVOTHYROXINE SODIUM 50 MCG TABLET PO SCH (06:35)
[2022-11-05] MEDS: OXYBUTYNIN CHLORIDE 5 MG TABLET PO SCH ×2 (08:39→16:35)
[2022-11-05] MEDS: AmLODIPine BESYLATE 5 MG TABLET PO SCH (08:39)
[2022-11-05] MEDS: THIAMINE 100 MG TABLET PO SCH ×2 (08:39→16:30)
[2022-11-05] MEDS: MULTIVITAMINS WITH MINERALS, THERAPEUTIC TABLET PO SCH (08:39)
[2022-11-05] MEDS: NALTREXONE HCL 50 MG TABLET PO SCH (08:39)
[2022-11-05] MEDS: OMEPRAZOLE 20 MG CAPSULE PO SCH (08:39)
[2022-11-05] MEDS: FOLIC ACID 1 MG TABLET PO SCH (08:39)
[2022-11-05] MEDS: OMEGA-3/DHA/EPA/FISH OIL 1,000 MG CAPSULE PO SCH (08:40)
[2022-11-05] MEDS: SERTRALINE HCL 100 MG TABLET PO SCH (08:40)
[2022-11-05 08:53] VITALS: BP 106/71
[2022-11-05] MEDS ORDERED: NALT50TA PO (16:32)
[2022-11-05] MEDS ORDERED: DIVA500T69 PO (16:32)
[2022-11-05] MEDS ORDERED: MELA5TAB40 PO (16:32)
[2022-11-05] MEDS ORDERED: OMEG-135 PO (16:32)
[2022-11-05] MEDS ORDERED: CLOZ100T11 PO (16:32)
[2022-11-05] MEDS ORDERED: SERT-440 PO (16:32)
[2022-11-05] MEDS ORDERED: TRAZ-283 PO (16:32)
[2022-11-05 20:42] VITALS: BP 101/65
[2022-11-05] MEDS: MELATONIN 5 MG TABLET PO SCH (20:52)
[2022-11-05] MEDS: DIVALPROEX SODIUM 500 MG ER TABLET PO SCH (20:53)
[2022-11-05] MEDS: CloZAPine 100 MG TABLET PO SCH (20:53)
[2022-11-05] MEDS: TraZODone HCL 150 MG TABLET PO SCH (20:53)
[2022-11-06] MEDS: FERROUS SULFATE 325 MG EC TABLET PO SCH (06:45)
[2022-11-06] MEDS: LEVOTHYROXINE SODIUM 50 MCG TABLET PO SCH (06:45)
[2022-11-06] MEDS ORDERED: OMEP20 PO (07:42)
[2022-11-06] MEDS ORDERED: AMLO-257 PO (07:42)
[2022-11-06] MEDS ORDERED: FERR325T27 PO (07:43)
[2022-11-06] MEDS: THIAMINE 100 MG TABLET PO SCH (08:19)
[2022-11-06] MEDS: NALTREXONE HCL 50 MG TABLET PO SCH (08:19)
[2022-11-06] MEDS: MULTIVITAMINS WITH MINERALS, THERAPEUTIC TABLET PO SCH (08:19)
[2022-11-06] MEDS: OXYBUTYNIN CHLORIDE 5 MG TABLET PO SCH (08:19)
[2022-11-06] MEDS: OMEGA-3/DHA/EPA/FISH OIL 1,000 MG CAPSULE PO SCH (08:19)
[2022-11-06] MEDS: OMEPRAZOLE 20 MG CAPSULE PO SCH (08:19)
[2022-11-06] MEDS: FOLIC ACID 1 MG TABLET PO SCH (08:19)
[2022-11-06] MEDS: SERTRALINE HCL 100 MG TABLET PO SCH (08:19)
[2022-11-06 08:30] VITALS: BP 107/62
[2022-11-06] MEDS: AmLODIPine BESYLATE 5 MG TABLET PO SCH (09:00)
== END 2022-11-06 15:00 | disposition home or self-care (01) | DRG 750 ==
LOC: EMS 13:25 → B2S 11-02 07:19
PROVIDERS: ADMIT Psychiatry & Neurology Psychiatry; ATTEND Psychiatry & Neurology Psychiatry
DX: F25.1 Schizoaffective disorder, depressive type (principal); D69.6 Thrombocytopenia, unspecified; R45.851 Suicidal ideations; E03.9 Hypothyroidism, unspecified; F17.210 Nicotine dependence, cigarettes, uncomplicated; F31.9 Bipolar disorder, unspecified; G40.409 Other generalized epilepsy and epileptic syndromes, not intractable, without status epilepticus; I10 Essential (primary) hypertension; K21.9 Gastro-esophageal reflux disease without esophagitis; R32 Unspecified urinary incontinence; F41.9 Anxiety disorder, unspecified; J44.9 Chronic obstructive pulmonary disease, unspecified; G89.29 Other chronic pain; Z55.9 Problems related to education and literacy, unspecified; Z59.9 Problem related to housing and economic circumstances, unspecified; Z63.9 Problem related to primary support group, unspecified; Z65.3 Problems related to other legal circumstances; Z86.16 Personal history of COVID-19; Z87.440 Personal history of urinary (tract) infections; Z91.51 Personal history of suicidal behavior; Z91.011 Allergy to milk products; Z91.018 Allergy to other foods
CPT/HCPCS: 80053; 80159; 80164; 80307; 81001; 84439; 84443; 84703; 85025; 86803; 87081; 87340; 99285; G0480; Q9967

== ENCOUNTER 2022-11-13 17:41 | Emergency (ER) | payer MEDICAID, OTHER ==
[~2022-11-13] VITALS: Ht 167.6 cm; Wt 73.1 kg
[~2022-11-13 17:41] MED LIST changes: +AMLO-257 PO; +DIVA500T69 PO; +FERR325T27 PO; +OMEP20 PO; -OMEP20CA12 PO; -SERT-162 PO; -SERT-439 PO; +SERT-440 PO; +TRAZ-283 PO
[2022-11-13] MEDS ORDERED: IBUPROFEN 600 MG TABLET PO ONE (18:45)
[2022-11-13] MEDS ORDERED: ACETAMINOPHEN 500 MG TABLET PO ONE (18:45)
[2022-11-13 18:59] VITALS: BP 142/90
[2022-11-13] MEDS ORDERED: IBUP-1554 PO (20:33)
[2022-11-13] MEDS ORDERED: ACET-66 PO (20:33)
== END 2022-11-13 22:16 | disposition still patient (30) ==
LOC: EMS 17:41
DX: S92.302A Fracture of unspecified metatarsal bone(s), left foot, initial encounter for closed fracture (principal); F25.9 Schizoaffective disorder, unspecified; F41.9 Anxiety disorder, unspecified; F31.9 Bipolar disorder, unspecified; K21.9 Gastro-esophageal reflux disease without esophagitis; Z91.011 Allergy to milk products; X58.XXXA Exposure to other specified factors, initial encounter; Y93.89 Activity, other specified; Y92.89 Other specified places as the place of occurrence of the external cause; Y99.8 Other external cause status
CPT/HCPCS: 99283

== ENCOUNTER 2022-12-06 18:44 | Emergency (ER) | payer MEDICAID, OTHER ==
[~2022-12-06 18:44] MED LIST changes: +ACET-66 PO; -CLOZ100T68 PO; -DIVA500T53 PO; +IBUP-1554 PO; -NALT50TA6 PO; -TRAZ150T80 PO
[2022-12-06 19:52] LABS: BASOPHILS % (AUTO) 0.8 % (0.0-2.0); EOSINOPHILS % (AUTO) 2.4 % (1.0-6.0); HEMATOCRIT 35.2 % (36-46); LYMPHOCYTES # (AUTO) 2.5 K/uL (1.0-4.8); LYMPHOCYTES % (AUTO) 42.5 % (22.0-44.0); MEAN CORPUSCULAR HEMOGLOBIN 31.3 pg (26.0-34.0); MEAN CORPUSCULAR HGB CONC 34.1 G/dL (31.0-37.0); MEAN CORPUSCULAR VOLUME 92 fL (80-100); MONOCYTES # (AUTO) 0.8 K/uL (0.1-1.0); MONOCYTES % (AUTO) 13.2 % (2.0-9.0); NEUTROPHILS # (AUTO) 2.5 K/uL (1.8-7.7); NEUTROPHILS % (AUTO) 41.1 % (40.0-70.0); PLATELET COUNT (AUTO) 116 K/uL (150-450); RED BLOOD CELL COUNT(AUTO) 3.84 MIL/uL (4.00-5.20); RED CELL DISTRIBUTION WIDTH 14.1 % (11.5-14.5)
[2022-12-06 19:59] LABS: ANION GAP 5 mmol/L (8-16); CARBON DIOXIDE 27 mmol/L (22-29); CHLORIDE 103 mmol/L (98-107); CREATININE 1.03 mg/dL (0.60-1.30); GLOMERULAR FILTR. RATE CALC 59 mL/min (>60); GLUCOSE,RANDOM 104 mg/dL (70-110); POTASSIUM 3.6 mmol/L (3.5-5.1); SODIUM SERUM 135 mmol/L (136-145); UREA NITROGEN, BLOOD 11 mg/dL (7-18)
[2022-12-06 20:05] LABS: ALANINE AMINOTRANSFERASE 13 U/L (12-78); ALBUMIN 3.3 g/dL (3.4-5.0); ALKALINE PHOSPHATASE 44 U/L (46-116); ASPARTATE AMINOTRANSFERASE 9 U/L (15-37); BILIRUBIN,TOTAL 0.2 mg/dL (0.1-1.0); TOTAL PROTEIN, SERUM 6.6 g/dL (6.4-8.2)
[2022-12-06] MEDS ORDERED: LORazepam 2 MG/ML VIAL IM ONE (21:00)
== END 2022-12-06 22:39 | disposition home or self-care (01) ==
LOC: EMS 18:44
DX: F69 Unspecified disorder of adult personality and behavior (principal); F25.1 Schizoaffective disorder, depressive type; F41.9 Anxiety disorder, unspecified; Z98.890 Other specified postprocedural states; Z91.011 Allergy to milk products; Z91.018 Allergy to other foods
CPT/HCPCS: 99284; 80053; 85025; 36415; 96372; G0480; J2060

== ENCOUNTER 2022-12-22 10:13 | Emergency (ER) | payer OTHER ==
[~2022-12-22] VITALS: Ht 167.6 cm; Wt 136.4 kg
[2022-12-22 10:44] LABS: AMPHET/METH SCREEN,URINE NEGATIVE (NEGATIVE); BARBITURATE SCREEN, URINE NEGATIVE (NEGATIVE); BENZODIAZEPINES SCREEN,URINE POSITIVE (NEGATIVE); CANNABINOID SCREEN,URINE NEGATIVE (NEGATIVE); COCAINE SCREEN,URINE NEGATIVE (NEGATIVE); METHADONE SCREEN, URINE NEGATIVE (NEGATIVE); OPIATE SCREEN,URINE NEGATIVE (NEGATIVE); PHENCYCLIDINE SCREEN,URINE NEGATIVE (NEGATIVE)
[2022-12-22 11:10] LABS: BASOPHILS % (AUTO) 0.8 % (0.0-2.0); EOSINOPHILS % (AUTO) 1.6 % (1.0-6.0); HEMATOCRIT 34.5 % (36-46); HEMOGLOBIN 11.7 g/dL (12.0-16.0); LYMPHOCYTES # (AUTO) 2.2 K/uL (1.0-4.8); LYMPHOCYTES % (AUTO) 42.4 % (22.0-44.0); MEAN CORPUSCULAR HEMOGLOBIN 31.1 pg (26.0-34.0); MEAN CORPUSCULAR HGB CONC 33.8 G/dL (31.0-37.0); MEAN CORPUSCULAR VOLUME 92 fL (80-100); MONOCYTES # (AUTO) 0.6 K/uL (0.1-1.0); MONOCYTES % (AUTO) 11.8 % (2.0-9.0); NEUTROPHILS # (AUTO) 2.2 K/uL (1.8-7.7); NEUTROPHILS % (AUTO) 43.4 % (40.0-70.0); PLATELET COUNT (AUTO) 94 K/uL (150-450); RED BLOOD CELL COUNT(AUTO) 3.75 MIL/uL (4.00-5.20); RED CELL DISTRIBUTION WIDTH 14.5 % (11.5-14.5)
[2022-12-22 11:14] LABS: ANION GAP 4 mmol/L (8-16); CALCIUM, TOTAL 9.3 mg/dL (8.8-10.5); CARBON DIOXIDE 30 mmol/L (22-29); CHLORIDE 103 mmol/L (98-107); CREATININE 0.91 mg/dL (0.60-1.30); GLOMERULAR FILTR. RATE CALC > 60 mL/min (>60); GLUCOSE,RANDOM 82 mg/dL (70-110); POTASSIUM 3.8 mmol/L (3.5-5.1); SODIUM SERUM 137 mmol/L (136-145); UREA NITROGEN, BLOOD 12 mg/dL (7-18)
[2022-12-22 11:20] LABS: ALANINE AMINOTRANSFERASE 12 U/L (12-78); ALBUMIN 3.2 g/dL (3.4-5.0); ALKALINE PHOSPHATASE 40 U/L (46-116); ASPARTATE AMINOTRANSFERASE 9 U/L (15-37); BILIRUBIN,TOTAL 0.2 mg/dL (0.1-1.0); TOTAL PROTEIN, SERUM 6.4 g/dL (6.4-8.2); VALPROIC ACID 97 mcg/mL (50-100)
[2022-12-22 12:02] VITALS: BP 110/72
== END 2022-12-22 12:50 | disposition home or self-care (01) ==
LOC: EMS 10:16
DX: F20.9 Schizophrenia, unspecified (principal); D64.9 Anemia, unspecified; D69.6 Thrombocytopenia, unspecified; F41.9 Anxiety disorder, unspecified; F31.9 Bipolar disorder, unspecified; Z98.890 Other specified postprocedural states; Z91.011 Allergy to milk products; Z91.018 Allergy to other foods
CPT/HCPCS: 99284; 80053; 80164; 85025; 36415; 80307 ×2; G0480

== ENCOUNTER 2023-01-16 19:00 | Inpatient (IN) | payer MEDICAID, OTHER ==
[~2023-01-16] VITALS: Ht 167.6 cm; Wt 69.4 kg
[2023-01-16 19:54] LABS: BASOPHILS % (AUTO) 0.6 % (0.0-2.0); EOSINOPHILS % (AUTO) 1.4 % (1.0-6.0); HEMATOCRIT 33.2 % (36-46); LYMPHOCYTES # (AUTO) 2.3 K/uL (1.0-4.8); LYMPHOCYTES % (AUTO) 38.5 % (22.0-44.0); MEAN CORPUSCULAR HEMOGLOBIN 31.4 pg (26.0-34.0); MEAN CORPUSCULAR HGB CONC 33.2 G/dL (31.0-37.0); MEAN CORPUSCULAR VOLUME 95 fL (80-100); MONOCYTES # (AUTO) 0.6 K/uL (0.1-1.0); MONOCYTES % (AUTO) 10.7 % (2.0-9.0); NEUTROPHILS # (AUTO) 2.9 K/uL (1.8-7.7); NEUTROPHILS % (AUTO) 48.8 % (40.0-70.0); PLATELET COUNT (AUTO) 133 K/uL (150-450); RED BLOOD CELL COUNT(AUTO) 3.51 MIL/uL (4.00-5.20); RED CELL DISTRIBUTION WIDTH 15.7 % (11.5-14.5)
[2023-01-16 20:06] LABS: ANION GAP 6 mmol/L (8-16); CALCIUM, TOTAL 8.8 mg/dL (8.8-10.5); CARBON DIOXIDE 28 mmol/L (22-29); CHLORIDE 107 mmol/L (98-107); CREATININE 0.91 mg/dL (0.60-1.30); GLOMERULAR FILTR. RATE CALC > 60 mL/min (>60); GLUCOSE,RANDOM 113 mg/dL (70-110); POTASSIUM 4.3 mmol/L (3.5-5.1); SODIUM SERUM 141 mmol/L (136-145); UREA NITROGEN, BLOOD 15 mg/dL (7-18)
[2023-01-16 20:08] LABS: COVID AG,FIA SOURCE NASAL SWAB
[2023-01-16 20:11] LABS: ALANINE AMINOTRANSFERASE 14 U/L (12-78); ALKALINE PHOSPHATASE 42 U/L (46-116); ASPARTATE AMINOTRANSFERASE 8 U/L (15-37); BILIRUBIN,TOTAL 0.2 mg/dL (0.1-1.0); TOTAL PROTEIN, SERUM 6.2 g/dL (6.4-8.2)
[2023-01-16] MEDS ORDERED: CloZAPine 100 MG TABLET PO ONE (20:45)
[2023-01-16] MEDS ORDERED: DIVALPROEX SODIUM 500 MG ER TABLET PO ONE (20:45)
[2023-01-16 23:04] LABS: APPEARANCE,URINE HAZY (CLEAR); BILIRUBIN,URINE NEGATIVE (NEGATIVE); GLUCOSE, URINE (UA) NEGATIVE (NEGATIVE); KETONES,URINE NEGATIVE (NEGATIVE); LEUKOCYTE ESTERASE ,URINE TRACE (NEGATIVE); NITRATE,URINE NEGATIVE (NEGATIVE); OCCULT BLOOD,URINE LARGE (NEGATIVE); PH,URINE 5.5 (5.0-8.0); PROTEIN,URINE NEGATIVE (NEGATIVE); SPECIFIC GRAVITIY, URINE 1.009 (1.003-1.030); UROBILINOGEN,URINE <=1.0 mg/dL (<=1.0)
[2023-01-16 23:10] LABS: AMPHET/METH SCREEN,URINE NEGATIVE (NEGATIVE); BARBITURATE SCREEN, URINE NEGATIVE (NEGATIVE); BENZODIAZEPINES SCREEN,URINE NEGATIVE (NEGATIVE); CANNABINOID SCREEN,URINE NEGATIVE (NEGATIVE); COCAINE SCREEN,URINE NEGATIVE (NEGATIVE); METHADONE SCREEN, URINE NEGATIVE (NEGATIVE); OPIATE SCREEN,URINE NEGATIVE (NEGATIVE); PHENCYCLIDINE SCREEN,URINE NEGATIVE (NEGATIVE)
[2023-01-16 23:14] LABS: RBC,URINE 0-2 /HPF (0-2)
[2023-01-16 23:15] LABS: BACTERIA,URINE None Seen /HPF (None Seen); SQUAMOUS EPITHELIAL CELL,UR Many /LPF (None Seen); WBC,URINE 0-2 /HPF (0-5)
[2023-01-17 04:04] VITALS: BP 97/65
[2023-01-17 08:51] VITALS: BP 102/64
[2023-01-17] MEDS ORDERED: OMEPRAZOLE 20 MG CAPSULE PO PRN (09:30)
[2023-01-17] MEDS ORDERED: ACETAMINOPHEN 325 MG TABLET PO PRN (09:30)
[2023-01-17] MEDS ORDERED: MAGNESIUM HYDROXIDE SUSPENSION 30 ML UDCUP PO PRN (09:30)
[2023-01-17] MEDS ORDERED: MAG HYDROX/AL HYDROX/SIMETH ES 30 ML SUSPENSION UDCUP PO PRN (09:30)
[2023-01-17] MEDS ORDERED: ALBUTEROL SULFATE HFA 90 MCG/PUFF 8 GM INHALER IH PRN (09:30)
[2023-01-17] MEDS ORDERED: IBUPROFEN 600 MG TABLET PO PRN (09:30)
[2023-01-17] MEDS ORDERED: PETROLATUM,WHITE 28 GM JELLY TP PRN (09:30)
[2023-01-17] MEDS ORDERED: CloNIDine HCL 0.1 MG TABLET PO PRN (09:30)
[2023-01-17] MEDS ORDERED: DOCUSATE SODIUM 100 MG CAPSULE PO PRN (09:30)
[2023-01-17] MEDS ORDERED: BACITRACIN 28 GM OINTMENT TP PRN (09:30)
[2023-01-17] MEDS ORDERED: ONDANSETRON HCL 4 MG TABLET PO PRN (09:30)
[2023-01-17] MEDS: OMEGA-3/DHA/EPA/FISH OIL 1,000 MG CAPSULE PO SCH (10:19)
[2023-01-17] MEDS: OXYBUTYNIN CHLORIDE 5 MG TABLET PO SCH ×2 (10:19→16:19)
[2023-01-17] MEDS: AmLODIPine BESYLATE 5 MG TABLET PO SCH (10:19)
[2023-01-17 20:43] VITALS: BP 106/63
[2023-01-17] MEDS: LORazepam 2 MG TABLET PO PRN (21:23)
[2023-01-17] MEDS: ZOLPIDEM TARTRATE 10 MG TABLET PO PRN (21:23)
[2023-01-18] MEDS: LEVOTHYROXINE SODIUM 50 MCG TABLET PO SCH (06:35)
[2023-01-18] MEDS: FERROUS SULFATE 325 MG EC TABLET PO SCH (06:37)
[2023-01-18] MEDS: LOPERAMIDE HCL 2 MG CAPSULE PO PRN (08:11)
[2023-01-18] MEDS: OMEGA-3/DHA/EPA/FISH OIL 1,000 MG CAPSULE PO SCH (08:11)
[2023-01-18] MEDS: AmLODIPine BESYLATE 5 MG TABLET PO SCH (08:11)
[2023-01-18] MEDS: OXYBUTYNIN CHLORIDE 5 MG TABLET PO SCH ×2 (08:11→16:30)
[2023-01-18 20:07] VITALS: BP 128/78
[2023-01-18] MEDS: LORazepam 2 MG TABLET PO PRN (20:15)
[2023-01-18] MEDS: ZOLPIDEM TARTRATE 10 MG TABLET PO PRN (21:59)
[2023-01-19] MEDS: FERROUS SULFATE 325 MG EC TABLET PO SCH (06:32)
[2023-01-19] MEDS: LEVOTHYROXINE SODIUM 50 MCG TABLET PO SCH (06:51)
[2023-01-19] MEDS: LORazepam 2 MG TABLET PO PRN ×3 (07:21→16:16)
[2023-01-19] MEDS: OMEGA-3/DHA/EPA/FISH OIL 1,000 MG CAPSULE PO SCH (08:29)
[2023-01-19] MEDS: AmLODIPine BESYLATE 5 MG TABLET PO SCH (08:30)
[2023-01-19] MEDS: OXYBUTYNIN CHLORIDE 5 MG TABLET PO SCH ×2 (08:30→16:16)
[2023-01-19 09:26] VITALS: BP 126/72
[2023-01-19] MEDS: HALOPERIDOL 5 MG TABLET PO PRN ×2 (11:30→16:16)
[2023-01-19] MEDS: CloZAPine 100 MG TABLET PO SCH (20:05)
[2023-01-19] MEDS: DIVALPROEX SODIUM 500 MG DR TABLET PO SCH (20:05)
[2023-01-19] MEDS: ZOLPIDEM TARTRATE 10 MG TABLET PO PRN (20:16)
[2023-01-19 20:17] VITALS: BP 109/61
[2023-01-20] MEDS: FERROUS SULFATE 325 MG EC TABLET PO SCH (06:23)
[2023-01-20] MEDS: LEVOTHYROXINE SODIUM 50 MCG TABLET PO SCH (06:23)
[2023-01-20 08:24] VITALS: BP 100/65
[2023-01-20] MEDS: CloZAPine 100 MG TABLET PO SCH ×2 (08:38→20:21)
[2023-01-20] MEDS: OMEGA-3/DHA/EPA/FISH OIL 1,000 MG CAPSULE PO SCH (08:38)
[2023-01-20] MEDS: OXYBUTYNIN CHLORIDE 5 MG TABLET PO SCH ×2 (08:38→16:03)
[2023-01-20] MEDS: DIVALPROEX SODIUM 500 MG DR TABLET PO SCH ×2 (08:38→20:20)
[2023-01-20] MEDS: AmLODIPine BESYLATE 5 MG TABLET PO SCH (08:48)
[2023-01-20] MEDS: MIDODRINE HCL 5 MG TABLET PO SCH (16:03)
[2023-01-20] MEDS: HALOPERIDOL 5 MG TABLET PO PRN (16:03)
[2023-01-20 20:03] VITALS: BP 106/63
[2023-01-20] MEDS: ZOLPIDEM TARTRATE 10 MG TABLET PO PRN (20:21)
[2023-01-21] MEDS: LEVOTHYROXINE SODIUM 50 MCG TABLET PO SCH (06:48)
[2023-01-21] MEDS: FERROUS SULFATE 325 MG EC TABLET PO SCH (06:48)
[2023-01-21] MEDS: OMEGA-3/DHA/EPA/FISH OIL 1,000 MG CAPSULE PO SCH (08:01)
[2023-01-21] MEDS: MIDODRINE HCL 5 MG TABLET PO SCH ×2 (08:02→16:17)
[2023-01-21] MEDS: DIVALPROEX SODIUM 500 MG DR TABLET PO SCH ×2 (08:02→21:04)
[2023-01-21] MEDS: OXYBUTYNIN CHLORIDE 5 MG TABLET PO SCH ×2 (08:02→16:17)
[2023-01-21] MEDS: CloZAPine 100 MG TABLET PO SCH ×2 (08:02→21:03)
[2023-01-21] MEDS: AmLODIPine BESYLATE 5 MG TABLET PO SCH (08:02)
[2023-01-21 08:11] VITALS: BP 94/50
[2023-01-21 20:05] VITALS: BP 108/64
[2023-01-21 21:52] VITALS: BP 104/73
[2023-01-21] MEDS: HALOPERIDOL 5 MG TABLET PO PRN (21:53)
[2023-01-22] MEDS: FERROUS SULFATE 325 MG EC TABLET PO SCH (06:49)
[2023-01-22] MEDS: LEVOTHYROXINE SODIUM 50 MCG TABLET PO SCH (06:53)
[2023-01-22 08:03] VITALS: BP 130/66
[2023-01-22] MEDS: OXYBUTYNIN CHLORIDE 5 MG TABLET PO SCH ×2 (08:19→16:18)
[2023-01-22] MEDS: CloZAPine 100 MG TABLET PO SCH ×2 (08:19→20:31)
[2023-01-22] MEDS: AmLODIPine BESYLATE 5 MG TABLET PO SCH (08:19)
[2023-01-22] MEDS: DIVALPROEX SODIUM 500 MG DR TABLET PO SCH ×2 (08:19→20:31)
[2023-01-22] MEDS: OMEGA-3/DHA/EPA/FISH OIL 1,000 MG CAPSULE PO SCH (08:19)
[2023-01-22] MEDS: MIDODRINE HCL 5 MG TABLET PO SCH ×2 (08:20→16:18)
[2023-01-22 20:00] VITALS: BP 109/69
[2023-01-23] MEDS: LEVOTHYROXINE SODIUM 50 MCG TABLET PO SCH (06:29)
[2023-01-23] MEDS: FERROUS SULFATE 325 MG EC TABLET PO SCH (06:46)
[2023-01-23 08:30] VITALS: BP 110/68
[2023-01-23] MEDS: MIDODRINE HCL 5 MG TABLET PO SCH ×2 (08:30→16:43)
[2023-01-23] MEDS: CloZAPine 100 MG TABLET PO SCH ×2 (08:30→20:35)
[2023-01-23] MEDS: OMEGA-3/DHA/EPA/FISH OIL 1,000 MG CAPSULE PO SCH (08:30)
[2023-01-23] MEDS: DIVALPROEX SODIUM 500 MG DR TABLET PO SCH ×2 (08:30→20:35)
[2023-01-23] MEDS: OXYBUTYNIN CHLORIDE 5 MG TABLET PO SCH ×2 (08:30→16:43)
[2023-01-23] MEDS: AmLODIPine BESYLATE 5 MG TABLET PO SCH (08:30)
[2023-01-23 17:01] VITALS: BP 98/68
[2023-01-23 21:02] VITALS: BP 104/72
[2023-01-24] MEDS: LEVOTHYROXINE SODIUM 50 MCG TABLET PO SCH (06:36)
[2023-01-24] MEDS: FERROUS SULFATE 325 MG EC TABLET PO SCH (06:36)
[2023-01-24 07:17] LABS: BASOPHILS % (AUTO) 0.8 % (0.0-2.0); EOSINOPHILS % (AUTO) 2.1 % (1.0-6.0); HEMATOCRIT 36.2 % (36-46); HEMOGLOBIN 12.3 g/dL (12.0-16.0); LYMPHOCYTES # (AUTO) 4.1 K/uL (1.0-4.8); LYMPHOCYTES % (AUTO) 46.3 % (22.0-44.0); MEAN CORPUSCULAR HEMOGLOBIN 32.1 pg (26.0-34.0); MEAN CORPUSCULAR HGB CONC 34.1 G/dL (31.0-37.0); MEAN CORPUSCULAR VOLUME 94 fL (80-100); MONOCYTES % (AUTO) 11.3 % (2.0-9.0); NEUTROPHILS # (AUTO) 3.5 K/uL (1.8-7.7); NEUTROPHILS % (AUTO) 39.5 % (40.0-70.0); PLATELET COUNT (AUTO) 206 K/uL (150-450); RED BLOOD CELL COUNT(AUTO) 3.84 MIL/uL (4.00-5.20); RED CELL DISTRIBUTION WIDTH 15.1 % (11.5-14.5)
[2023-01-24] MEDS: DIVALPROEX SODIUM 500 MG DR TABLET PO SCH ×2 (08:03→20:39)
[2023-01-24] MEDS: CloZAPine 100 MG TABLET PO SCH ×2 (08:03→20:40)
[2023-01-24] MEDS: MIDODRINE HCL 5 MG TABLET PO SCH ×2 (08:03→15:59)
[2023-01-24] MEDS: OMEGA-3/DHA/EPA/FISH OIL 1,000 MG CAPSULE PO SCH (08:03)
[2023-01-24] MEDS: OXYBUTYNIN CHLORIDE 5 MG TABLET PO SCH ×2 (08:04→15:59)
[2023-01-24] MEDS: AmLODIPine BESYLATE 5 MG TABLET PO SCH (08:04)
[2023-01-24] MEDS: LOPERAMIDE HCL 2 MG CAPSULE PO PRN (08:04)
[2023-01-24 08:47] VITALS: BP 109/73
[2023-01-24] MEDS ORDERED: CLOZ100T11 PO ×2 (11:57)
[2023-01-24] MEDS ORDERED: DIVA-112 PO (11:58)
[2023-01-24 20:00] VITALS: BP 97/72
[2023-01-25] MEDS: FERROUS SULFATE 325 MG EC TABLET PO SCH (06:30)
[2023-01-25] MEDS: LEVOTHYROXINE SODIUM 50 MCG TABLET PO SCH (06:30)
[2023-01-25] MEDS ORDERED: MIDO5TAB29 PO (07:56)
[2023-01-25] MEDS ORDERED: AMLO-257 PO (07:57)
[2023-01-25] MEDS: CloZAPine 100 MG TABLET PO SCH (08:08)
[2023-01-25] MEDS: OMEGA-3/DHA/EPA/FISH OIL 1,000 MG CAPSULE PO SCH (08:10)
[2023-01-25] MEDS: DIVALPROEX SODIUM 500 MG DR TABLET PO SCH (08:10)
[2023-01-25] MEDS: OXYBUTYNIN CHLORIDE 5 MG TABLET PO SCH (08:10)
[2023-01-25] MEDS: AmLODIPine BESYLATE 5 MG TABLET PO SCH (08:11)
[2023-01-25] MEDS: MIDODRINE HCL 5 MG TABLET PO SCH (08:11)
[2023-01-25 08:13] VITALS: BP 100/66
== END 2023-01-25 12:16 | disposition home or self-care (01) | DRG 750 ==
LOC: EMS 19:00 → B3A 01-17 01:27
PROVIDERS: ADMIT Psychiatry & Neurology Psychiatry; ATTEND Psychiatry & Neurology Psychiatry
DX: F25.1 Schizoaffective disorder, depressive type (principal); G40.909 Epilepsy, unspecified, not intractable, without status epilepticus; R45.851 Suicidal ideations; E03.9 Hypothyroidism, unspecified; E55.9 Vitamin D deficiency, unspecified; F41.9 Anxiety disorder, unspecified; Z20.822 Contact with and (suspected) exposure to COVID-19; F45.9 Somatoform disorder, unspecified; G47.00 Insomnia, unspecified; I10 Essential (primary) hypertension; K21.9 Gastro-esophageal reflux disease without esophagitis; K59.00 Constipation, unspecified; N32.81 Overactive bladder; Z86.16 Personal history of COVID-19
CPT/HCPCS: 80053; 80307; 81001; 84703; 85025; 99285; G0480

== ENCOUNTER 2023-01-31 21:19 | Inpatient (IN) | payer MEDICAID, OTHER ==
[~2023-01-31] VITALS: Ht 167.6 cm; Wt 70.8 kg
[~2023-01-31 21:19] MED LIST changes: -ACET-66 PO; +DIVA-112 PO; -DIVA500T69 PO; -IBUP-1554 PO; -MELA5TAB40 PO; +MIDO5TAB29 PO; -NALT50TA PO; -OMEG-135 PO; -OMEP20 PO; -SERT-440 PO; -TRAZ-283 PO
[2023-01-31 23:14] LABS: BASOPHILS % (AUTO) 0.6 % (0.0-2.0); EOSINOPHILS % (AUTO) 0.7 % (1.0-6.0); HEMOGLOBIN 11.9 g/dL (12.0-16.0); LYMPHOCYTES # (AUTO) 3.5 K/uL (1.0-4.8); LYMPHOCYTES % (AUTO) 34.3 % (22.0-44.0); MEAN CORPUSCULAR HEMOGLOBIN 31.9 pg (26.0-34.0); MEAN CORPUSCULAR HGB CONC 33.9 G/dL (31.0-37.0); MEAN CORPUSCULAR VOLUME 94 fL (80-100); MONOCYTES # (AUTO) 1.2 K/uL (0.1-1.0); MONOCYTES % (AUTO) 11.7 % (2.0-9.0); NEUTROPHILS # (AUTO) 5.3 K/uL (1.8-7.7); NEUTROPHILS % (AUTO) 52.7 % (40.0-70.0); PLATELET COUNT (AUTO) 212 K/uL (150-450); RED BLOOD CELL COUNT(AUTO) 3.73 MIL/uL (4.00-5.20); RED CELL DISTRIBUTION WIDTH 15.4 % (11.5-14.5)
[2023-01-31 23:23] LABS: ANION GAP 7 mmol/L (8-16); CALCIUM, TOTAL 9.1 mg/dL (8.8-10.5); CARBON DIOXIDE 27 mmol/L (22-29); CHLORIDE 106 mmol/L (98-107); CREATININE 0.71 mg/dL (0.60-1.30); GLOMERULAR FILTR. RATE CALC > 60 mL/min (>60); GLUCOSE,RANDOM 106 mg/dL (70-110); POTASSIUM 3.9 mmol/L (3.5-5.1); SODIUM SERUM 140 mmol/L (136-145)
[2023-01-31] MEDS ORDERED: LORazepam 1 MG TABLET PO ONE (23:30)
[2023-01-31] MEDS ORDERED: HALOPERIDOL 5 MG TABLET PO ONE (23:30)
[2023-01-31 23:34] LABS: ALANINE AMINOTRANSFERASE 14 U/L (12-78); ALBUMIN 3.3 g/dL (3.4-5.0); ALKALINE PHOSPHATASE 46 U/L (46-116); ASPARTATE AMINOTRANSFERASE 5 U/L (15-37); BILIRUBIN,TOTAL 0.3 mg/dL (0.1-1.0); TOTAL PROTEIN, SERUM 6.7 g/dL (6.4-8.2)
[2023-02-01 00:02] LABS: HCG,QUANTITATIVE < 1 mIU/mL (0-6)
[2023-02-01 01:30] LABS: VALPROIC ACID 64 mcg/mL (50-100)
[2023-02-01 02:29] LABS: AMPHET/METH SCREEN,URINE NEGATIVE (NEGATIVE); BARBITURATE SCREEN, URINE NEGATIVE (NEGATIVE); BENZODIAZEPINES SCREEN,URINE NEGATIVE (NEGATIVE); CANNABINOID SCREEN,URINE NEGATIVE (NEGATIVE); COCAINE SCREEN,URINE NEGATIVE (NEGATIVE); METHADONE SCREEN, URINE NEGATIVE (NEGATIVE); OPIATE SCREEN,URINE NEGATIVE (NEGATIVE); PHENCYCLIDINE SCREEN,URINE NEGATIVE (NEGATIVE)
[2023-02-01] MEDS ORDERED: HALOPERIDOL 5 MG TABLET PO PRN (06:15)
[2023-02-01 15:49] VITALS: BP 136/89
[2023-02-01 18:41] LABS: GLUCOMETER DEV NAME(LOC) POC.BV
[2023-02-01] MEDS: ZOLPIDEM TARTRATE 10 MG TABLET PO PRN (20:34)
[2023-02-01 21:07] VITALS: BP 110/69
[2023-02-01] MEDS ORDERED: DOCUSATE SODIUM 100 MG CAPSULE PO PRN (23:15)
[2023-02-01] MEDS ORDERED: CloNIDine HCL 0.1 MG TABLET PO PRN (23:15)
[2023-02-01] MEDS ORDERED: MAG HYDROX/AL HYDROX/SIMETH ES 30 ML SUSPENSION UDCUP PO PRN (23:15)
[2023-02-01] MEDS ORDERED: OMEPRAZOLE 20 MG CAPSULE PO PRN (23:15)
[2023-02-01] MEDS ORDERED: BACITRACIN 28 GM OINTMENT TP PRN (23:15)
[2023-02-01] MEDS ORDERED: PETROLATUM,WHITE 28 GM JELLY TP PRN (23:15)
[2023-02-01] MEDS ORDERED: ACETAMINOPHEN 325 MG TABLET PO PRN (23:15)
[2023-02-01] MEDS ORDERED: IBUPROFEN 600 MG TABLET PO PRN (23:15)
[2023-02-01] MEDS ORDERED: LOPERAMIDE HCL 2 MG CAPSULE PO PRN (23:15)
[2023-02-01] MEDS ORDERED: ONDANSETRON HCL 4 MG TABLET PO PRN (23:15)
[2023-02-01] MEDS ORDERED: ALBUTEROL SULFATE HFA 90 MCG/PUFF 8 GM INHALER IH PRN (23:15)
[2023-02-01] MEDS ORDERED: MAGNESIUM HYDROXIDE SUSPENSION 30 ML UDCUP PO PRN (23:15)
[2023-02-01] MEDS: LORazepam 2 MG TABLET PO PRN (23:27)
[2023-02-02] MEDS: LEVOTHYROXINE SODIUM 50 MCG TABLET PO SCH (06:10)
[2023-02-02] MEDS: FERROUS SULFATE 325 MG EC TABLET PO SCH (06:12)
[2023-02-02 07:48] LABS: APPEARANCE,URINE CLEAR (CLEAR); BILIRUBIN,URINE NEGATIVE (NEGATIVE); GLUCOSE, URINE (UA) NEGATIVE (NEGATIVE); KETONES,URINE NEGATIVE (NEGATIVE); LEUKOCYTE ESTERASE ,URINE NEGATIVE (NEGATIVE); NITRATE,URINE NEGATIVE (NEGATIVE); OCCULT BLOOD,URINE NEGATIVE (NEGATIVE); PROTEIN,URINE NEGATIVE (NEGATIVE); SPECIFIC GRAVITIY, URINE 1.015 (1.003-1.030); UROBILINOGEN,URINE <=1.0 mg/dL (<=1.0)
[2023-02-02 08:04] LABS: AMPHET/METH SCREEN,URINE NEGATIVE (NEGATIVE); BARBITURATE SCREEN, URINE NEGATIVE (NEGATIVE); BENZODIAZEPINES SCREEN,URINE NEGATIVE (NEGATIVE); CANNABINOID SCREEN,URINE NEGATIVE (NEGATIVE); COCAINE SCREEN,URINE NEGATIVE (NEGATIVE); METHADONE SCREEN, URINE NEGATIVE (NEGATIVE); OPIATE SCREEN,URINE NEGATIVE (NEGATIVE); PHENCYCLIDINE SCREEN,URINE NEGATIVE (NEGATIVE)
[2023-02-02] MEDS: AmLODIPine BESYLATE 5 MG TABLET PO SCH (08:05)
[2023-02-02] MEDS: OXYBUTYNIN CHLORIDE 5 MG TABLET PO SCH ×2 (08:05→16:15)
[2023-02-02 08:15] VITALS: BP 115/78
[2023-02-02] MEDS: CloZAPine 100 MG TABLET PO SCH ×2 (09:51→20:31)
[2023-02-02] MEDS: DIVALPROEX SODIUM 500 MG DR TABLET PO SCH ×2 (09:51→20:31)
[2023-02-02 20:02] VITALS: BP 95/67
[2023-02-02] MEDS: ZOLPIDEM TARTRATE 10 MG TABLET PO PRN (21:44)
[2023-02-03] MEDS: LEVOTHYROXINE SODIUM 50 MCG TABLET PO SCH (06:27)
[2023-02-03] MEDS: FERROUS SULFATE 325 MG EC TABLET PO SCH (06:28)
[2023-02-03] MEDS: OXYBUTYNIN CHLORIDE 5 MG TABLET PO SCH ×2 (08:13→17:09)
[2023-02-03] MEDS: DIVALPROEX SODIUM 500 MG DR TABLET PO SCH ×2 (08:14→21:05)
[2023-02-03] MEDS: AmLODIPine BESYLATE 5 MG TABLET PO SCH (08:14)
[2023-02-03] MEDS: CloZAPine 100 MG TABLET PO SCH ×2 (08:14→21:05)
[2023-02-03 08:16] VITALS: BP 102/63
[2023-02-03 08:39] VITALS: BP 102/63
[2023-02-03] MEDS: LORazepam 2 MG TABLET PO PRN (13:58)
[2023-02-03 20:56] VITALS: BP 107/66
[2023-02-04] MEDS: LEVOTHYROXINE SODIUM 50 MCG TABLET PO SCH (06:30)
[2023-02-04] MEDS: FERROUS SULFATE 325 MG EC TABLET PO SCH (06:52)
[2023-02-04 08:13] VITALS: BP 100/65
[2023-02-04] MEDS: DIVALPROEX SODIUM 500 MG DR TABLET PO SCH ×2 (08:13→20:35)
[2023-02-04] MEDS: AmLODIPine BESYLATE 5 MG TABLET PO SCH (08:13)
[2023-02-04] MEDS: OXYBUTYNIN CHLORIDE 5 MG TABLET PO SCH ×2 (08:13→16:00)
[2023-02-04] MEDS: CloZAPine 100 MG TABLET PO SCH ×2 (08:13→20:35)
[2023-02-04 20:55] VITALS: BP 104/74
[2023-02-05] MEDS: LEVOTHYROXINE SODIUM 50 MCG TABLET PO SCH (06:34)
[2023-02-05] MEDS: FERROUS SULFATE 325 MG EC TABLET PO SCH (06:42)
[2023-02-05] MEDS: DIVALPROEX SODIUM 500 MG DR TABLET PO SCH (08:08)
[2023-02-05] MEDS: CloZAPine 100 MG TABLET PO SCH (08:08)
[2023-02-05] MEDS: OXYBUTYNIN CHLORIDE 5 MG TABLET PO SCH ×2 (08:08→16:04)
[2023-02-05] MEDS: AmLODIPine BESYLATE 5 MG TABLET PO SCH (08:08)
[2023-02-05 08:46] VITALS: BP 98/59
[2023-02-05 11:07] LABS: HEPATITIS C AB (EIA) Non Reactive (Non Reactive)
== END 2023-02-05 16:33 | disposition home or self-care (01) | DRG 750 ==
LOC: EMS 21:21 → B3A 02-01 09:43
PROVIDERS: ADMIT Psychiatry & Neurology Psychiatry; ATTEND Psychiatry & Neurology Psychiatry
DX: F25.1 Schizoaffective disorder, depressive type (principal); G40.909 Epilepsy, unspecified, not intractable, without status epilepticus; R45.851 Suicidal ideations; E03.9 Hypothyroidism, unspecified; F31.9 Bipolar disorder, unspecified; E55.9 Vitamin D deficiency, unspecified; F41.9 Anxiety disorder, unspecified; G47.00 Insomnia, unspecified; I10 Essential (primary) hypertension; K21.9 Gastro-esophageal reflux disease without esophagitis; N32.81 Overactive bladder; K59.00 Constipation, unspecified; Z20.822 Contact with and (suspected) exposure to COVID-19; Z91.011 Allergy to milk products; Z91.018 Allergy to other foods
CPT/HCPCS: 80053; 80164; 80307; 81003; 84702; 85025; 86803; 87081; 87340; G0480

== ENCOUNTER 2023-02-09 14:41 | Emergency (ER) | payer MEDICAID, OTHER ==
[~2023-02-09] VITALS: Ht 167.6 cm; Wt 93.2 kg
[~2023-02-09 14:41] MED LIST changes: -MIDO5TAB29 PO
[2023-02-09] MEDS ORDERED: IBUPROFEN 600 MG TABLET PO ONE (16:00)
[2023-02-09] MEDS ORDERED: TRAZ-257 PO (16:05)
[2023-02-09] MEDS ORDERED: OMEP20CA12 PO (16:05)
[2023-02-09] MEDS ORDERED: NALT50TA5 PO (16:05)
[2023-02-09] MEDS ORDERED: SERT-440 PO (16:05)
[2023-02-09] MEDS ORDERED: BENZ1TAB84 PO (16:05)
[2023-02-09] MEDS ORDERED: OMEG10005 PO (16:05)
[2023-02-09] MEDS ORDERED: PALI234D IM (16:05)
[2023-02-09] MEDS ORDERED: GABA-533 PO (16:05)
[2023-02-09 17:14] VITALS: BP 110/62
[2023-02-09] MEDS ORDERED: IBUP-1492 PO (17:25)
== END 2023-02-09 17:34 | disposition home or self-care (01) ==
LOC: EMS 15:03
DX: S92.901A Unspecified fracture of right foot, initial encounter for closed fracture (principal); F41.9 Anxiety disorder, unspecified; F31.9 Bipolar disorder, unspecified; F20.9 Schizophrenia, unspecified; K21.9 Gastro-esophageal reflux disease without esophagitis; Z86.16 Personal history of COVID-19; Z91.011 Allergy to milk products; X58.XXXA Exposure to other specified factors, initial encounter; Y93.01 Activity, walking, marching and hiking; Y92.89 Other specified places as the place of occurrence of the external cause; Y99.8 Other external cause status
CPT/HCPCS: 99283

== ENCOUNTER 2023-02-27 18:57 | Inpatient (IN) | payer MEDICAID, OTHER ==
[~2023-02-27] VITALS: Ht 167.6 cm; Wt 69.7 kg
[~2023-02-27 18:57] MED LIST changes: +BENZ1TAB84 PO; +GABA-533 PO; +IBUP-1492 PO; +NALT50TA5 PO; +OMEG10005 PO; +OMEP20CA12 PO; +PALI234D IM; +SERT-440 PO; +TRAZ-257 PO
[2023-02-27 21:06] LABS: BASOPHILS % (AUTO) 0.8 % (0.0-2.0); EOSINOPHILS % (AUTO) 1.1 % (1.0-6.0); HEMATOCRIT 35.4 % (36-46); LYMPHOCYTES % (AUTO) 43.4 % (22.0-44.0); MEAN CORPUSCULAR HEMOGLOBIN 32.2 pg (26.0-34.0); MEAN CORPUSCULAR HGB CONC 33.9 G/dL (31.0-37.0); MEAN CORPUSCULAR VOLUME 95 fL (80-100); MONOCYTES # (AUTO) 0.7 K/uL (0.1-1.0); MONOCYTES % (AUTO) 10.3 % (2.0-9.0); NEUTROPHILS # (AUTO) 3.1 K/uL (1.8-7.7); NEUTROPHILS % (AUTO) 44.4 % (40.0-70.0); PLATELET COUNT (AUTO) 153 K/uL (150-450); RED BLOOD CELL COUNT(AUTO) 3.73 MIL/uL (4.00-5.20); RED CELL DISTRIBUTION WIDTH 13.7 % (11.5-14.5)
[2023-02-27] MEDS ORDERED: LORazepam 2 MG TABLET PO ONE (21:15)
[2023-02-27] MEDS ORDERED: HALOPERIDOL 5 MG TABLET PO ONE (21:15)
[2023-02-27 21:16] LABS: ANION GAP 4 mmol/L (8-16); CALCIUM, TOTAL 8.8 mg/dL (8.8-10.5); CARBON DIOXIDE 28 mmol/L (22-29); CHLORIDE 104 mmol/L (98-107); CREATININE 0.79 mg/dL (0.60-1.30); GLOMERULAR FILTR. RATE CALC > 60 mL/min (>60); GLUCOSE,RANDOM 97 mg/dL (70-110); POTASSIUM 3.7 mmol/L (3.5-5.1); SODIUM SERUM 136 mmol/L (136-145)
[2023-02-27 21:18] LABS: COVID AG,FIA SOURCE NASAL SWAB
[2023-02-27 21:27] LABS: ALANINE AMINOTRANSFERASE 13 U/L (12-78); ALBUMIN 3.2 g/dL (3.4-5.0); ALKALINE PHOSPHATASE 51 U/L (46-116); ASPARTATE AMINOTRANSFERASE 7 U/L (15-37); BILIRUBIN,TOTAL 0.2 mg/dL (0.1-1.0); HCG,QUANTITATIVE < 1 mIU/mL (0-6); TOTAL PROTEIN, SERUM 6.6 g/dL (6.4-8.2)
[2023-02-27] MEDS ORDERED: HALOPERIDOL 5 MG TABLET PO PRN (21:30)
[2023-02-27] MEDS ORDERED: LORazepam 2 MG TABLET PO PRN (21:30)
[2023-02-27 23:20] LABS: APPEARANCE,URINE CLEAR (CLEAR); BILIRUBIN,URINE NEGATIVE (NEGATIVE); GLUCOSE, URINE (UA) NEGATIVE (NEGATIVE); KETONES,URINE NEGATIVE (NEGATIVE); LEUKOCYTE ESTERASE ,URINE NEGATIVE (NEGATIVE); NITRATE,URINE NEGATIVE (NEGATIVE); OCCULT BLOOD,URINE NEGATIVE (NEGATIVE); PH,URINE 6.5 (5.0-8.0); PROTEIN,URINE NEGATIVE (NEGATIVE); SPECIFIC GRAVITIY, URINE 1.005 (1.003-1.030); UROBILINOGEN,URINE <=1.0 mg/dL (<=1.0)
[2023-02-27 23:27] LABS: AMPHET/METH SCREEN,URINE NEGATIVE (NEGATIVE); BARBITURATE SCREEN, URINE NEGATIVE (NEGATIVE); BENZODIAZEPINES SCREEN,URINE NEGATIVE (NEGATIVE); CANNABINOID SCREEN,URINE NEGATIVE (NEGATIVE); COCAINE SCREEN,URINE NEGATIVE (NEGATIVE); METHADONE SCREEN, URINE NEGATIVE (NEGATIVE); OPIATE SCREEN,URINE NEGATIVE (NEGATIVE); PHENCYCLIDINE SCREEN,URINE NEGATIVE (NEGATIVE)
[2023-02-27 23:42] VITALS: BP 120/80
[2023-02-27 23:43] VITALS: BP 120/80
[2023-02-27] MEDS: ZOLPIDEM TARTRATE 10 MG TABLET PO PRN (23:44)
[2023-02-28] MEDS ORDERED: PNEUMOCOCCAL VACCINE POLYVALENT 0.5 ML VIAL [PPSV23] IM. ONE (04:45)
[2023-02-28] MEDS ORDERED: ACETAMINOPHEN 325 MG TABLET PO PRN (06:45)
[2023-02-28] MEDS ORDERED: ALBUTEROL SULFATE HFA 90 MCG/PUFF 8 GM INHALER IH PRN (06:45)
[2023-02-28] MEDS ORDERED: MAGNESIUM HYDROXIDE SUSPENSION 30 ML UDCUP PO PRN (06:45)
[2023-02-28] MEDS ORDERED: DOCUSATE SODIUM 100 MG CAPSULE PO PRN (06:45)
[2023-02-28] MEDS ORDERED: PETROLATUM,WHITE 28 GM JELLY TP PRN (06:45)
[2023-02-28] MEDS ORDERED: BACITRACIN 28 GM OINTMENT TP PRN (06:45)
[2023-02-28] MEDS ORDERED: IBUPROFEN 600 MG TABLET PO PRN (06:45)
[2023-02-28] MEDS ORDERED: ONDANSETRON HCL 4 MG TABLET PO PRN (06:45)
[2023-02-28] MEDS ORDERED: MAG HYDROX/AL HYDROX/SIMETH ES 30 ML SUSPENSION UDCUP PO PRN (06:45)
[2023-02-28] MEDS ORDERED: OMEPRAZOLE 20 MG CAPSULE PO PRN (06:45)
[2023-02-28] MEDS: LEVOTHYROXINE SODIUM 50 MCG TABLET PO SCH (07:12)
[2023-02-28] MEDS: AmLODIPine BESYLATE 5 MG TABLET PO SCH (09:00)
[2023-02-28 09:10] VITALS: BP 97/55
[2023-02-28 09:11] VITALS: BP 97/55
[2023-02-28] MEDS: OXYBUTYNIN CHLORIDE 5 MG TABLET PO SCH ×2 (10:45→16:25)
[2023-02-28] MEDS: ZOLPIDEM TARTRATE 10 MG TABLET PO PRN (21:00)
[2023-02-28 21:12] VITALS: BP 103/60
[2023-03-01] MEDS: LEVOTHYROXINE SODIUM 50 MCG TABLET PO SCH (06:46)
[2023-03-01 09:21] VITALS: BP 139/90
[2023-03-01] MEDS: OXYBUTYNIN CHLORIDE 5 MG TABLET PO SCH ×2 (09:24→16:07)
[2023-03-01] MEDS: AmLODIPine BESYLATE 5 MG TABLET PO SCH (09:25)
[2023-03-01 10:26] VITALS: BP 132/86
[2023-03-01] MEDS: CloZAPine 100 MG TABLET PO SCH ×2 (10:52→20:26)
[2023-03-01] MEDS: DIVALPROEX SODIUM 500 MG DR TABLET PO SCH (16:07)
[2023-03-01 21:33] VITALS: BP 115/75
[2023-03-02] MEDS: LEVOTHYROXINE SODIUM 50 MCG TABLET PO SCH (06:18)
[2023-03-02 07:13] LABS: HEMOGLOBIN A1C 4.4 % (3.8-5.6)
[2023-03-02 07:20] LABS: ALANINE AMINOTRANSFERASE 12 U/L (12-78); ALKALINE PHOSPHATASE 45 U/L (46-116); ANION GAP 6 mmol/L (8-16); ASPARTATE AMINOTRANSFERASE 5 U/L (15-37); BILIRUBIN,TOTAL 0.3 mg/dL (0.1-1.0); CALCIUM, TOTAL 9.3 mg/dL (8.8-10.5); CARBON DIOXIDE 26 mmol/L (22-29); CHLORIDE 105 mmol/L (98-107); CHOL/HDL RATIO 1.8 (3.9-5.7); CHOLESTEROL 153 mg/dL (131-200); CREATININE 0.78 mg/dL (0.60-1.30); GLOMERULAR FILTR. RATE CALC > 60 mL/min (>60); GLUCOSE,RANDOM 91 mg/dL (70-110); HDL CHOLESTEROL 87 mg/dL (40-60); LDL CHOL (CALC.) 58 mg/dL (0-130); POTASSIUM 4.1 mmol/L (3.5-5.1); SODIUM SERUM 137 mmol/L (136-145); TOTAL PROTEIN, SERUM 6.4 g/dL (6.4-8.2); TRIGLYCERIDES 39 mg/dL (15-150)
[2023-03-02] MEDS: CloZAPine 100 MG TABLET PO SCH ×2 (08:11→21:02)
[2023-03-02] MEDS: OXYBUTYNIN CHLORIDE 5 MG TABLET PO SCH ×2 (08:11→16:40)
[2023-03-02] MEDS: DIVALPROEX SODIUM 500 MG DR TABLET PO SCH ×2 (08:11→16:40)
[2023-03-02] MEDS: AmLODIPine BESYLATE 5 MG TABLET PO SCH (08:11)
[2023-03-02 08:55] VITALS: BP 103/72
[2023-03-02 22:09] VITALS: BP 122/80
[2023-03-03] MEDS: LEVOTHYROXINE SODIUM 50 MCG TABLET PO SCH (06:50)
[2023-03-03] MEDS: OXYBUTYNIN CHLORIDE 5 MG TABLET PO SCH (08:27)
[2023-03-03] MEDS: DIVALPROEX SODIUM 500 MG DR TABLET PO SCH (08:27)
[2023-03-03] MEDS: AmLODIPine BESYLATE 5 MG TABLET PO SCH (08:27)
[2023-03-03] MEDS: CloZAPine 100 MG TABLET PO SCH (08:27)
[2023-03-03 10:46] VITALS: BP 106/76
== END 2023-03-03 15:00 | disposition home or self-care (01) | DRG 750 ==
LOC: EMS 18:59 → 3EI 22:42
PROVIDERS: ADMIT Psychiatry & Neurology Psychiatry; ATTEND Psychiatry & Neurology Psychiatry
DX: F25.9 Schizoaffective disorder, unspecified (principal); G40.909 Epilepsy, unspecified, not intractable, without status epilepticus; R45.851 Suicidal ideations; Z20.822 Contact with and (suspected) exposure to COVID-19; E03.9 Hypothyroidism, unspecified; E55.9 Vitamin D deficiency, unspecified; F41.9 Anxiety disorder, unspecified; G47.00 Insomnia, unspecified; I10 Essential (primary) hypertension; K21.9 Gastro-esophageal reflux disease without esophagitis; K59.00 Constipation, unspecified; N32.81 Overactive bladder; Z91.011 Allergy to milk products; Z91.018 Allergy to other foods; Z79.899 Other long term (current) drug therapy; Z56.0 Unemployment, unspecified
CPT/HCPCS: 80053; 80061; 80307; 81003; 83036; 84702; 85025; 87081; 97162; 99285; G0480

== ENCOUNTER 2023-04-16 19:15 | Emergency (ER) | payer MEDICAID, OTHER ==
[~2023-04-16] VITALS: Ht 157.5 cm; Wt 85.0 kg
[~2023-04-16 19:15] MED LIST changes: -BENZ1TAB84 PO; -FERR325T27 PO; -GABA-533 PO; -IBUP-1492 PO; -NALT50TA5 PO; -OMEG10005 PO; -OMEP20CA12 PO; -PALI234D IM; -SERT-440 PO; -TRAZ-257 PO
[2023-04-16 21:00] VITALS: BP 135/63; PULSE 89; RESP 18; TEMP 97.9
[2023-04-16] MEDS ORDERED: PB/HYOSCY/ATR/SCOP/LIDO/MAALOX 55 ML BOTTLE PO ONE (21:00)
[2023-04-16] MEDS ORDERED: ACETAMINOPHEN 500 MG TABLET PO ONE (21:00)
[2023-04-16] MEDS ORDERED: ONDANSETRON HCL 4 MG TABLET PO ONE (21:00)
== END 2023-04-16 22:29 | disposition home or self-care (01) ==
LOC: EMS 19:15
DX: F25.0 Schizoaffective disorder, bipolar type (principal); R10.10 Upper abdominal pain, unspecified; F41.9 Anxiety disorder, unspecified
CPT/HCPCS: 99284; Q0162

== ENCOUNTER 2023-04-18 21:11 | Emergency (ER) | payer OTHER ==
[~2023-04-18] VITALS: Ht 157.5 cm; Wt 85.0 kg
[2023-04-18 21:50] VITALS: BP 112/74; PULSE 98; RESP 18; TEMP 98.3
[2023-04-19 00:27] LABS: APPEARANCE,URINE CLEAR (CLEAR); BILIRUBIN,URINE NEGATIVE (NEGATIVE); GLUCOSE, URINE (UA) NEGATIVE (NEGATIVE); KETONES,URINE NEGATIVE (NEGATIVE); LEUKOCYTE ESTERASE ,URINE NEGATIVE (NEGATIVE); NITRATE,URINE NEGATIVE (NEGATIVE); OCCULT BLOOD,URINE LARGE (NEGATIVE); PH,URINE 5.5 (5.0-8.0); PROTEIN,URINE NEGATIVE (NEGATIVE); UROBILINOGEN,URINE <=1.0 mg/dL (<=1.0)
[2023-04-19 00:35] LABS: AMPHET/METH SCREEN,URINE NEGATIVE (NEGATIVE); BARBITURATE SCREEN, URINE NEGATIVE (NEGATIVE); BENZODIAZEPINES SCREEN,URINE NEGATIVE (NEGATIVE); CANNABINOID SCREEN,URINE NEGATIVE (NEGATIVE); COCAINE SCREEN,URINE NEGATIVE (NEGATIVE); METHADONE SCREEN, URINE NEGATIVE (NEGATIVE); OPIATE SCREEN,URINE NEGATIVE (NEGATIVE); PHENCYCLIDINE SCREEN,URINE NEGATIVE (NEGATIVE)
[2023-04-19 00:43] LABS: BACTERIA,URINE Few /HPF (None Seen); SQUAMOUS EPITHELIAL CELL,UR Few /LPF (None Seen); WBC,URINE 0-2 /HPF (0-5)
[2023-04-19] MEDS ORDERED: IBUPROFEN 600 MG TABLET PO ONE (02:15)
== END 2023-04-19 03:47 | disposition home or self-care (01) ==
LOC: EMS 21:12
DX: R30.0 Dysuria (principal); F41.9 Anxiety disorder, unspecified; F31.9 Bipolar disorder, unspecified; F20.9 Schizophrenia, unspecified; Z98.890 Other specified postprocedural states; Z91.011 Allergy to milk products; Z91.018 Allergy to other foods
CPT/HCPCS: 80307; 81001; 84703; 87491; 87591; 99283

== ENCOUNTER 2023-04-24 17:35 | Emergency (ER) | payer OTHER ==
[~2023-04-24] VITALS: Ht 157.5 cm; Wt 47.7 kg
[2023-04-24] MEDS ORDERED: LORazepam 1 MG TABLET PO ONE (18:15)
[2023-04-24] MEDS ORDERED: HALOPERIDOL 5 MG TABLET PO ONE (18:15)
[2023-04-24 18:26] LABS: BASOPHILS % (AUTO) 0.7 % (0.0-2.0); EOSINOPHILS % (AUTO) 0.6 % (1.0-6.0); HEMATOCRIT 34.1 % (36-46); HEMOGLOBIN 11.7 g/dL (12.0-16.0); LYMPHOCYTES # (AUTO) 3.1 K/uL (1.0-4.8); LYMPHOCYTES % (AUTO) 42.4 % (22.0-44.0); MEAN CORPUSCULAR HGB CONC 34.3 G/dL (31.0-37.0); MEAN CORPUSCULAR VOLUME 90 fL (80-100); MONOCYTES # (AUTO) 0.6 K/uL (0.1-1.0); MONOCYTES % (AUTO) 8.1 % (2.0-9.0); NEUTROPHILS # (AUTO) 3.5 K/uL (1.8-7.7); NEUTROPHILS % (AUTO) 48.2 % (40.0-70.0); PLATELET COUNT (AUTO) 238 K/uL (150-450); RED BLOOD CELL COUNT(AUTO) 3.78 MIL/uL (4.00-5.20); RED CELL DISTRIBUTION WIDTH 12.7 % (11.5-14.5)
[2023-04-24 18:35] LABS: ANION GAP 10 mmol/L (8-16); CARBON DIOXIDE 26 mmol/L (22-29); CHLORIDE 107 mmol/L (98-107); GLOMERULAR FILTR. RATE CALC > 60 mL/min (>60); GLUCOSE,RANDOM 159 mg/dL (70-110); POTASSIUM 3.4 mmol/L (3.5-5.1); SODIUM SERUM 143 mmol/L (136-145)
[2023-04-24 18:50] LABS: ALANINE AMINOTRANSFERASE 15 U/L (12-78); ALBUMIN 3.3 g/dL (3.4-5.0); ALKALINE PHOSPHATASE 60 U/L (46-116); ASPARTATE AMINOTRANSFERASE 10 U/L (15-37); BILIRUBIN,TOTAL 0.4 mg/dL (0.1-1.0); HCG,QUANTITATIVE < 1 mIU/mL (0-6); TOTAL PROTEIN, SERUM 6.4 g/dL (6.4-8.2)
[2023-04-24 20:30] VITALS: BP 124/63; PULSE 99; RESP 16; TEMP 97.3
== END 2023-04-24 21:00 | disposition home or self-care (01) ==
LOC: EMS 17:36
DX: F20.9 Schizophrenia, unspecified (principal); F41.9 Anxiety disorder, unspecified; F31.9 Bipolar disorder, unspecified; Z98.890 Other specified postprocedural states; Z91.011 Allergy to milk products; Z91.018 Allergy to other foods
CPT/HCPCS: 99285; 80053; 84702; 85025; 36415; G0480

== ENCOUNTER 2023-05-16 12:07 | Emergency (ER) | payer MEDICAID, OTHER ==
[~2023-05-16] VITALS: Ht 167.6 cm; Wt 66.4 kg
[~2023-05-16 12:07] MED LIST changes: -AMLO-257 PO; +BENZ1TAB84 PO; -CLOZ100T11 PO; +CLOZ100T61 PO; -DIVA-112 PO; +GABA-1201 PO; +LEVO50 PO; -LEVO50TA11 PO; +MELA5TAB40 PO; +NALT50TA PO; +SERT-440 PO; +TRAZ-257 PO
[2023-05-16 12:24] VITALS: TEMP 98.8
[2023-05-16 13:08] LABS: BASOPHILS % (AUTO) 0.9 % (0.0-2.0); EOSINOPHILS % (AUTO) 0.8 % (1.0-6.0); HEMATOCRIT 35.6 % (36-46); LYMPHOCYTES # (AUTO) 2.5 K/uL (1.0-4.8); LYMPHOCYTES % (AUTO) 22.5 % (22.0-44.0); MEAN CORPUSCULAR HEMOGLOBIN 30.7 pg (26.0-34.0); MEAN CORPUSCULAR HGB CONC 33.6 G/dL (31.0-37.0); MEAN CORPUSCULAR VOLUME 91 fL (80-100); MONOCYTES # (AUTO) 0.6 K/uL (0.1-1.0); MONOCYTES % (AUTO) 5.1 % (2.0-9.0); NEUTROPHILS # (AUTO) 7.8 K/uL (1.8-7.7); NEUTROPHILS % (AUTO) 70.7 % (40.0-70.0); PLATELET COUNT (AUTO) 259 K/uL (150-450); RED CELL DISTRIBUTION WIDTH 13.5 % (11.5-14.5)
[2023-05-16 13:19] LABS: ANION GAP 8 mmol/L (8-16); CARBON DIOXIDE 25 mmol/L (22-29); CHLORIDE 106 mmol/L (98-107); CREATININE 0.84 mg/dL (0.60-1.30); GLOMERULAR FILTR. RATE CALC > 60 mL/min (>60); GLUCOSE,RANDOM 130 mg/dL (70-110); POTASSIUM 3.6 mmol/L (3.5-5.1); SODIUM SERUM 139 mmol/L (136-145)
[2023-05-16 13:25] LABS: ALANINE AMINOTRANSFERASE 33 U/L (12-78); ALBUMIN 3.3 g/dL (3.4-5.0); ALKALINE PHOSPHATASE 77 U/L (46-116); ASPARTATE AMINOTRANSFERASE 13 U/L (15-37); BILIRUBIN,TOTAL 0.3 mg/dL (0.1-1.0); TOTAL PROTEIN, SERUM 6.5 g/dL (6.4-8.2)
[2023-05-16] MEDS ORDERED: ACETAMINOPHEN 325 MG TABLET PO ONE (15:00)
[2023-05-16 15:15] VITALS: BP 112/62; PULSE 89; RESP 18
== END 2023-05-16 15:43 | disposition home or self-care (01) ==
LOC: EMS 12:19
DX: S92.351A Displaced fracture of fifth metatarsal bone, right foot, initial encounter for closed fracture (principal); F41.9 Anxiety disorder, unspecified; F31.9 Bipolar disorder, unspecified; F20.9 Schizophrenia, unspecified; Z98.890 Other specified postprocedural states; Z91.011 Allergy to milk products; Z91.018 Allergy to other foods; X50.1XXA Overexertion from prolonged static or awkward postures, initial encounter; Y93.89 Activity, other specified; Y92.89 Other specified places as the place of occurrence of the external cause; Y99.8 Other external cause status
CPT/HCPCS: 80053; 84703; 85025; 99284

== ENCOUNTER 2023-05-21 19:04 | Emergency (ER) | payer OTHER ==
[~2023-05-21] VITALS: Ht 167.6 cm; Wt 65.0 kg
[2023-05-21 19:29] VITALS: TEMP 98.5
[2023-05-21 21:46] LABS: COVID AG,FIA SOURCE NASOPHARYNGEAL
[2023-05-21 21:50] VITALS: BP 126/75; PULSE 87; RESP 16
[2023-05-21 21:57] LABS: SARS-COV2 (COVID) ANTIGEN,FIA Negative (Negative)
== END 2023-05-21 23:46 | disposition home or self-care (01) ==
LOC: EMS 19:07
DX: S92.002A Unspecified fracture of left calcaneus, initial encounter for closed fracture (principal); F41.9 Anxiety disorder, unspecified; F31.9 Bipolar disorder, unspecified; F20.9 Schizophrenia, unspecified; Z98.890 Other specified postprocedural states; Z91.011 Allergy to milk products; Z91.018 Allergy to other foods; Z20.822 Contact with and (suspected) exposure to COVID-19
CPT/HCPCS: 29515; 99284

== ENCOUNTER 2023-05-31 22:56 | Inpatient (IN) | payer MEDICAID, OTHER ==
[~2023-05-31] VITALS: Ht 167.6 cm; Wt 68.9 kg
[2023-06-01] MEDS ORDERED: FLUCONAZOLE 150 MG TABLET PO ONE
[2023-06-01 00:24] LABS: BASOPHILS % (AUTO) 0.8 % (0.0-2.0); EOSINOPHILS % (AUTO) 1.2 % (1.0-6.0); HEMATOCRIT 32.7 % (36-46); HEMOGLOBIN 10.7 g/dL (12.0-16.0); LYMPHOCYTES # (AUTO) 4.7 K/uL (1.0-4.8); MEAN CORPUSCULAR HEMOGLOBIN 29.8 pg (26.0-34.0); MEAN CORPUSCULAR HGB CONC 32.7 G/dL (31.0-37.0); MEAN CORPUSCULAR VOLUME 91 fL (80-100); MONOCYTES # (AUTO) 0.6 K/uL (0.1-1.0); MONOCYTES % (AUTO) 7.4 % (2.0-9.0); NEUTROPHILS # (AUTO) 3.2 K/uL (1.8-7.7); NEUTROPHILS % (AUTO) 36.6 % (40.0-70.0); PLATELET COUNT (AUTO) 280 K/uL (150-450); RED BLOOD CELL COUNT(AUTO) 3.59 MIL/uL (4.00-5.20); RED CELL DISTRIBUTION WIDTH 13.8 % (11.5-14.5); WHITE BLOOD COUNT (AUTO) 8.6 K/uL (4.5-11.0)
[2023-06-01 00:29] LABS: APPEARANCE,URINE CLEAR (CLEAR); BILIRUBIN,URINE NEGATIVE (NEGATIVE); COLOR,URINE COLORLESS (YELLOW); GLUCOSE, URINE (UA) NEGATIVE (NEGATIVE); KETONES,URINE NEGATIVE (NEGATIVE); LEUKOCYTE ESTERASE ,URINE NEGATIVE (NEGATIVE); NITRATE,URINE NEGATIVE (NEGATIVE); OCCULT BLOOD,URINE NEGATIVE (NEGATIVE); PH,URINE 6.5 (5.0-8.0); PH,URINE DRUG SCREEN 6.5 (5.0-8.0); PROTEIN,URINE NEGATIVE (NEGATIVE); SPECIFIC GRAVITIY, URINE 1.007 (1.003-1.030); UROBILINOGEN,URINE <=1.0 mg/dL (<=1.0)
[2023-06-01 00:35] LABS: AMPHET/METH SCREEN,URINE NEGATIVE (NEGATIVE); BARBITURATE SCREEN, URINE NEGATIVE (NEGATIVE); BENZODIAZEPINES SCREEN,URINE NEGATIVE (NEGATIVE); CANNABINOID SCREEN,URINE NEGATIVE (NEGATIVE); COCAINE SCREEN,URINE NEGATIVE (NEGATIVE); METHADONE SCREEN, URINE NEGATIVE (NEGATIVE); OPIATE SCREEN,URINE NEGATIVE (NEGATIVE); PHENCYCLIDINE SCREEN,URINE NEGATIVE (NEGATIVE)
[2023-06-01 00:40] LABS: ALCOHOL, URINE DRUG SCREEN NEGATIVE (NEGATIVE)
[2023-06-01 00:40] LABS: ALCOHOL, BLOOD (SERUM) < 3 mg/dL (0-10)
[2023-06-01 00:44] LABS: ANION GAP 8 mmol/L (8-16); CALCIUM, TOTAL 8.9 mg/dL (8.8-10.5); CARBON DIOXIDE 27 mmol/L (22-29); CHLORIDE 106 mmol/L (98-107); CREATININE 0.63 mg/dL (0.60-1.30); GLOMERULAR FILTR. RATE CALC > 60 mL/min (>60); GLUCOSE,RANDOM 86 mg/dL (70-110); POTASSIUM 3.8 mmol/L (3.5-5.1); SODIUM SERUM 141 mmol/L (136-145); UREA NITROGEN, BLOOD 10 mg/dL (7-18)
[2023-06-01 00:50] LABS: COVID AG,FIA SOURCE NASOPHARYNGEAL
[2023-06-01 00:51] LABS: ALANINE AMINOTRANSFERASE 19 U/L (12-78); ALBUMIN 3.2 g/dL (3.4-5.0); ALKALINE PHOSPHATASE 65 U/L (46-116); ASPARTATE AMINOTRANSFERASE 10 U/L (15-37); BILIRUBIN,TOTAL 0.3 mg/dL (0.1-1.0); TOTAL PROTEIN, SERUM 5.9 g/dL (6.4-8.2)
[2023-06-01] MEDS ORDERED: HALOPERIDOL 5 MG TABLET PO PRN (01:00)
[2023-06-01] MEDS ORDERED: ZOLPIDEM TARTRATE 10 MG TABLET PO PRN (01:00)
[2023-06-01 01:17] LABS: RBC MORPHOLOGY COMMENT NORMAL RBC MORPH
[2023-06-01 01:22] LABS: SARS-COV2 (COVID) ANTIGEN,FIA Negative (Negative)
[2023-06-01 15:29] VITALS: BP 99/67; PULSE 101; RESP 18; TEMP 97.3; O2SAT 94
[2023-06-01] MEDS: LORazepam 2 MG TABLET PO PRN (16:17)
[2023-06-01 20:35] VITALS: BP 106/68; PULSE 81; RESP 18; TEMP 97.5; O2SAT 96
[2023-06-01] MEDS ORDERED: ACETAMINOPHEN 325 MG TABLET PO PRN (21:15)
[2023-06-01] MEDS ORDERED: DOCUSATE SODIUM 100 MG CAPSULE PO PRN (21:15)
[2023-06-01] MEDS ORDERED: ONDANSETRON HCL 4 MG TABLET PO PRN (21:15)
[2023-06-01] MEDS ORDERED: PETROLATUM,WHITE 28 GM JELLY TP PRN (21:15)
[2023-06-01] MEDS ORDERED: NICOTINE 14 MG/24 HOUR PATCH TD PRN (21:15)
[2023-06-01] MEDS ORDERED: MAG HYDROX/AL HYDROX/SIMETH ES 30 ML SUSPENSION UDCUP PO PRN (21:15)
[2023-06-01] MEDS ORDERED: MAGNESIUM HYDROXIDE SUSPENSION 30 ML UDCUP PO PRN (21:15)
[2023-06-01] MEDS ORDERED: ALBUTEROL SULFATE HFA 90 MCG/PUFF 8 GM INHALER IH PRN (21:15)
[2023-06-01] MEDS ORDERED: GuaiFENesin/D-METHORPHAN [SUGAR-FREE] 200-20MG/10 ML SYRUP UDCUP PO PRN (21:15)
[2023-06-01] MEDS ORDERED: CloNIDine HCL 0.1 MG TABLET PO PRN (21:15)
[2023-06-02] MEDS: LEVOTHYROXINE SODIUM 50 MCG TABLET PO SCH (06:27)
[2023-06-02 08:09] VITALS: BP 104/66; PULSE 90; RESP 16; TEMP 97.6; O2SAT 98
[2023-06-02 08:18] LABS: HEMOGLOBIN A1C 5.1 % (3.8-5.6)
[2023-06-02] MEDS: OXYBUTYNIN CHLORIDE 5 MG TABLET PO SCH ×2 (08:28→16:57)
[2023-06-02 08:36] LABS: CHOL/HDL RATIO 2.9 (3.9-5.7); THYROID STIMULATING HORMONE 3.39 uIU/mL (0.36-3.74)
[2023-06-02] MEDS: SERTRALINE HCL 100 MG TABLET PO SCH (13:30)
[2023-06-02] MEDS: NALTREXONE HCL 50 MG TABLET PO SCH (13:40)
[2023-06-02] MEDS: IBUPROFEN 400 MG TABLET PO PRN ×2 (13:41→22:28)
[2023-06-02] MEDS: LORazepam 2 MG TABLET PO PRN (13:41)
[2023-06-02] MEDS: GABAPENTIN 400 MG CAPSULE PO SCH ×2 (16:57→20:10)
[2023-06-02] MEDS: BENZTROPINE MESYLATE 1 MG TABLET PO SCH (16:58)
[2023-06-02 20:03] VITALS: BP 112/62; PULSE 87; RESP 17; TEMP 97.8; O2SAT 97
[2023-06-02] MEDS: CloZAPine 100 MG TABLET PO SCH (20:10)
[2023-06-02] MEDS: MELATONIN 5 MG TABLET PO SCH (20:10)
[2023-06-02] MEDS: TraZODone HCL 100 MG TABLET PO SCH (20:11)
[2023-06-02 22:28] VITALS: RESP 18
[2023-06-02 23:28] VITALS: RESP 17
[2023-06-03] MEDS ORDERED: TraMADol HCL 50 MG TABLET PO PRN (02:00)
[2023-06-03] MEDS: LEVOTHYROXINE SODIUM 50 MCG TABLET PO SCH (06:51)
[2023-06-03] MEDS: NALTREXONE HCL 50 MG TABLET PO SCH (08:17)
[2023-06-03] MEDS: LORazepam 2 MG TABLET PO PRN ×2 (08:17→16:31)
[2023-06-03] MEDS: SERTRALINE HCL 100 MG TABLET PO SCH (08:17)
[2023-06-03] MEDS: BENZTROPINE MESYLATE 1 MG TABLET PO SCH ×2 (08:17→16:31)
[2023-06-03] MEDS: OXYBUTYNIN CHLORIDE 5 MG TABLET PO SCH ×2 (08:17→16:31)
[2023-06-03] MEDS: GABAPENTIN 400 MG CAPSULE PO SCH ×4 (08:17→20:41)
[2023-06-03 08:29] VITALS: BP 100/65; PULSE 87; RESP 16; TEMP 98.2; O2SAT 95
[2023-06-03 20:00] VITALS: BP 107/67; PULSE 68; RESP 18; TEMP 97.6; O2SAT 100
[2023-06-03] MEDS: MELATONIN 5 MG TABLET PO SCH (20:41)
[2023-06-03] MEDS: CloZAPine 100 MG TABLET PO SCH (20:41)
[2023-06-03] MEDS: TraZODone HCL 100 MG TABLET PO SCH (20:41)
[2023-06-04 00:16] VITALS: BP 133/53; PULSE 93; RESP 18; TEMP 97.5
[2023-06-04] MEDS: LEVOTHYROXINE SODIUM 50 MCG TABLET PO SCH (06:20)
[2023-06-04 08:08] VITALS: BP 99/63; PULSE 110; RESP 18; TEMP 97.8; O2SAT 99
[2023-06-04] MEDS: NALTREXONE HCL 50 MG TABLET PO SCH (08:13)
[2023-06-04] MEDS: GABAPENTIN 400 MG CAPSULE PO SCH ×4 (08:13→20:18)
[2023-06-04] MEDS: LORazepam 2 MG TABLET PO PRN (08:13)
[2023-06-04] MEDS: BENZTROPINE MESYLATE 1 MG TABLET PO SCH ×2 (08:13→16:08)
[2023-06-04] MEDS: OXYBUTYNIN CHLORIDE 5 MG TABLET PO SCH ×2 (08:13→16:36)
[2023-06-04] MEDS: SERTRALINE HCL 100 MG TABLET PO SCH (08:13)
[2023-06-04] MEDS: CloZAPine 100 MG TABLET PO SCH (20:18)
[2023-06-04] MEDS: TraZODone HCL 100 MG TABLET PO SCH (20:18)
[2023-06-04] MEDS: MELATONIN 5 MG TABLET PO SCH (20:18)
[2023-06-04 21:02] VITALS: BP 102/71; PULSE 82; RESP 18; TEMP 97.4; O2SAT 100
[2023-06-05 02:58] VITALS: BP 104/64; PULSE 84; RESP 18; TEMP 97.5; O2SAT 99
[2023-06-05] MEDS: LEVOTHYROXINE SODIUM 50 MCG TABLET PO SCH (06:43)
[2023-06-05] MEDS: OXYBUTYNIN CHLORIDE 5 MG TABLET PO SCH ×2 (08:04→17:09)
[2023-06-05] MEDS: NALTREXONE HCL 50 MG TABLET PO SCH (08:04)
[2023-06-05] MEDS: GABAPENTIN 400 MG CAPSULE PO SCH ×4 (08:04→20:56)
[2023-06-05] MEDS: SERTRALINE HCL 100 MG TABLET PO SCH (08:04)
[2023-06-05] MEDS: BENZTROPINE MESYLATE 1 MG TABLET PO SCH ×2 (08:04→17:09)
[2023-06-05 09:23] VITALS: RESP 18
[2023-06-05 20:18] VITALS: BP 101/61; PULSE 109; RESP 19; TEMP 97.7; O2SAT 98
[2023-06-05] MEDS: CloZAPine 100 MG TABLET PO SCH (20:55)
[2023-06-05] MEDS: TraZODone HCL 100 MG TABLET PO SCH (20:56)
[2023-06-05] MEDS: MELATONIN 5 MG TABLET PO SCH (20:56)
[2023-06-05] MEDS: IBUPROFEN 400 MG TABLET PO PRN (21:04)
[2023-06-06] MEDS: LEVOTHYROXINE SODIUM 50 MCG TABLET PO SCH (06:45)
[2023-06-06] MEDS: SERTRALINE HCL 100 MG TABLET PO SCH (08:18)
[2023-06-06] MEDS: NALTREXONE HCL 50 MG TABLET PO SCH (08:18)
[2023-06-06] MEDS: OXYBUTYNIN CHLORIDE 5 MG TABLET PO SCH ×2 (08:19→16:09)
[2023-06-06] MEDS: LORazepam 2 MG TABLET PO PRN (08:19)
[2023-06-06] MEDS: GABAPENTIN 400 MG CAPSULE PO SCH ×4 (08:19→20:00)
[2023-06-06] MEDS: BENZTROPINE MESYLATE 1 MG TABLET PO SCH ×2 (08:19→16:09)
[2023-06-06] MEDS: TraZODone HCL 100 MG TABLET PO SCH (20:00)
[2023-06-06] MEDS: CloZAPine 100 MG TABLET PO SCH (20:00)
[2023-06-06] MEDS: MELATONIN 5 MG TABLET PO SCH (20:00)
[2023-06-06 20:03] VITALS: BP 113/80; PULSE 90; RESP 17; TEMP 97.6; O2SAT 98
[2023-06-07] MEDS: LEVOTHYROXINE SODIUM 50 MCG TABLET PO SCH (06:33)
[2023-06-07 08:28] VITALS: BP 103/63; PULSE 82; RESP 17; TEMP 97.6; O2SAT 100
[2023-06-07] MEDS: NALTREXONE HCL 50 MG TABLET PO SCH (09:28)
[2023-06-07] MEDS: SERTRALINE HCL 100 MG TABLET PO SCH (09:29)
[2023-06-07] MEDS: OXYBUTYNIN CHLORIDE 5 MG TABLET PO SCH (09:29)
[2023-06-07] MEDS: GABAPENTIN 400 MG CAPSULE PO SCH ×2 (09:29→12:32)
[2023-06-07] MEDS: BENZTROPINE MESYLATE 1 MG TABLET PO SCH (09:36)
[2023-06-07] MEDS ORDERED: SERT-440 PO (10:42)
[2023-06-07] MEDS ORDERED: TRAZ-257 PO (10:42)
[2023-06-07] MEDS ORDERED: BENZ1TAB84 PO (10:42)
[2023-06-07] MEDS ORDERED: MELA5TAB40 PO (10:42)
[2023-06-07] MEDS ORDERED: NALT50TA PO (10:42)
[2023-06-07] MEDS ORDERED: CLOZ100T61 PO (10:42)
[2023-06-07] MEDS ORDERED: OXYB5TAB20 PO (10:42)
[2023-06-07] MEDS ORDERED: GABA-1201 PO (10:42)
[2023-06-07] MEDS ORDERED: LEVO50 PO (10:42)
== END 2023-06-07 14:36 | disposition home or self-care (01) | DRG 750 ==
LOC: EMS 22:57 → B3A 06-01 11:32
PROVIDERS: ADMIT Psychiatry & Neurology Psychiatry; ATTEND Psychiatry & Neurology Psychiatry
DX: F25.0 Schizoaffective disorder, bipolar type (principal); R45.851 Suicidal ideations; E11.9 Type 2 diabetes mellitus without complications; B37.31 Acute candidiasis of vulva and vagina; D64.9 Anemia, unspecified; E03.9 Hypothyroidism, unspecified; G40.909 Epilepsy, unspecified, not intractable, without status epilepticus; K21.9 Gastro-esophageal reflux disease without esophagitis; F41.9 Anxiety disorder, unspecified; Z20.822 Contact with and (suspected) exposure to COVID-19; I10 Essential (primary) hypertension; K59.00 Constipation, unspecified; G47.00 Insomnia, unspecified; R32 Unspecified urinary incontinence; J44.9 Chronic obstructive pulmonary disease, unspecified; Z79.899 Other long term (current) drug therapy; Z91.018 Allergy to other foods
CPT/HCPCS: 80053; 80061; 80307; 81003; 83036; 84443; 84703; 85025; 99285; G0480; Q9967

== ENCOUNTER 2023-06-18 15:15 | Inpatient (IN) | payer MEDICAID ==
[~2023-06-18] VITALS: Ht 167.6 cm; Wt 69.4 kg
[2023-06-18 16:02] LABS: BASOPHILS % (AUTO) 0.7 % (0.0-2.0); EOSINOPHILS % (AUTO) 1.3 % (1.0-6.0); HEMATOCRIT 34.7 % (36-46); HEMOGLOBIN 11.6 g/dL (12.0-16.0); LYMPHOCYTES # (AUTO) 3.7 K/uL (1.0-4.8); MEAN CORPUSCULAR HEMOGLOBIN 30.5 pg (26.0-34.0); MEAN CORPUSCULAR HGB CONC 33.5 G/dL (31.0-37.0); MEAN CORPUSCULAR VOLUME 91 fL (80-100); MONOCYTES # (AUTO) 0.5 K/uL (0.1-1.0); MONOCYTES % (AUTO) 6.1 % (2.0-9.0); NEUTROPHILS % (AUTO) 47.9 % (40.0-70.0); PLATELET COUNT (AUTO) 286 K/uL (150-450); RED CELL DISTRIBUTION WIDTH 14.4 % (11.5-14.5); WHITE BLOOD COUNT (AUTO) 8.4 K/uL (4.5-11.0)
[2023-06-18 16:12] LABS: ANION GAP 10 mmol/L (8-16); CALCIUM, TOTAL 9.3 mg/dL (8.8-10.5); CARBON DIOXIDE 25 mmol/L (22-29); CHLORIDE 106 mmol/L (98-107); CREATININE 0.77 mg/dL (0.60-1.30); GLOMERULAR FILTR. RATE CALC > 60 mL/min (>60); GLUCOSE,RANDOM 110 mg/dL (70-110); POTASSIUM 3.9 mmol/L (3.5-5.1); SODIUM SERUM 141 mmol/L (136-145); UREA NITROGEN, BLOOD 13 mg/dL (7-18)
[2023-06-18 16:18] LABS: ALANINE AMINOTRANSFERASE 35 U/L (12-78); ALBUMIN 3.7 g/dL (3.4-5.0); ALKALINE PHOSPHATASE 67 U/L (46-116); ASPARTATE AMINOTRANSFERASE 23 U/L (15-37); BILIRUBIN,TOTAL 0.3 mg/dL (0.1-1.0); TOTAL PROTEIN, SERUM 6.9 g/dL (6.4-8.2)
[2023-06-18 16:32] LABS: ALCOHOL, BLOOD (SERUM) < 3 mg/dL (0-10)
[2023-06-18 18:26] LABS: COVID AG,FIA SOURCE NASAL SWAB
[2023-06-18] MEDS ORDERED: ZOLPIDEM TARTRATE 10 MG TABLET PO PRN (18:45)
[2023-06-18] MEDS ORDERED: OLANZapine 5 MG RAPDIS TABLET PO PRN (18:45)
[2023-06-18 18:46] LABS: SARS-COV2 (COVID) ANTIGEN,FIA Negative (Negative)
[2023-06-18] MEDS: LORazepam 2 MG TABLET PO PRN (20:24)
[2023-06-18 21:30] LABS: APPEARANCE,URINE CLEAR (CLEAR); BILIRUBIN,URINE NEGATIVE (NEGATIVE); COLOR,URINE COLORLESS (YELLOW); GLUCOSE, URINE (UA) NEGATIVE (NEGATIVE); KETONES,URINE NEGATIVE (NEGATIVE); LEUKOCYTE ESTERASE ,URINE NEGATIVE (NEGATIVE); NITRATE,URINE NEGATIVE (NEGATIVE); OCCULT BLOOD,URINE NEGATIVE (NEGATIVE); PROTEIN,URINE NEGATIVE (NEGATIVE); SPECIFIC GRAVITIY, URINE 1.009 (1.003-1.030); UROBILINOGEN,URINE <=1.0 mg/dL (<=1.0)
[2023-06-18 21:36] LABS: ALCOHOL, URINE DRUG SCREEN NEGATIVE (NEGATIVE); AMPHET/METH SCREEN,URINE NEGATIVE (NEGATIVE); BARBITURATE SCREEN, URINE NEGATIVE (NEGATIVE); BENZODIAZEPINES SCREEN,URINE NEGATIVE (NEGATIVE); CANNABINOID SCREEN,URINE NEGATIVE (NEGATIVE); COCAINE SCREEN,URINE NEGATIVE (NEGATIVE); METHADONE SCREEN, URINE NEGATIVE (NEGATIVE); OPIATE SCREEN,URINE NEGATIVE (NEGATIVE); PHENCYCLIDINE SCREEN,URINE NEGATIVE (NEGATIVE)
[2023-06-19] VITALS: BP 104/71; PULSE 100; RESP 18; TEMP 97.3; O2SAT 99
[2023-06-19] MEDS: LORazepam 2 MG TABLET PO PRN (08:12)
[2023-06-19 08:19] LABS: HEMOGLOBIN A1C 4.8 % (3.8-5.6)
[2023-06-19 08:25] LABS: HCG,QUANTITATIVE < 1 mIU/mL (0-6); THYROID STIMULATING HORMONE 3.31 uIU/mL (0.36-3.74)
[2023-06-19 08:30] VITALS: BP 130/67; PULSE 91; RESP 17; TEMP 97.3; O2SAT 99
[2023-06-19] MEDS ORDERED: TraMADol HCL 50 MG TABLET PO PRN (10:15)
[2023-06-19] MEDS: GABAPENTIN 400 MG CAPSULE PO SCH ×2 (12:37→16:41)
[2023-06-19] MEDS: OXYBUTYNIN CHLORIDE 5 MG TABLET PO SCH (16:41)
[2023-06-19] MEDS ORDERED: BENZTROPINE MESYLATE 1 MG TABLET PO SCH (17:00)
[2023-06-19 20:00] VITALS: BP 107/76; PULSE 92; RESP 18; TEMP 97.5; O2SAT 100
[2023-06-19] MEDS: BENZTROPINE MESYLATE 2 MG TABLET PO SCH (20:45)
[2023-06-19] MEDS: CloZAPine 100 MG TABLET PO SCH (20:46)
[2023-06-19] MEDS ORDERED: MELATONIN 5 MG TABLET PO SCH (21:00)
[2023-06-19] MEDS ORDERED: CloZAPine 100 MG TABLET PO SCH (21:00)
[2023-06-19] MEDS ORDERED: TraZODone HCL 100 MG TABLET PO SCH (21:00)
[2023-06-20] MEDS ORDERED: MAG HYDROX/AL HYDROX/SIMETH ES 30 ML SUSPENSION UDCUP PO PRN ×2 (00:15→00:30)
[2023-06-20] MEDS: LEVOTHYROXINE SODIUM 50 MCG TABLET PO SCH (05:56)
[2023-06-20] MEDS: CloZAPine 100 MG TABLET PO SCH ×2 (08:08→20:10)
[2023-06-20] MEDS: OXYBUTYNIN CHLORIDE 5 MG TABLET PO SCH ×2 (08:09→16:07)
[2023-06-20 08:27] VITALS: BP 100/70; PULSE 82; RESP 18; TEMP 97.3; O2SAT 98
[2023-06-20] MEDS ORDERED: NALTREXONE HCL 50 MG TABLET PO SCH (09:00)
[2023-06-20] MEDS ORDERED: SERTRALINE HCL 100 MG TABLET PO SCH (09:00)
[2023-06-20] MEDS: BENZTROPINE MESYLATE 2 MG TABLET PO SCH (20:10)
[2023-06-20 20:29] VITALS: BP 114/72; PULSE 93; RESP 18; TEMP 97.3; O2SAT 99
[2023-06-21] MEDS: LEVOTHYROXINE SODIUM 50 MCG TABLET PO SCH (06:49)
[2023-06-21] MEDS: CloZAPine 100 MG TABLET PO SCH (08:24)
[2023-06-21] MEDS: OXYBUTYNIN CHLORIDE 5 MG TABLET PO SCH ×2 (08:24→16:48)
[2023-06-21 09:01] VITALS: BP 113/73; PULSE 100; RESP 17; TEMP 97; O2SAT 100
[2023-06-21] MEDS ORDERED: HydrOXYzine PAMOATE 50 MG CAPSULE PO PRN (10:00)
[2023-06-21] MEDS ORDERED: PROMETHAZINE HCL 25 MG TABLET PO PRN (10:00)
[2023-06-21] MEDS ORDERED: GuaiFENesin/D-METHORPHAN [SUGAR-FREE] 200-20MG/10 ML SYRUP UDCUP PO PRN (10:00)
[2023-06-21] MEDS ORDERED: ACETAMINOPHEN 325 MG TABLET PO PRN (10:00)
[2023-06-21] MEDS ORDERED: MAG HYDROX/AL HYDROX/SIMETH ES 30 ML SUSPENSION UDCUP PO PRN (10:00)
[2023-06-21] MEDS ORDERED: TUBERCULIN, PURIFIED PROTEIN DERIVATIVE 5 TU/0.1 ML SYRINGE ID ONE (10:00)
[2023-06-21] MEDS ORDERED: MAGNESIUM HYDROXIDE SUSPENSION 30 ML UDCUP PO PRN (10:00)
[2023-06-21] MEDS ORDERED: LOPERAMIDE HCL 2 MG CAPSULE PO PRN (10:00)
[2023-06-21] MEDS ORDERED: OLANZapine 5 MG RAPDIS TABLET PO PRN (10:00)
[2023-06-21] MEDS: THIAMINE 100 MG TABLET PO SCH (16:48)
[2023-06-21] MEDS ORDERED: OMEG-135 PO (16:54)
[2023-06-21] MEDS ORDERED: CLOZ100T61 PO (16:54)
[2023-06-21] MEDS ORDERED: MELA5TAB40 PO (16:54)
[2023-06-21] MEDS ORDERED: TRAZ-257 PO (16:54)
[2023-06-21] MEDS ORDERED: GABA-1201 PO (16:54)
[2023-06-21] MEDS ORDERED: SERT-439 PO (16:54)
[2023-06-21] MEDS ORDERED: DIVA500T69 PO (16:54)
[2023-06-21] MEDS: GABAPENTIN 400 MG CAPSULE PO SCH ×2 (17:23→21:10)
[2023-06-21] MEDS ORDERED: TraZODone HCL 100 MG TABLET PO SCH (21:00)
[2023-06-21] MEDS ORDERED: DIVALPROEX SODIUM 500 MG ER TABLET PO SCH (21:00)
[2023-06-21] MEDS ORDERED: MELATONIN 5 MG TABLET PO SCH (21:00)
[2023-06-21] MEDS ORDERED: CloZAPine 100 MG TABLET PO SCH (21:00)
[2023-06-21 21:58] VITALS: RESP 18
[2023-06-22] MEDS: LEVOTHYROXINE SODIUM 50 MCG TABLET PO SCH (06:18)
[2023-06-22 08:00] VITALS: BP 100/66; PULSE 105; RESP 16; TEMP 96; O2SAT 97
[2023-06-22 08:02] LABS: HEMOGLOBIN A1C 4.8 % (3.8-5.6)
[2023-06-22] MEDS: THIAMINE 100 MG TABLET PO SCH (08:14)
[2023-06-22] MEDS: GABAPENTIN 400 MG CAPSULE PO SCH ×2 (08:14→12:29)
[2023-06-22] MEDS: OXYBUTYNIN CHLORIDE 5 MG TABLET PO SCH (08:14)
[2023-06-22 08:19] LABS: CHOL/HDL RATIO 1.8 (3.9-5.7); FREE T4 (FREE THYROXINE) 1.12 ng/dL (0.76-1.46); THYROID STIMULATING HORMONE 3.1 uIU/mL (0.36-3.74)
[2023-06-22] MEDS ORDERED: FOLIC ACID 1 MG TABLET PO SCH (09:00)
[2023-06-22] MEDS ORDERED: SERTRALINE HCL 100 MG TABLET PO SCH (09:00)
[2023-06-22] MEDS ORDERED: SERTRALINE HCL 50 MG TABLET PO SCH (09:00)
[2023-06-22] MEDS ORDERED: OMEGA-3/DHA/EPA/FISH OIL 1,000 MG CAPSULE PO SCH (09:00)
[2023-06-22] MEDS ORDERED: NALTREXONE HCL 50 MG TABLET PO SCH (09:00)
[2023-06-22] MEDS ORDERED: MULTIVITAMINS WITH MINERALS, THERAPEUTIC TABLET PO SCH (09:00)
== END 2023-06-22 13:41 | disposition home or self-care (01) | DRG 750 ==
LOC: EMS 15:22 → B3A 23:31
PROVIDERS: ADMIT Psychiatry & Neurology Psychiatry; ATTEND Psychiatry & Neurology Psychiatry
DX: F25.1 Schizoaffective disorder, depressive type (principal); R45.851 Suicidal ideations; F29 Unspecified psychosis not due to a substance or known physiological condition; E03.9 Hypothyroidism, unspecified; F19.21 Other psychoactive substance dependence, in remission; K21.9 Gastro-esophageal reflux disease without esophagitis; Z20.822 Contact with and (suspected) exposure to COVID-19; F41.9 Anxiety disorder, unspecified; M19.079 Primary osteoarthritis, unspecified ankle and foot; D64.9 Anemia, unspecified; R32 Unspecified urinary incontinence; F31.9 Bipolar disorder, unspecified; Z86.16 Personal history of COVID-19; Z79.899 Other long term (current) drug therapy; Z91.011 Allergy to milk products; Z91.018 Allergy to other foods
CPT/HCPCS: 80053; 80061; 80159; 80307; 81003; 83036; 84439; 84443; 84702; 85025; 86001; 86592; 87081; 99285; G0480; Q9967

== ENCOUNTER 2023-07-01 22:32 | Inpatient (IN) | payer MEDICAID, OTHER ==
[~2023-07-01] VITALS: Ht 167.6 cm; Wt 70.0 kg
[~2023-07-01 22:32] MED LIST changes: -BENZ1TAB84 PO; +DIVA500T69 PO; -LEVO50 PO; -NALT50TA PO; +OMEG-135 PO; -OXYB5TAB20 PO; +SERT-439 PO; -SERT-440 PO
[2023-07-01 22:59] LABS: HEMOGLOBIN 10.9 g/dL (12.0-16.0); MONOCYTES # (AUTO) 0.7 K/uL (0.1-1.0); NEUTROPHILS # (AUTO) 3.1 K/uL (1.8-7.7)
[2023-07-01 23:02] LABS: EOSINOPHILS % (AUTO) 1.7 % (1.0-6.0); HEMATOCRIT 32.3 % (36-46); LYMPHOCYTES # (AUTO) 4.2 K/uL (1.0-4.8); LYMPHOCYTES % (AUTO) 51.1 % (22.0-44.0); MEAN CORPUSCULAR HEMOGLOBIN 30.9 pg (26.0-34.0); MEAN CORPUSCULAR HGB CONC 33.8 G/dL (31.0-37.0); MEAN CORPUSCULAR VOLUME 91 fL (80-100); MONOCYTES % (AUTO) 8.5 % (2.0-9.0); NEUTROPHILS % (AUTO) 37.7 % (40.0-70.0); PLATELET COUNT (AUTO) 311 K/uL (150-450); RED BLOOD CELL COUNT(AUTO) 3.53 MIL/uL (4.00-5.20); RED CELL DISTRIBUTION WIDTH 14.4 % (11.5-14.5); WHITE BLOOD COUNT (AUTO) 8.2 K/uL (4.5-11.0)
[2023-07-01 23:14] LABS: ALCOHOL, BLOOD (SERUM) < 3 mg/dL (0-10)
[2023-07-01 23:21] LABS: ANION GAP 9 mmol/L (8-16); CALCIUM, TOTAL 8.5 mg/dL (8.8-10.5); CARBON DIOXIDE 24 mmol/L (22-29); CHLORIDE 106 mmol/L (98-107); GLOMERULAR FILTR. RATE CALC > 60 mL/min (>60); GLUCOSE,RANDOM 116 mg/dL (70-110); POTASSIUM 3.7 mmol/L (3.5-5.1); SODIUM SERUM 139 mmol/L (136-145); UREA NITROGEN, BLOOD 10 mg/dL (7-18)
[2023-07-01 23:27] LABS: ALANINE AMINOTRANSFERASE 38 U/L (12-78); ALBUMIN 3.1 g/dL (3.4-5.0); ALKALINE PHOSPHATASE 65 U/L (46-116); ASPARTATE AMINOTRANSFERASE 14 U/L (15-37); BILIRUBIN,TOTAL 0.2 mg/dL (0.1-1.0); TOTAL PROTEIN, SERUM 6.3 g/dL (6.4-8.2)
[2023-07-01] MEDS ORDERED: LORazepam 2 MG TABLET PO PRN (23:30)
[2023-07-01] MEDS ORDERED: ACETAMINOPHEN 500 MG TABLET PO ONE (23:30)
[2023-07-01] MEDS ORDERED: ZOLPIDEM TARTRATE 10 MG TABLET PO PRN (23:30)
[2023-07-01] MEDS ORDERED: OLANZapine 5 MG RAPDIS TABLET PO PRN (23:30)
[2023-07-02 00:07] LABS: COVID AG,FIA SOURCE NASAL SWAB
[2023-07-02 00:29] LABS: SARS-COV2 (COVID) ANTIGEN,FIA Negative (Negative)
[2023-07-02 00:46] LABS: APPEARANCE,URINE CLEAR (CLEAR); BILIRUBIN,URINE NEGATIVE (NEGATIVE); COLOR,URINE LIGHT YELLOW (YELLOW); GLUCOSE, URINE (UA) NEGATIVE (NEGATIVE); KETONES,URINE NEGATIVE (NEGATIVE); LEUKOCYTE ESTERASE ,URINE NEGATIVE (NEGATIVE); NITRATE,URINE NEGATIVE (NEGATIVE); OCCULT BLOOD,URINE NEGATIVE (NEGATIVE); PROTEIN,URINE NEGATIVE (NEGATIVE); UROBILINOGEN,URINE <=1.0 mg/dL (<=1.0)
[2023-07-02 00:51] LABS: ALCOHOL, URINE DRUG SCREEN NEGATIVE (NEGATIVE); AMPHET/METH SCREEN,URINE NEGATIVE (NEGATIVE); BARBITURATE SCREEN, URINE NEGATIVE (NEGATIVE); BENZODIAZEPINES SCREEN,URINE NEGATIVE (NEGATIVE); CANNABINOID SCREEN,URINE NEGATIVE (NEGATIVE); COCAINE SCREEN,URINE NEGATIVE (NEGATIVE); METHADONE SCREEN, URINE NEGATIVE (NEGATIVE); OPIATE SCREEN,URINE NEGATIVE (NEGATIVE); PHENCYCLIDINE SCREEN,URINE NEGATIVE (NEGATIVE)
[2023-07-02 05:21] VITALS: BP 116/68; PULSE 102; RESP 18; TEMP 97.8; O2SAT 98
[2023-07-02] MEDS ORDERED: INFLUENZA VIRUS VACCINE QVS 2023-24 (6MO+)/PF 60 MCG/0.5 ML SYRINGE IM. ONE (06:00)
[2023-07-02] MEDS ORDERED: ACETAMINOPHEN 325 MG TABLET PO PRN (21:30)
[2023-07-02] MEDS ORDERED: MAG HYDROX/AL HYDROX/SIMETH ES 30 ML SUSPENSION UDCUP PO PRN (21:30)
[2023-07-02] MEDS ORDERED: HydrOXYzine PAMOATE 50 MG CAPSULE PO PRN (21:30)
[2023-07-02] MEDS ORDERED: LOPERAMIDE HCL 2 MG CAPSULE PO PRN (21:30)
[2023-07-02] MEDS ORDERED: MAGNESIUM HYDROXIDE SUSPENSION 30 ML UDCUP PO PRN (21:30)
[2023-07-02] MEDS ORDERED: PROMETHAZINE HCL 25 MG TABLET PO PRN (21:30)
[2023-07-02] MEDS ORDERED: GuaiFENesin/D-METHORPHAN [SUGAR-FREE] 200-20MG/10 ML SYRUP UDCUP PO PRN (21:30)
[2023-07-02] MEDS ORDERED: GABAPENTIN 300 MG CAPSULE PO PRN (21:30)
[2023-07-03 02:03] VITALS: BP 115/73; PULSE 70; RESP 16; TEMP 97.8; O2SAT 96
[2023-07-03] MEDS: FOLIC ACID 1 MG TABLET PO SCH (08:17)
[2023-07-03] MEDS: SERTRALINE HCL 100 MG TABLET PO SCH (08:17)
[2023-07-03] MEDS: MULTIVITAMINS WITH MINERALS, THERAPEUTIC TABLET PO SCH (08:17)
[2023-07-03] MEDS: OMEGA-3/DHA/EPA/FISH OIL 1,000 MG CAPSULE PO SCH (08:20)
[2023-07-03] MEDS: THIAMINE 100 MG TABLET PO SCH ×2 (08:20→16:05)
[2023-07-03 08:30] VITALS: BP 105/67; PULSE 109; RESP 17; TEMP 97.3; O2SAT 99
[2023-07-03] MEDS: MELATONIN 5 MG TABLET PO SCH (20:07)
[2023-07-03] MEDS: TraZODone HCL 100 MG TABLET PO SCH (20:07)
[2023-07-03] MEDS: CloZAPine 100 MG TABLET PO SCH (20:07)
[2023-07-03] MEDS: DIVALPROEX SODIUM 500 MG ER TABLET PO SCH (20:07)
[2023-07-04 05:30] VITALS: BP 112/76; PULSE 96; RESP 18; TEMP 97.6
[2023-07-04] MEDS: MULTIVITAMINS WITH MINERALS, THERAPEUTIC TABLET PO SCH (08:26)
[2023-07-04] MEDS: FOLIC ACID 1 MG TABLET PO SCH (08:26)
[2023-07-04] MEDS: THIAMINE 100 MG TABLET PO SCH ×2 (08:27→16:16)
[2023-07-04] MEDS: SERTRALINE HCL 100 MG TABLET PO SCH (08:27)
[2023-07-04] MEDS: OMEGA-3/DHA/EPA/FISH OIL 1,000 MG CAPSULE PO SCH (08:27)
[2023-07-04 15:20] VITALS: BP 100/64; PULSE 100; RESP 18; TEMP 97.7; O2SAT 99
[2023-07-04] MEDS: DIVALPROEX SODIUM 500 MG ER TABLET PO SCH (20:08)
[2023-07-04] MEDS: CloZAPine 100 MG TABLET PO SCH (20:08)
[2023-07-04] MEDS: TraZODone HCL 100 MG TABLET PO SCH (20:08)
[2023-07-04] MEDS: MELATONIN 5 MG TABLET PO SCH (20:09)
[2023-07-04 22:05] VITALS: BP 104/66; PULSE 102; RESP 16; TEMP 97.3; O2SAT 97
[2023-07-05] MEDS: OMEGA-3/DHA/EPA/FISH OIL 1,000 MG CAPSULE PO SCH (08:41)
[2023-07-05] MEDS: THIAMINE 100 MG TABLET PO SCH ×2 (08:42→17:20)
[2023-07-05] MEDS: MULTIVITAMINS WITH MINERALS, THERAPEUTIC TABLET PO SCH (08:42)
[2023-07-05] MEDS: FOLIC ACID 1 MG TABLET PO SCH (08:42)
[2023-07-05] MEDS: SERTRALINE HCL 100 MG TABLET PO SCH (09:35)
[2023-07-05 14:14] VITALS: BP 127/104; PULSE 101; RESP 17; TEMP 97.9; O2SAT 100
[2023-07-05] MEDS: MELATONIN 5 MG TABLET PO SCH (20:25)
[2023-07-05] MEDS: TraZODone HCL 100 MG TABLET PO SCH (20:25)
[2023-07-05] MEDS: DIVALPROEX SODIUM 500 MG ER TABLET PO SCH (20:25)
[2023-07-05] MEDS: CloZAPine 100 MG TABLET PO SCH (20:25)
[2023-07-05] MEDS: OXYBUTYNIN CHLORIDE 5 MG TABLET PO SCH (20:26)
[2023-07-05 22:31] VITALS: BP 117/72; PULSE 83; TEMP 97.6
[2023-07-06] MEDS: LEVOTHYROXINE SODIUM 50 MCG TABLET PO SCH (06:56)
[2023-07-06] MEDS: OMEGA-3/DHA/EPA/FISH OIL 1,000 MG CAPSULE PO SCH (08:34)
[2023-07-06] MEDS: FOLIC ACID 1 MG TABLET PO SCH (08:34)
[2023-07-06] MEDS: MULTIVITAMINS WITH MINERALS, THERAPEUTIC TABLET PO SCH (08:34)
[2023-07-06] MEDS: SERTRALINE HCL 100 MG TABLET PO SCH (08:35)
[2023-07-06] MEDS: THIAMINE 100 MG TABLET PO SCH ×2 (08:36→16:06)
[2023-07-06 09:54] VITALS: BP 107/70; PULSE 88; RESP 18; TEMP 98.2; O2SAT 88
[2023-07-06 11:07] LABS: CLOZAPINE & NORCLOZAPINE 446 ng/mL; NORCLOZAPINE 172 ng/mL (Not Estab.)
[2023-07-06 21:27] VITALS: BP 104/72; PULSE 89; RESP 18; TEMP 97.7
[2023-07-06] MEDS: TraZODone HCL 100 MG TABLET PO SCH (21:40)
[2023-07-06] MEDS: MELATONIN 5 MG TABLET PO SCH (21:40)
[2023-07-06] MEDS: DIVALPROEX SODIUM 500 MG ER TABLET PO SCH (21:40)
[2023-07-06] MEDS: CloZAPine 100 MG TABLET PO SCH (21:40)
[2023-07-06] MEDS: OXYBUTYNIN CHLORIDE 5 MG TABLET PO SCH (21:40)
[2023-07-07] MEDS: LEVOTHYROXINE SODIUM 50 MCG TABLET PO SCH (06:36)
[2023-07-07] MEDS: FOLIC ACID 1 MG TABLET PO SCH (08:50)
[2023-07-07] MEDS: MULTIVITAMINS WITH MINERALS, THERAPEUTIC TABLET PO SCH (08:50)
[2023-07-07] MEDS: OMEGA-3/DHA/EPA/FISH OIL 1,000 MG CAPSULE PO SCH (08:50)
[2023-07-07] MEDS: THIAMINE 100 MG TABLET PO SCH ×2 (08:50→16:37)
[2023-07-07] MEDS: SERTRALINE HCL 100 MG TABLET PO SCH (08:51)
[2023-07-07 10:04] VITALS: BP 111/73; PULSE 94; RESP 16; TEMP 98; O2SAT 100
[2023-07-07] MEDS ORDERED: OMEG-135 PO (19:40)
[2023-07-07] MEDS ORDERED: MELA5TAB40 PO (19:40)
[2023-07-07] MEDS ORDERED: CLOZ100T61 PO (19:40)
[2023-07-07] MEDS ORDERED: LEVO50 PO (19:40)
[2023-07-07] MEDS ORDERED: DIVA500T69 PO (19:40)
[2023-07-07] MEDS ORDERED: OXYB5TAB20 PO (19:40)
[2023-07-07] MEDS ORDERED: TRAZ-257 PO (19:40)
[2023-07-07] MEDS ORDERED: SERT-440 PO (19:40)
[2023-07-07 20:05] VITALS: BP 118/75; PULSE 99; RESP 17; TEMP 97.9; O2SAT 98
[2023-07-07] MEDS: CloZAPine 100 MG TABLET PO SCH (20:22)
[2023-07-07] MEDS: MELATONIN 5 MG TABLET PO SCH (20:22)
[2023-07-07] MEDS: DIVALPROEX SODIUM 500 MG ER TABLET PO SCH (20:23)
[2023-07-07] MEDS: TraZODone HCL 100 MG TABLET PO SCH (20:23)
[2023-07-07] MEDS: OXYBUTYNIN CHLORIDE 5 MG TABLET PO SCH (20:23)
[2023-07-08] MEDS: LEVOTHYROXINE SODIUM 50 MCG TABLET PO SCH (05:53)
[2023-07-08 08:24] VITALS: BP 105/64; PULSE 95; RESP 16; TEMP 97.6; O2SAT 99
[2023-07-08] MEDS: OMEGA-3/DHA/EPA/FISH OIL 1,000 MG CAPSULE PO SCH (08:27)
[2023-07-08] MEDS: MULTIVITAMINS WITH MINERALS, THERAPEUTIC TABLET PO SCH (08:28)
[2023-07-08] MEDS: THIAMINE 100 MG TABLET PO SCH (08:28)
[2023-07-08] MEDS: SERTRALINE HCL 100 MG TABLET PO SCH (08:28)
[2023-07-08] MEDS: FOLIC ACID 1 MG TABLET PO SCH (08:28)
== END 2023-07-08 11:45 | disposition home or self-care (01) | DRG 750 ==
LOC: EMS 22:35 → B3A 07-02 01:03
PROVIDERS: ADMIT Psychiatry & Neurology Psychiatry; ATTEND Psychiatry & Neurology Psychiatry
DX: F25.1 Schizoaffective disorder, depressive type (principal); R45.851 Suicidal ideations; D64.9 Anemia, unspecified; M19.079 Primary osteoarthritis, unspecified ankle and foot; E03.9 Hypothyroidism, unspecified; R32 Unspecified urinary incontinence; Z20.822 Contact with and (suspected) exposure to COVID-19; F41.9 Anxiety disorder, unspecified; K21.9 Gastro-esophageal reflux disease without esophagitis; Z55.9 Problems related to education and literacy, unspecified; Z65.3 Problems related to other legal circumstances; Z79.899 Other long term (current) drug therapy; Z63.9 Problem related to primary support group, unspecified; Z86.16 Personal history of COVID-19; Z59.9 Problem related to housing and economic circumstances, unspecified; Z91.51 Personal history of suicidal behavior; Z91.011 Allergy to milk products; Z91.018 Allergy to other foods
CPT/HCPCS: 80053; 80159; 80164; 80307; 81003; 84703; 85025; 87081; 90686; 99285; G0480; Q9967

== ENCOUNTER 2023-07-17 21:42 | Inpatient (IN) | payer MEDICAID, OTHER ==
[~2023-07-17] VITALS: Ht 167.6 cm; Wt 73.5 kg
[~2023-07-17 21:42] MED LIST changes: -GABA-1201 PO; +LEVO50 PO; +OXYB5TAB20 PO; -SERT-439 PO; +SERT-440 PO
[2023-07-17 22:43] LABS: BASOPHILS % (AUTO) 0.6 % (0.0-2.0); EOSINOPHILS % (AUTO) 1.5 % (1.0-6.0); HEMATOCRIT 33.6 % (36-46); HEMOGLOBIN 11.3 g/dL (12.0-16.0); LYMPHOCYTES # (AUTO) 3.3 K/uL (1.0-4.8); LYMPHOCYTES % (AUTO) 45.7 % (22.0-44.0); MEAN CORPUSCULAR HGB CONC 33.6 G/dL (31.0-37.0); MEAN CORPUSCULAR VOLUME 92 fL (80-100); MONOCYTES # (AUTO) 0.6 K/uL (0.1-1.0); MONOCYTES % (AUTO) 8.3 % (2.0-9.0); NEUTROPHILS # (AUTO) 3.2 K/uL (1.8-7.7); NEUTROPHILS % (AUTO) 43.9 % (40.0-70.0); PLATELET COUNT (AUTO) 222 K/uL (150-450); RED BLOOD CELL COUNT(AUTO) 3.64 MIL/uL (4.00-5.20); RED CELL DISTRIBUTION WIDTH 14.5 % (11.5-14.5); WHITE BLOOD COUNT (AUTO) 7.3 K/uL (4.5-11.0)
[2023-07-17] MEDS ORDERED: OLANZapine 5 MG RAPDIS TABLET PO PRN (22:45)
[2023-07-17] MEDS ORDERED: ZOLPIDEM TARTRATE 10 MG TABLET PO PRN (22:45)
[2023-07-17] MEDS ORDERED: LORazepam 2 MG TABLET PO PRN (22:45)
[2023-07-17 22:52] LABS: COVID AG,FIA SOURCE NASAL SWAB
[2023-07-17 22:53] LABS: ANION GAP 9 mmol/L (8-16); CALCIUM, TOTAL 9.2 mg/dL (8.8-10.5); CARBON DIOXIDE 27 mmol/L (22-29); CHLORIDE 105 mmol/L (98-107); CREATININE 0.68 mg/dL (0.60-1.30); GLOMERULAR FILTR. RATE CALC > 60 mL/min (>60); GLUCOSE,RANDOM 100 mg/dL (70-110); POTASSIUM 3.3 mmol/L (3.5-5.1); SODIUM SERUM 141 mmol/L (136-145); UREA NITROGEN, BLOOD 12 mg/dL (7-18)
[2023-07-17 23:04] LABS: ALANINE AMINOTRANSFERASE 20 U/L (12-78); ALBUMIN 3.1 g/dL (3.4-5.0); ALKALINE PHOSPHATASE 54 U/L (46-116); ASPARTATE AMINOTRANSFERASE 6 U/L (15-37); BILIRUBIN,TOTAL 0.2 mg/dL (0.1-1.0); HCG,QUANTITATIVE < 1 mIU/mL (0-6); TOTAL PROTEIN, SERUM 6.5 g/dL (6.4-8.2); VALPROIC ACID 92 mcg/mL (50-100)
[2023-07-17 23:16] LABS: SARS-COV2 (COVID) ANTIGEN,FIA Negative (Negative)
[2023-07-17 23:27] LABS: ALCOHOL, BLOOD (SERUM) < 3 mg/dL (0-10)
[2023-07-18 00:59] LABS: APPEARANCE,URINE CLEAR (CLEAR); BILIRUBIN,URINE NEGATIVE (NEGATIVE); COLOR,URINE COLORLESS (YELLOW); GLUCOSE, URINE (UA) NEGATIVE (NEGATIVE); KETONES,URINE NEGATIVE (NEGATIVE); LEUKOCYTE ESTERASE ,URINE NEGATIVE (NEGATIVE); NITRATE,URINE NEGATIVE (NEGATIVE); OCCULT BLOOD,URINE NEGATIVE (NEGATIVE); PH,URINE 6.5 (5.0-8.0); PROTEIN,URINE NEGATIVE (NEGATIVE); SPECIFIC GRAVITIY, URINE 1.007 (1.003-1.030); UROBILINOGEN,URINE <=1.0 mg/dL (<=1.0)
[2023-07-18 01:01] LABS: PH,URINE DRUG SCREEN 6.5 (5.0-8.0)
[2023-07-18 01:04] LABS: AMPHET/METH SCREEN,URINE NEGATIVE (NEGATIVE); BARBITURATE SCREEN, URINE NEGATIVE (NEGATIVE); BENZODIAZEPINES SCREEN,URINE NEGATIVE (NEGATIVE); CANNABINOID SCREEN,URINE NEGATIVE (NEGATIVE); COCAINE SCREEN,URINE NEGATIVE (NEGATIVE); METHADONE SCREEN, URINE NEGATIVE (NEGATIVE); OPIATE SCREEN,URINE NEGATIVE (NEGATIVE); PHENCYCLIDINE SCREEN,URINE NEGATIVE (NEGATIVE)
[2023-07-18 01:11] LABS: ALCOHOL, URINE DRUG SCREEN NEGATIVE (NEGATIVE)
[2023-07-18 02:33] VITALS: BP 105/73; PULSE 102; RESP 18; TEMP 97.4; O2SAT 96
[2023-07-18] MEDS ORDERED: INFLUENZA VIRUS VACCINE QVS 2023-24 (6MO+)/PF 60 MCG/0.5 ML SYRINGE IM. ONE (05:00)
[2023-07-18] MEDS: LEVOTHYROXINE SODIUM 50 MCG TABLET PO SCH (06:30)
[2023-07-18 08:02] VITALS: BP 103/66; PULSE 91; RESP 17; TEMP 97.3; O2SAT 99
[2023-07-18] MEDS ORDERED: POTASSIUM CHLORIDE 20 MEQ ER TABLET PO ONE (09:00)
[2023-07-18 20:41] VITALS: BP 136/75; PULSE 95; RESP 18; TEMP 98; O2SAT 97
[2023-07-19] MEDS: LEVOTHYROXINE SODIUM 50 MCG TABLET PO SCH (06:51)
[2023-07-19 08:15] VITALS: BP 105/71; PULSE 100; RESP 17; TEMP 97.5; O2SAT 95
[2023-07-19] MEDS ORDERED: GuaiFENesin/D-METHORPHAN [SUGAR-FREE] 200-20MG/10 ML SYRUP UDCUP PO PRN (11:15)
[2023-07-19] MEDS ORDERED: MAGNESIUM HYDROXIDE SUSPENSION 30 ML UDCUP PO PRN (11:15)
[2023-07-19] MEDS ORDERED: SERTRALINE HCL 100 MG TABLET PO ONE (11:15)
[2023-07-19] MEDS ORDERED: MAG HYDROX/ALUMINUM HYD/SIMETH ES 30 ML SUSPENSION UDCUP PO PRN (11:15)
[2023-07-19] MEDS ORDERED: GABAPENTIN 300 MG CAPSULE PO PRN (11:15)
[2023-07-19] MEDS ORDERED: LOPERAMIDE HCL 2 MG CAPSULE PO PRN (11:15)
[2023-07-19] MEDS ORDERED: PROMETHAZINE HCL 25 MG TABLET PO PRN (11:15)
[2023-07-19] MEDS ORDERED: ACETAMINOPHEN 325 MG TABLET PO PRN (11:15)
[2023-07-19] MEDS ORDERED: HALOPERIDOL 5 MG TABLET PO PRN (15:30)
[2023-07-19] MEDS: THIAMINE 100 MG TABLET PO SCH (16:01)
[2023-07-19] MEDS: LITHIUM CARBONATE 300 MG CAPSULE PO SCH (16:01)
[2023-07-19] MEDS: HydrOXYzine PAMOATE 50 MG CAPSULE PO PRN (19:12)
[2023-07-19] MEDS: TraZODone HCL 100 MG TABLET PO SCH (20:00)
[2023-07-19] MEDS: OXYBUTYNIN CHLORIDE 5 MG TABLET PO SCH (20:01)
[2023-07-19] MEDS: CloZAPine 100 MG TABLET PO SCH (20:01)
[2023-07-19 20:31] VITALS: BP 122/71; PULSE 100; RESP 20; TEMP 98; O2SAT 99
[2023-07-19] MEDS ORDERED: HALOPERIDOL 5 MG TABLET PO SCH (21:00)
[2023-07-19] MEDS ORDERED: DIVALPROEX SODIUM 500 MG ER TABLET PO SCH (21:00)
[2023-07-20] MEDS: LEVOTHYROXINE SODIUM 50 MCG TABLET PO SCH (06:23)
[2023-07-20] MEDS: LITHIUM CARBONATE 300 MG CAPSULE PO SCH ×3 (06:27→16:25)
[2023-07-20] MEDS: MULTIVITAMINS WITH MINERALS, THERAPEUTIC TABLET PO SCH (08:21)
[2023-07-20] MEDS: THIAMINE 100 MG TABLET PO SCH ×2 (08:21→16:25)
[2023-07-20] MEDS: FOLIC ACID 1 MG TABLET PO SCH (08:21)
[2023-07-20] MEDS: SERTRALINE HCL 100 MG TABLET PO SCH (08:21)
[2023-07-20 08:39] VITALS: BP 102/65; PULSE 71; RESP 16; TEMP 97.6; O2SAT 97
[2023-07-20] MEDS: HALOPERIDOL 10 MG TABLET PO SCH (20:02)
[2023-07-20] MEDS: TraZODone HCL 100 MG TABLET PO SCH (20:03)
[2023-07-20] MEDS: OXYBUTYNIN CHLORIDE 5 MG TABLET PO SCH (20:03)
[2023-07-20] MEDS: CloZAPine 100 MG TABLET PO SCH (20:03)
[2023-07-20 22:28] VITALS: BP 114/75; PULSE 106; RESP 18; TEMP 97.9
[2023-07-21] MEDS: LEVOTHYROXINE SODIUM 50 MCG TABLET PO SCH (06:59)
[2023-07-21] MEDS: LITHIUM CARBONATE 300 MG CAPSULE PO SCH ×3 (06:59→16:21)
[2023-07-21] MEDS: FOLIC ACID 1 MG TABLET PO SCH (08:07)
[2023-07-21] MEDS: THIAMINE 100 MG TABLET PO SCH ×2 (08:07→16:21)
[2023-07-21] MEDS: HydrOXYzine PAMOATE 50 MG CAPSULE PO PRN (08:08)
[2023-07-21] MEDS: MULTIVITAMINS WITH MINERALS, THERAPEUTIC TABLET PO SCH (08:08)
[2023-07-21] MEDS: SERTRALINE HCL 100 MG TABLET PO SCH (08:08)
[2023-07-21 08:16] VITALS: BP 100/61; PULSE 78; RESP 16; TEMP 97.9; O2SAT 97
[2023-07-21] MEDS: OXYBUTYNIN CHLORIDE 5 MG TABLET PO SCH (20:24)
[2023-07-21] MEDS: CloZAPine 100 MG TABLET PO SCH (20:24)
[2023-07-21] MEDS: TraZODone HCL 100 MG TABLET PO SCH (20:25)
[2023-07-21] MEDS: HALOPERIDOL 10 MG TABLET PO SCH (20:25)
[2023-07-22] MEDS: LEVOTHYROXINE SODIUM 50 MCG TABLET PO SCH (06:42)
[2023-07-22] MEDS: LITHIUM CARBONATE 300 MG CAPSULE PO SCH ×3 (06:42→16:57)
[2023-07-22] MEDS: FOLIC ACID 1 MG TABLET PO SCH (08:07)
[2023-07-22] MEDS: THIAMINE 100 MG TABLET PO SCH ×2 (08:07→16:57)
[2023-07-22] MEDS: SERTRALINE HCL 100 MG TABLET PO SCH (08:07)
[2023-07-22] MEDS: MULTIVITAMINS WITH MINERALS, THERAPEUTIC TABLET PO SCH (08:09)
[2023-07-22 08:18] VITALS: BP 100/62; PULSE 87; RESP 16; TEMP 97.6; O2SAT 99
[2023-07-22] MEDS ORDERED: TRAZ-257 PO (13:45)
[2023-07-22] MEDS ORDERED: CLOZ100T61 PO (13:45)
[2023-07-22] MEDS ORDERED: LITH300C3 PO (13:45)
[2023-07-22] MEDS ORDERED: HALO5TAB23 PO (13:45)
[2023-07-22] MEDS ORDERED: OMEG-135 PO (13:45)
[2023-07-22] MEDS ORDERED: MELA5TAB40 PO (13:45)
[2023-07-22] MEDS ORDERED: SERT-440 PO (13:45)
[2023-07-22 15:07] LABS: CLOZAPINE & NORCLOZAPINE 546 ng/mL; NORCLOZAPINE 133 ng/mL (Not Estab.)
[2023-07-22] MEDS: TraZODone HCL 100 MG TABLET PO SCH (20:04)
[2023-07-22] MEDS: OXYBUTYNIN CHLORIDE 5 MG TABLET PO SCH (20:04)
[2023-07-22 20:13] VITALS: BP 130/81; PULSE 100; RESP 18; TEMP 97.7; O2SAT 98
[2023-07-22] MEDS ORDERED: HALOPERIDOL 5 MG TABLET PO SCH (21:00)
[2023-07-22] MEDS ORDERED: MELATONIN 5 MG TABLET PO SCH (21:00)
[2023-07-22] MEDS ORDERED: CloZAPine 100 MG TABLET PO SCH (21:00)
[2023-07-23] MEDS: LITHIUM CARBONATE 300 MG CAPSULE PO SCH (05:51)
[2023-07-23] MEDS: LEVOTHYROXINE SODIUM 50 MCG TABLET PO SCH (05:51)
[2023-07-23 08:06] VITALS: BP 97/70; PULSE 83; RESP 17; TEMP 97.6; O2SAT 100
[2023-07-23] MEDS: SERTRALINE HCL 100 MG TABLET PO SCH (08:13)
[2023-07-23] MEDS: THIAMINE 100 MG TABLET PO SCH (08:21)
[2023-07-23] MEDS: MULTIVITAMINS WITH MINERALS, THERAPEUTIC TABLET PO SCH (08:21)
[2023-07-23] MEDS: FOLIC ACID 1 MG TABLET PO SCH (08:21)
[2023-07-23] MEDS ORDERED: OMEGA-3/DHA/EPA/FISH OIL 1,000 MG CAPSULE PO SCH (09:00)
[2023-07-23] MEDS ORDERED: OXYB-34 PO (09:31)
[2023-07-23] MEDS ORDERED: LEVO50 PO (09:31)
== END 2023-07-23 11:55 | disposition home or self-care (01) | DRG 750 ==
LOC: EMS 21:43 → B3A 07-18 00:01
PROVIDERS: ADMIT Psychiatry & Neurology Psychiatry; ATTEND Psychiatry & Neurology Psychiatry
DX: F25.1 Schizoaffective disorder, depressive type (principal); R45.851 Suicidal ideations; D64.9 Anemia, unspecified; E03.9 Hypothyroidism, unspecified; F31.9 Bipolar disorder, unspecified; K21.9 Gastro-esophageal reflux disease without esophagitis; F41.9 Anxiety disorder, unspecified; E87.6 Hypokalemia; K59.00 Constipation, unspecified; M19.079 Primary osteoarthritis, unspecified ankle and foot; Z20.822 Contact with and (suspected) exposure to COVID-19; R32 Unspecified urinary incontinence; Z86.16 Personal history of COVID-19; Z91.199 Patient's noncompliance with other medical treatment and regimen due to unspecified reason; Z79.899 Other long term (current) drug therapy; Z91.011 Allergy to milk products; Z91.018 Allergy to other foods
CPT/HCPCS: 80053; 80159; 80164; 80307; 81003; 84132; 84702; 85025; 87081; 99285; G0480; Q9967

== ENCOUNTER 2023-08-10 20:47 | Inpatient (IN) | payer MEDICAID, OTHER ==
[~2023-08-10] VITALS: Ht 167.6 cm; Wt 73.2 kg
[~2023-08-10 20:47] MED LIST changes: -DIVA500T69 PO; +HALO5TAB23 PO; +LITH300C3 PO; +OXYB-34 PO; -OXYB5TAB20 PO
[2023-08-10 21:32] LABS: PH,URINE DRUG SCREEN 6.5 (5.0-8.0)
[2023-08-10 21:42] LABS: BASOPHILS % (AUTO) 0.9 % (0.0-2.0); EOSINOPHILS % (AUTO) 3.5 % (1.0-6.0); HEMATOCRIT 36.7 % (36-46); HEMOGLOBIN 12.3 g/dL (12.0-16.0); LYMPHOCYTES # (AUTO) 3.2 K/uL (1.0-4.8); LYMPHOCYTES % (AUTO) 36.5 % (22.0-44.0); MEAN CORPUSCULAR HEMOGLOBIN 31.2 pg (26.0-34.0); MEAN CORPUSCULAR HGB CONC 33.6 G/dL (31.0-37.0); MEAN CORPUSCULAR VOLUME 93 fL (80-100); MONOCYTES # (AUTO) 0.9 K/uL (0.1-1.0); MONOCYTES % (AUTO) 9.8 % (2.0-9.0); NEUTROPHILS # (AUTO) 4.3 K/uL (1.8-7.7); NEUTROPHILS % (AUTO) 49.3 % (40.0-70.0); PLATELET COUNT (AUTO) 338 K/uL (150-450); RED BLOOD CELL COUNT(AUTO) 3.96 MIL/uL (4.00-5.20); RED CELL DISTRIBUTION WIDTH 14.1 % (11.5-14.5); WHITE BLOOD COUNT (AUTO) 8.7 K/uL (4.5-11.0)
[2023-08-10 21:43] LABS: AMPHET/METH SCREEN,URINE NEGATIVE (NEGATIVE); BARBITURATE SCREEN, URINE NEGATIVE (NEGATIVE); BENZODIAZEPINES SCREEN,URINE NEGATIVE (NEGATIVE); CANNABINOID SCREEN,URINE NEGATIVE (NEGATIVE); COCAINE SCREEN,URINE NEGATIVE (NEGATIVE); METHADONE SCREEN, URINE NEGATIVE (NEGATIVE); OPIATE SCREEN,URINE NEGATIVE (NEGATIVE); PHENCYCLIDINE SCREEN,URINE NEGATIVE (NEGATIVE)
[2023-08-10 21:50] LABS: ALCOHOL, URINE DRUG SCREEN NEGATIVE (NEGATIVE)
[2023-08-10 21:53] LABS: ANION GAP 7 mmol/L (8-16); CALCIUM, TOTAL 9.7 mg/dL (8.8-10.5); CARBON DIOXIDE 24 mmol/L (22-29); CHLORIDE 106 mmol/L (98-107); CREATININE 0.95 mg/dL (0.60-1.30); GLOMERULAR FILTR. RATE CALC > 60 mL/min (>60); GLUCOSE,RANDOM 120 mg/dL (70-110); POTASSIUM 3.3 mmol/L (3.5-5.1); SODIUM SERUM 137 mmol/L (136-145); UREA NITROGEN, BLOOD 10 mg/dL (7-18)
[2023-08-10 22:04] LABS: ALKALINE PHOSPHATASE 95 U/L (46-116); ASPARTATE AMINOTRANSFERASE 19 U/L (15-37); BILIRUBIN,TOTAL 0.5 mg/dL (0.1-1.0)
[2023-08-10 22:05] LABS: ALANINE AMINOTRANSFERASE 59 U/L (12-78); ALBUMIN 3.7 g/dL (3.4-5.0); HCG,QUANTITATIVE < 1 mIU/mL (0-6); TOTAL PROTEIN, SERUM 7.5 g/dL (6.4-8.2)
[2023-08-10 22:32] LABS: ALCOHOL, BLOOD (SERUM) < 3 mg/dL (0-10)
[2023-08-11] MEDS ORDERED: ACETAMINOPHEN 325 MG TABLET PO PRN ×2 (01:15→07:00)
[2023-08-11 02:13] LABS: THYROID STIMULATING HORMONE 15.98 uIU/mL (0.36-3.74)
[2023-08-11] MEDS ORDERED: POTASSIUM CHLORIDE 20 MEQ ER TABLET PO ONE ×2 (02:45→09:15)
[2023-08-11 02:54] LABS: COVID AG,FIA SOURCE NASAL SWAB
[2023-08-11 03:11] LABS: SARS-COV2 (COVID) ANTIGEN,FIA Negative (Negative)
[2023-08-11] MEDS ORDERED: TraZODone HCL 50 MG TABLET PO ONE (04:00)
[2023-08-11] MEDS ORDERED: LORazepam 2 MG TABLET PO PRN (05:00)
[2023-08-11] MEDS ORDERED: HALOPERIDOL 5 MG TABLET PO PRN (05:00)
[2023-08-11] MEDS ORDERED: ZOLPIDEM TARTRATE 10 MG TABLET PO PRN (05:00)
[2023-08-11] MEDS ORDERED: INFLUENZA VIRUS VACCINE QVS 2023-24 (6MO+)/PF 60 MCG/0.5 ML SYRINGE IM. ONE (06:00)
[2023-08-11 06:15] VITALS: BP 128/85; PULSE 94; RESP 18; TEMP 97.7; O2SAT 96
[2023-08-11] MEDS ORDERED: LOPERAMIDE HCL 2 MG CAPSULE PO PRN (07:00)
[2023-08-11] MEDS ORDERED: HydrOXYzine PAMOATE 50 MG CAPSULE PO PRN (07:00)
[2023-08-11] MEDS ORDERED: MAG HYDROX/ALUMINUM HYD/SIMETH ES 30 ML SUSPENSION UDCUP PO PRN (07:00)
[2023-08-11] MEDS ORDERED: GuaiFENesin/D-METHORPHAN [SUGAR-FREE] 200-20MG/10 ML SYRUP UDCUP PO PRN (07:00)
[2023-08-11] MEDS ORDERED: PROMETHAZINE HCL 25 MG TABLET PO PRN (07:00)
[2023-08-11] MEDS ORDERED: MAGNESIUM HYDROXIDE SUSPENSION 30 ML UDCUP PO PRN (07:00)
[2023-08-11 08:07] VITALS: BP 122/81; PULSE 88; RESP 16; TEMP 97.6; O2SAT 97
[2023-08-11] MEDS: OMEGA-3/DHA/EPA/FISH OIL 1,000 MG CAPSULE PO SCH (08:10)
[2023-08-11] MEDS: MULTIVITAMINS WITH MINERALS, THERAPEUTIC TABLET PO SCH (08:10)
[2023-08-11] MEDS: FOLIC ACID 1 MG TABLET PO SCH (08:10)
[2023-08-11] MEDS: LITHIUM CARBONATE 300 MG CAPSULE PO SCH ×3 (08:10→16:47)
[2023-08-11] MEDS: SERTRALINE HCL 100 MG TABLET PO SCH (08:10)
[2023-08-11] MEDS: THIAMINE 100 MG TABLET PO SCH ×2 (08:10→16:47)
[2023-08-11 09:03] LABS: ALANINE AMINOTRANSFERASE 55 U/L (12-78); ALBUMIN 3.4 g/dL (3.4-5.0); ALKALINE PHOSPHATASE 88 U/L (46-116); ASPARTATE AMINOTRANSFERASE 21 U/L (15-37); BILIRUBIN,TOTAL 0.5 mg/dL (0.1-1.0); CALCIUM, TOTAL 9.3 mg/dL (8.8-10.5); CARBON DIOXIDE 26 mmol/L (22-29); CHLORIDE 106 mmol/L (98-107); CREATININE 0.91 mg/dL (0.60-1.30); GLOMERULAR FILTR. RATE CALC > 60 mL/min (>60); GLUCOSE,RANDOM 98 mg/dL (70-110); POTASSIUM 4.2 mmol/L (3.5-5.1); TOTAL PROTEIN, SERUM 7.1 g/dL (6.4-8.2); UREA NITROGEN, BLOOD 9 mg/dL (7-18)
[2023-08-11 09:12] LABS: ANION GAP 7 mmol/L (8-16); SODIUM SERUM 139 mmol/L (136-145)
[2023-08-11] MEDS: LEVOTHYROXINE SODIUM 50 MCG TABLET PO SCH (09:28)
[2023-08-11] MEDS: CloZAPine 100 MG TABLET PO SCH (20:19)
[2023-08-11] MEDS: HALOPERIDOL 5 MG TABLET PO SCH (20:20)
[2023-08-11] MEDS: OXYBUTYNIN CHLORIDE 5 MG ER TABLET PO SCH (20:20)
[2023-08-11] MEDS: TraZODone HCL 100 MG TABLET PO SCH (20:20)
[2023-08-11 20:39] VITALS: BP 110/72; PULSE 100; RESP 18; TEMP 97.9; O2SAT 97
[2023-08-11] MEDS: MELATONIN 5 MG TABLET PO SCH (21:26)
[2023-08-12] MEDS: LEVOTHYROXINE SODIUM 50 MCG TABLET PO SCH (06:34)
[2023-08-12 08:02] LABS: HEMOGLOBIN A1C 4.9 % (3.8-5.6)
[2023-08-12] MEDS: SERTRALINE HCL 100 MG TABLET PO SCH (08:08)
[2023-08-12] MEDS: THIAMINE 100 MG TABLET PO SCH ×2 (08:08→16:32)
[2023-08-12] MEDS: LITHIUM CARBONATE 300 MG CAPSULE PO SCH ×3 (08:09→16:32)
[2023-08-12] MEDS: FOLIC ACID 1 MG TABLET PO SCH (08:09)
[2023-08-12] MEDS: MULTIVITAMINS WITH MINERALS, THERAPEUTIC TABLET PO SCH (08:09)
[2023-08-12] MEDS: OMEGA-3/DHA/EPA/FISH OIL 1,000 MG CAPSULE PO SCH (08:09)
[2023-08-12 08:15] LABS: CHOL/HDL RATIO 1.8 (3.9-5.7); FREE T4 (FREE THYROXINE) 0.88 ng/dL (0.76-1.46); THYROID STIMULATING HORMONE 5.6 uIU/mL (0.36-3.74)
[2023-08-12 08:20] VITALS: BP 106/62; PULSE 81; RESP 16; TEMP 97.6; O2SAT 97
[2023-08-12 08:27] LABS: LITHIUM 0.87 mmol/L (0.60-1.20)
[2023-08-12 20:01] VITALS: BP 110/72; PULSE 120; RESP 18; TEMP 98.1; O2SAT 97
[2023-08-12] MEDS: OXYBUTYNIN CHLORIDE 5 MG ER TABLET PO SCH (20:36)
[2023-08-12] MEDS: TraZODone HCL 100 MG TABLET PO SCH (20:36)
[2023-08-12] MEDS: MELATONIN 5 MG TABLET PO SCH (20:36)
[2023-08-12] MEDS: HALOPERIDOL 5 MG TABLET PO SCH (20:37)
[2023-08-12] MEDS: CloZAPine 100 MG TABLET PO SCH (20:37)
[2023-08-13] MEDS: LEVOTHYROXINE SODIUM 50 MCG TABLET PO SCH (06:29)
[2023-08-13] MEDS: THIAMINE 100 MG TABLET PO SCH (08:07)
[2023-08-13] MEDS: OMEGA-3/DHA/EPA/FISH OIL 1,000 MG CAPSULE PO SCH (08:07)
[2023-08-13] MEDS: SERTRALINE HCL 100 MG TABLET PO SCH (08:07)
[2023-08-13] MEDS: LITHIUM CARBONATE 300 MG CAPSULE PO SCH ×2 (08:07→12:12)
[2023-08-13] MEDS: FOLIC ACID 1 MG TABLET PO SCH (08:07)
[2023-08-13] MEDS: MULTIVITAMINS WITH MINERALS, THERAPEUTIC TABLET PO SCH (08:07)
[2023-08-13 08:10] VITALS: BP 91/56; PULSE 78; RESP 16; TEMP 96
[2023-08-13 08:12] LABS: ANION GAP 4 mmol/L (8-16); CARBON DIOXIDE 27 mmol/L (22-29); CHLORIDE 106 mmol/L (98-107); GLOMERULAR FILTR. RATE CALC > 60 mL/min (>60); GLUCOSE,RANDOM 87 mg/dL (70-110); POTASSIUM 3.9 mmol/L (3.5-5.1); SODIUM SERUM 137 mmol/L (136-145); UREA NITROGEN, BLOOD 19 mg/dL (7-18)
[2023-08-13] MEDS ORDERED: SERT-440 PO (13:42)
[2023-08-13] MEDS ORDERED: TRAZ-257 PO (13:42)
[2023-08-13] MEDS ORDERED: CLOZ100T61 PO (13:42)
[2023-08-13] MEDS ORDERED: OMEG-135 PO (13:42)
[2023-08-13] MEDS ORDERED: LITH300C3 PO (13:42)
[2023-08-13] MEDS ORDERED: MELA5TAB40 PO (13:42)
[2023-08-13] MEDS ORDERED: HALO5TAB23 PO (13:42)
[2023-08-13] MEDS ORDERED: NALT50TA PO (13:44)
[2023-08-16 10:07] LABS: CLOZAPINE & NORCLOZAPINE 755 ng/mL; NORCLOZAPINE 237 ng/mL (Not Estab.)
== END 2023-08-13 16:13 | disposition home or self-care (01) | DRG 750 ==
LOC: EMS 21:11 → B3A 08-11 03:27 → UNDOADMIN 08-11 03:27 → B3A 08-11 05:27
PROVIDERS: ADMIT Psychiatry & Neurology Psychiatry; ATTEND Psychiatry & Neurology Psychiatry
PROC: GZHZZZZ Group Psychotherapy (ICD-10-PCS; principal; 2023-08-11)
DX: F25.1 Schizoaffective disorder, depressive type (principal); D64.9 Anemia, unspecified; E03.9 Hypothyroidism, unspecified; F17.200 Nicotine dependence, unspecified, uncomplicated; E87.6 Hypokalemia; K21.9 Gastro-esophageal reflux disease without esophagitis; J44.9 Chronic obstructive pulmonary disease, unspecified; F32.9 Major depressive disorder, single episode, unspecified; M19.079 Primary osteoarthritis, unspecified ankle and foot; Z20.822 Contact with and (suspected) exposure to COVID-19; R32 Unspecified urinary incontinence; K59.00 Constipation, unspecified; Z79.899 Other long term (current) drug therapy; Z91.011 Allergy to milk products; Z91.018 Allergy to other foods
CPT/HCPCS: 80048; 80053; 80061; 80159; 80173; 80178; 80307; 83036; 84439; 84443; 84702; 85025; 87081; 99285; G0480; Q9967

== ENCOUNTER 2023-08-30 18:14 | Inpatient (IN) | payer MEDICAID, OTHER ==
[~2023-08-30] VITALS: Ht 167.6 cm; Wt 71.3 kg
[~2023-08-30 18:14] MED LIST changes: +LEVE500T20 PO; -LEVO50 PO; +NALT50TA PO; -OXYB-34 PO
[2023-08-30 19:06] LABS: BASOPHILS % (AUTO) 0.6 % (0.0-2.0); EOSINOPHILS % (AUTO) 0.8 % (1.0-6.0); HEMATOCRIT 38.6 % (36-46); HEMOGLOBIN 12.8 g/dL (12.0-16.0); LYMPHOCYTES # (AUTO) 2.9 K/uL (1.0-4.8); LYMPHOCYTES % (AUTO) 24.7 % (22.0-44.0); MEAN CORPUSCULAR HEMOGLOBIN 30.4 pg (26.0-34.0); MEAN CORPUSCULAR HGB CONC 33.1 G/dL (31.0-37.0); MEAN CORPUSCULAR VOLUME 92 fL (80-100); MONOCYTES # (AUTO) 0.8 K/uL (0.1-1.0); MONOCYTES % (AUTO) 6.5 % (2.0-9.0); NEUTROPHILS % (AUTO) 67.4 % (40.0-70.0); PLATELET COUNT (AUTO) 383 K/uL (150-450); WHITE BLOOD COUNT (AUTO) 11.9 K/uL (4.5-11.0)
[2023-08-30 19:18] LABS: ANION GAP 4 mmol/L (8-16); CALCIUM, TOTAL 9.8 mg/dL (8.8-10.5); CARBON DIOXIDE 27 mmol/L (22-29); CHLORIDE 105 mmol/L (98-107); GLOMERULAR FILTR. RATE CALC > 60 mL/min (>60); GLUCOSE,RANDOM 125 mg/dL (70-110); POTASSIUM 3.8 mmol/L (3.5-5.1); SODIUM SERUM 136 mmol/L (136-145); UREA NITROGEN, BLOOD 11 mg/dL (7-18)
[2023-08-30 19:29] LABS: ALANINE AMINOTRANSFERASE 166 U/L (12-78); ALBUMIN 3.7 g/dL (3.4-5.0); ALKALINE PHOSPHATASE 120 U/L (46-116); ASPARTATE AMINOTRANSFERASE 53 U/L (15-37); BILIRUBIN,TOTAL 0.4 mg/dL (0.1-1.0); HCG,QUANTITATIVE < 1 mIU/mL (0-6); TOTAL PROTEIN, SERUM 7.9 g/dL (6.4-8.2)
[2023-08-30 19:36] LABS: ALCOHOL, BLOOD (SERUM) < 3 mg/dL (0-10)
[2023-08-30 20:15] VITALS: BP 135/89; PULSE 108; RESP 20; TEMP 97.5
[2023-08-30] MEDS ORDERED: MAGNESIUM HYDROXIDE SUSPENSION 30 ML UDCUP PO PRN (20:15)
[2023-08-30] MEDS ORDERED: ACETAMINOPHEN 325 MG TABLET PO PRN (20:15)
[2023-08-30] MEDS ORDERED: PROMETHAZINE HCL 25 MG TABLET PO PRN (20:15)
[2023-08-30] MEDS ORDERED: MAG HYDROX/ALUMINUM HYD/SIMETH ES 30 ML SUSPENSION UDCUP PO PRN (20:15)
[2023-08-30] MEDS ORDERED: LOPERAMIDE HCL 2 MG CAPSULE PO PRN (20:15)
[2023-08-30] MEDS ORDERED: HALOPERIDOL 5 MG TABLET PO PRN (20:15)
[2023-08-30] MEDS ORDERED: GABAPENTIN 300 MG CAPSULE PO PRN (20:15)
[2023-08-30] MEDS ORDERED: GuaiFENesin/D-METHORPHAN [SUGAR-FREE] 200-20MG/10 ML SYRUP UDCUP PO PRN (20:15)
[2023-08-30] MEDS ORDERED: ZOLPIDEM TARTRATE 10 MG TABLET PO PRN (20:15)
[2023-08-30] MEDS ORDERED: HydrOXYzine PAMOATE 50 MG CAPSULE PO PRN (20:15)
[2023-08-30 20:18] LABS: COVID AG,FIA SOURCE NASOPHARYNGEAL
[2023-08-30 20:51] LABS: SARS-COV2 (COVID) ANTIGEN,FIA Negative (Negative)
[2023-08-30] MEDS ORDERED: SERTRALINE HCL 100 MG TABLET PO SCH (21:00)
[2023-08-30] MEDS ORDERED: CloZAPine 100 MG TABLET PO SCH (21:00)
[2023-08-30] MEDS: LevETIRAcetam 500 MG TABLET PO SCH (21:22)
[2023-08-30] MEDS: THIAMINE 100 MG TABLET PO SCH (21:22)
[2023-08-30] MEDS: HALOPERIDOL 5 MG TABLET PO SCH (21:22)
[2023-08-30] MEDS: MELATONIN 5 MG TABLET PO SCH (21:23)
[2023-08-30 22:51] LABS: ALCOHOL, URINE DRUG SCREEN NEGATIVE (NEGATIVE); AMPHET/METH SCREEN,URINE NEGATIVE (NEGATIVE); BARBITURATE SCREEN, URINE NEGATIVE (NEGATIVE); BENZODIAZEPINES SCREEN,URINE NEGATIVE (NEGATIVE); CANNABINOID SCREEN,URINE NEGATIVE (NEGATIVE); COCAINE SCREEN,URINE NEGATIVE (NEGATIVE); METHADONE SCREEN, URINE NEGATIVE (NEGATIVE); OPIATE SCREEN,URINE NEGATIVE (NEGATIVE); PHENCYCLIDINE SCREEN,URINE NEGATIVE (NEGATIVE)
[2023-08-31] MEDS: TraZODone HCL 100 MG TABLET PO SCH ×2 (00:08→21:36)
[2023-08-31] MEDS ORDERED: INFLUENZA VIRUS VACCINE QVS 2023-24 (6MO+)/PF 60 MCG/0.5 ML SYRINGE IM. ONE (06:15)
[2023-08-31] MEDS: LITHIUM CARBONATE 300 MG CAPSULE PO SCH ×3 (07:14→17:02)
[2023-08-31] MEDS: OMEGA-3/DHA/EPA/FISH OIL 1,000 MG CAPSULE PO SCH (09:31)
[2023-08-31] MEDS: THIAMINE 100 MG TABLET PO SCH ×2 (09:31→17:02)
[2023-08-31] MEDS: FOLIC ACID 1 MG TABLET PO SCH (09:31)
[2023-08-31] MEDS: LevETIRAcetam 500 MG TABLET PO SCH ×2 (09:31→17:02)
[2023-08-31] MEDS: MULTIVITAMINS WITH MINERALS, THERAPEUTIC TABLET PO SCH (09:31)
[2023-08-31] MEDS: NALTREXONE HCL 50 MG TABLET PO SCH (09:31)
[2023-08-31 13:42] VITALS: BP 118/81; PULSE 95; RESP 18; TEMP 98
[2023-08-31] MEDS: CloZAPine 100 MG TABLET PO SCH (21:34)
[2023-08-31] MEDS: HALOPERIDOL 5 MG TABLET PO SCH (21:36)
[2023-08-31] MEDS: MELATONIN 5 MG TABLET PO SCH (21:36)
[2023-08-31] MEDS: SERTRALINE HCL 100 MG TABLET PO SCH (21:36)
[2023-08-31 21:50] VITALS: BP 98/62; PULSE 90; RESP 18; TEMP 98
[2023-09-01] MEDS: LITHIUM CARBONATE 300 MG CAPSULE PO SCH ×3 (06:52→16:43)
[2023-09-01] MEDS: NALTREXONE HCL 50 MG TABLET PO SCH (10:03)
[2023-09-01] MEDS: THIAMINE 100 MG TABLET PO SCH ×2 (10:03→16:43)
[2023-09-01] MEDS: MULTIVITAMINS WITH MINERALS, THERAPEUTIC TABLET PO SCH (10:03)
[2023-09-01] MEDS: FOLIC ACID 1 MG TABLET PO SCH (10:03)
[2023-09-01] MEDS: LevETIRAcetam 500 MG TABLET PO SCH ×2 (10:04→16:43)
[2023-09-01] MEDS: OMEGA-3/DHA/EPA/FISH OIL 1,000 MG CAPSULE PO SCH (10:04)
[2023-09-01 18:54] VITALS: PULSE 97; RESP 18; TEMP 97.5
[2023-09-01 20:38] VITALS: BP 116/78; PULSE 98; RESP 18; TEMP 98.5
[2023-09-01] MEDS: CloZAPine 100 MG TABLET PO SCH (21:00)
[2023-09-01] MEDS: MELATONIN 5 MG TABLET PO SCH (21:01)
[2023-09-01] MEDS: TraZODone HCL 100 MG TABLET PO SCH (21:01)
[2023-09-01] MEDS: SERTRALINE HCL 100 MG TABLET PO SCH (21:01)
[2023-09-01] MEDS: HALOPERIDOL 5 MG TABLET PO SCH (21:01)
[2023-09-02] MEDS: LITHIUM CARBONATE 300 MG CAPSULE PO SCH ×2 (06:54→12:57)
[2023-09-02 08:00] VITALS: BP 106/69; PULSE 97; RESP 16; TEMP 97.5
[2023-09-02] MEDS: OMEGA-3/DHA/EPA/FISH OIL 1,000 MG CAPSULE PO SCH (08:21)
[2023-09-02] MEDS: MULTIVITAMINS WITH MINERALS, THERAPEUTIC TABLET PO SCH (08:21)
[2023-09-02] MEDS: THIAMINE 100 MG TABLET PO SCH (08:22)
[2023-09-02] MEDS: NALTREXONE HCL 50 MG TABLET PO SCH (08:22)
[2023-09-02] MEDS: FOLIC ACID 1 MG TABLET PO SCH (08:22)
[2023-09-02] MEDS: LevETIRAcetam 500 MG TABLET PO SCH (08:22)
[2023-09-02 13:14] LABS: CLOZAPINE & NORCLOZAPINE 868 ng/mL; NORCLOZAPINE 372 ng/mL (Not Estab.)
[2023-09-02] MEDS ORDERED: HALO5TAB23 PO (15:03)
[2023-09-02] MEDS ORDERED: SERT-440 PO (15:03)
[2023-09-02] MEDS ORDERED: MELA5TAB40 PO (15:03)
[2023-09-02] MEDS ORDERED: TRAZ-257 PO (15:03)
[2023-09-02] MEDS ORDERED: CLOZ100T61 PO (15:03)
[2023-09-02] MEDS ORDERED: OMEG-135 PO (15:03)
[2023-09-02] MEDS ORDERED: LITH300C3 PO (15:03)
[2023-09-02] MEDS ORDERED: NALT50TA PO (15:03)
[2023-09-02] MEDS ORDERED: LEVE500T8 PO (15:03)
== END 2023-09-02 16:35 | disposition home or self-care (01) | DRG 750 ==
LOC: EMS 18:16 → 3EI 23:08
PROVIDERS: ADMIT Psychiatry & Neurology Psychiatry; ATTEND Psychiatry & Neurology Psychiatry
PROC: GZ72ZZZ Family Psychotherapy (ICD-10-PCS; principal; 2023-08-31)
PROC: GZHZZZZ Group Psychotherapy (ICD-10-PCS; 2023-08-31)
DX: F25.1 Schizoaffective disorder, depressive type (principal); R45.851 Suicidal ideations; D64.9 Anemia, unspecified; D72.829 Elevated white blood cell count, unspecified; F31.9 Bipolar disorder, unspecified; F41.9 Anxiety disorder, unspecified; E03.9 Hypothyroidism, unspecified; K59.00 Constipation, unspecified; Z20.822 Contact with and (suspected) exposure to COVID-19; M19.079 Primary osteoarthritis, unspecified ankle and foot; G47.00 Insomnia, unspecified; K21.9 Gastro-esophageal reflux disease without esophagitis; Z91.011 Allergy to milk products; Z91.018 Allergy to other foods; Z79.899 Other long term (current) drug therapy; Z86.16 Personal history of COVID-19
CPT/HCPCS: 80053; 80159; 80173; 80178; 80307; 84702; 85025; 87081; 99285; G0480; Q9967

== ENCOUNTER 2023-09-04 03:11 | Inpatient (IN) | payer MEDICAID, OTHER ==
[~2023-09-04] VITALS: Ht 167.6 cm; Wt 72.1 kg
[~2023-09-04 03:11] MED LIST changes: +LEVE500T8 PO
[2023-09-04 03:55] LABS: BASOPHILS % (AUTO) 0.7 % (0.0-2.0); EOSINOPHILS % (AUTO) 1.7 % (1.0-6.0); HEMATOCRIT 36.9 % (36-46); HEMOGLOBIN 12.3 g/dL (12.0-16.0); LYMPHOCYTES # (AUTO) 3.9 K/uL (1.0-4.8); LYMPHOCYTES % (AUTO) 32.7 % (22.0-44.0); MEAN CORPUSCULAR HGB CONC 33.4 G/dL (31.0-37.0); MEAN CORPUSCULAR VOLUME 93 fL (80-100); MONOCYTES % (AUTO) 8.3 % (2.0-9.0); NEUTROPHILS # (AUTO) 6.7 K/uL (1.8-7.7); NEUTROPHILS % (AUTO) 56.6 % (40.0-70.0); PLATELET COUNT (AUTO) 372 K/uL (150-450); RED BLOOD CELL COUNT(AUTO) 3.97 MIL/uL (4.00-5.20); RED CELL DISTRIBUTION WIDTH 13.9 % (11.5-14.5); WHITE BLOOD COUNT (AUTO) 11.9 K/uL (4.5-11.0)
[2023-09-04 04:05] LABS: ANION GAP 6 mmol/L (8-16); CALCIUM, TOTAL 9.9 mg/dL (8.8-10.5); CARBON DIOXIDE 26 mmol/L (22-29); CHLORIDE 105 mmol/L (98-107); CREATININE 0.85 mg/dL (0.60-1.30); GLOMERULAR FILTR. RATE CALC > 60 mL/min (>60); GLUCOSE,RANDOM 97 mg/dL (70-110); POTASSIUM 3.4 mmol/L (3.5-5.1); SODIUM SERUM 137 mmol/L (136-145); UREA NITROGEN, BLOOD 14 mg/dL (7-18)
[2023-09-04 04:09] LABS: ALCOHOL, URINE DRUG SCREEN NEGATIVE (NEGATIVE); AMPHET/METH SCREEN,URINE NEGATIVE (NEGATIVE); BARBITURATE SCREEN, URINE NEGATIVE (NEGATIVE); BENZODIAZEPINES SCREEN,URINE NEGATIVE (NEGATIVE); CANNABINOID SCREEN,URINE NEGATIVE (NEGATIVE); COCAINE SCREEN,URINE NEGATIVE (NEGATIVE); METHADONE SCREEN, URINE NEGATIVE (NEGATIVE); OPIATE SCREEN,URINE NEGATIVE (NEGATIVE); PHENCYCLIDINE SCREEN,URINE NEGATIVE (NEGATIVE)
[2023-09-04 04:10] LABS: ALANINE AMINOTRANSFERASE 106 U/L (12-78); ALBUMIN 3.5 g/dL (3.4-5.0); ALKALINE PHOSPHATASE 118 U/L (46-116); ASPARTATE AMINOTRANSFERASE 30 U/L (15-37); BILIRUBIN,TOTAL 0.4 mg/dL (0.1-1.0); TOTAL PROTEIN, SERUM 7.3 g/dL (6.4-8.2)
[2023-09-04 04:11] LABS: ALCOHOL, BLOOD (SERUM) < 3 mg/dL (0-10)
[2023-09-04] MEDS ORDERED: POLYETHYLENE GLYCOL 3350 17 GM PACKET PO ONE (05:15)
[2023-09-04] MEDS: LORazepam 2 MG TABLET PO PRN ×3 (07:52→21:44)
[2023-09-04] MEDS: QUEtiapine FUMARATE 100 MG TABLET PO PRN ×3 (07:52→21:45)
[2023-09-04] MEDS ORDERED: ACETAMINOPHEN 325 MG TABLET PO ONE (08:45)
[2023-09-04] MEDS ORDERED: PRAMOXINE HCL TP ONE (11:15)
[2023-09-05 12:06] LABS: APPEARANCE,URINE CLEAR (CLEAR); BILIRUBIN,URINE NEGATIVE (NEGATIVE); COLOR,URINE LIGHT YELLOW (YELLOW); GLUCOSE, URINE (UA) NEGATIVE (NEGATIVE); KETONES,URINE NEGATIVE (NEGATIVE); LEUKOCYTE ESTERASE ,URINE NEGATIVE (NEGATIVE); NITRATE,URINE NEGATIVE (NEGATIVE); OCCULT BLOOD,URINE NEGATIVE (NEGATIVE); PH,URINE 6.5 (5.0-8.0); PH,URINE DRUG SCREEN 6.5 (5.0-8.0); PROTEIN,URINE TRACE mg/dL (NEGATIVE); SPECIFIC GRAVITIY, URINE 1.016 (1.003-1.030); UROBILINOGEN,URINE <=1.0 mg/dL (<=1.0)
[2023-09-05 12:16] LABS: ALCOHOL, URINE DRUG SCREEN NEGATIVE (NEGATIVE); AMPHET/METH SCREEN,URINE NEGATIVE (NEGATIVE); BARBITURATE SCREEN, URINE NEGATIVE (NEGATIVE); BENZODIAZEPINES SCREEN,URINE NEGATIVE (NEGATIVE); CANNABINOID SCREEN,URINE NEGATIVE (NEGATIVE); COCAINE SCREEN,URINE NEGATIVE (NEGATIVE); METHADONE SCREEN, URINE NEGATIVE (NEGATIVE); OPIATE SCREEN,URINE NEGATIVE (NEGATIVE); PHENCYCLIDINE SCREEN,URINE NEGATIVE (NEGATIVE)
[2023-09-05 12:48] LABS: COVID AG,FIA SOURCE NASAL SWAB
[2023-09-05 13:16] LABS: SARS-COV2 (COVID) ANTIGEN,FIA Negative (Negative)
[2023-09-05] MEDS ORDERED: ONDANSETRON HCL 4 MG/2 ML VIAL IM ONE (17:30)
[2023-09-05 18:04] VITALS: BP 117/60; PULSE 101; RESP 18; TEMP 97.6; O2SAT 97
[2023-09-05] MEDS ORDERED: INFLUENZA VIRUS VACCINE QVS 2023-24 (6MO+)/PF 60 MCG/0.5 ML SYRINGE IM. ONE (19:00)
[2023-09-05 20:01] VITALS: BP 112/72; PULSE 88; RESP 18; TEMP 98
[2023-09-05] MEDS: LORazepam 2 MG TABLET PO PRN (21:46)
[2023-09-06] MEDS: LORazepam 2 MG TABLET PO PRN ×2 (07:11→13:13)
[2023-09-06 07:17] VITALS: BP 106/66; PULSE 73; RESP 18; TEMP 97.7; O2SAT 97
[2023-09-06 08:20] VITALS: BP 103/77; PULSE 97; RESP 18; TEMP 97.8; O2SAT 98
[2023-09-06] MEDS ORDERED: MAGNESIUM HYDROXIDE SUSPENSION 30 ML UDCUP PO PRN (12:30)
[2023-09-06] MEDS: QUEtiapine FUMARATE 100 MG TABLET PO PRN (13:13)
[2023-09-06] MEDS ORDERED: DOCUSATE SODIUM 100 MG CAPSULE PO SCH (17:00)
== END 2023-09-06 15:45 | disposition home or self-care (01) | DRG 750 ==
LOC: EMS 03:12 → B2S 09-05 16:57
PROVIDERS: ADMIT Psychiatry & Neurology Psychiatry; ATTEND Psychiatry & Neurology Psychiatry
PROC: GZHZZZZ Group Psychotherapy (ICD-10-PCS; principal; 2023-09-06)
PROC: GZ51ZZZ Individual Psychotherapy, Behavioral (ICD-10-PCS; 2023-09-06)
DX: F25.1 Schizoaffective disorder, depressive type (principal); R45.851 Suicidal ideations; E03.9 Hypothyroidism, unspecified; J44.9 Chronic obstructive pulmonary disease, unspecified; M19.90 Unspecified osteoarthritis, unspecified site; K21.9 Gastro-esophageal reflux disease without esophagitis; Z20.822 Contact with and (suspected) exposure to COVID-19; F31.9 Bipolar disorder, unspecified; F41.9 Anxiety disorder, unspecified; Z91.011 Allergy to milk products; Z91.018 Allergy to other foods; Z86.16 Personal history of COVID-19; Z79.899 Other long term (current) drug therapy
CPT/HCPCS: 80053; 80307; 81003; 84702; 85025; 87081; G0480; J2405

== ENCOUNTER 2023-11-08 20:37 | Inpatient (IN) | payer MEDICAID, OTHER ==
[~2023-11-08] VITALS: Ht 167.6 cm; Wt 84.7 kg
[~2023-11-08 20:37] MED LIST changes: -LEVE500T20 PO
[2023-11-08 21:25] LABS: BASOPHILS % (AUTO) 0.8 % (0.0-2.0); EOSINOPHILS % (AUTO) 1.8 % (1.0-6.0); HEMATOCRIT 39.2 % (36-46); HEMOGLOBIN 12.9 g/dL (12.0-16.0); LYMPHOCYTES # (AUTO) 3.6 K/uL (1.0-4.8); LYMPHOCYTES % (AUTO) 34.8 % (22.0-44.0); MEAN CORPUSCULAR HEMOGLOBIN 31.1 pg (26.0-34.0); MEAN CORPUSCULAR VOLUME 94 fL (80-100); MONOCYTES # (AUTO) 0.9 K/uL (0.1-1.0); MONOCYTES % (AUTO) 8.6 % (2.0-9.0); NEUTROPHILS # (AUTO) 5.6 K/uL (1.8-7.7); PLATELET COUNT (AUTO) 378 K/uL (150-450); RED BLOOD CELL COUNT(AUTO) 4.16 MIL/uL (4.00-5.20); RED CELL DISTRIBUTION WIDTH 13.7 % (11.5-14.5); WHITE BLOOD COUNT (AUTO) 10.3 K/uL (4.5-11.0)
[2023-11-08 21:36] LABS: ANION GAP 9 mmol/L (8-16); CALCIUM, TOTAL 10.3 mg/dL (8.8-10.5); CARBON DIOXIDE 27 mmol/L (22-29); CHLORIDE 104 mmol/L (98-107); CREATININE 0.81 mg/dL (0.60-1.30); GLOMERULAR FILTR. RATE CALC > 60 mL/min (>60); GLUCOSE,RANDOM 118 mg/dL (70-110); POTASSIUM 4.1 mmol/L (3.5-5.1); SODIUM SERUM 140 mmol/L (136-145); UREA NITROGEN, BLOOD 16 mg/dL (7-18)
[2023-11-08 21:41] LABS: ALANINE AMINOTRANSFERASE 59 U/L (12-78); ALBUMIN 3.8 g/dL (3.4-5.0); ALKALINE PHOSPHATASE 92 U/L (46-116); ASPARTATE AMINOTRANSFERASE 16 U/L (15-37); BILIRUBIN,TOTAL 0.4 mg/dL (0.1-1.0)
[2023-11-08] MEDS ORDERED: GuaiFENesin/D-METHORPHAN [SUGAR-FREE] 200-20MG/10 ML SYRUP UDCUP PO PRN (21:45)
[2023-11-08] MEDS ORDERED: TUBERCULIN, PURIFIED PROTEIN DERIVATIVE 5 TU/0.1 ML SYRINGE ID ONE (21:45)
[2023-11-08] MEDS ORDERED: MAG HYDROX/ALUMINUM HYD/SIMETH ES 30 ML SUSPENSION UDCUP PO PRN (21:45)
[2023-11-08] MEDS ORDERED: ACETAMINOPHEN 325 MG TABLET PO PRN (21:45)
[2023-11-08] MEDS ORDERED: LOPERAMIDE HCL 2 MG CAPSULE PO PRN (21:45)
[2023-11-08] MEDS ORDERED: HydrOXYzine PAMOATE 50 MG CAPSULE PO PRN (21:45)
[2023-11-08 21:48] LABS: ALCOHOL, BLOOD (SERUM) < 3 mg/dL (0-10)
[2023-11-08] MEDS: PALIPERIDONE PALMITATE 234 MG/1.5 ML SYRINGE IM ONE (22:31)
[2023-11-08 23:09] LABS: COVID AG,FIA SOURCE NASAL SWAB
[2023-11-08 23:27] LABS: SARS-COV2 (COVID) ANTIGEN,FIA Negative (Negative)
[2023-11-09 02:24] VITALS: BP 118/68; PULSE 91; RESP 18; TEMP 97.6
[2023-11-09] MEDS: INFLUENZA VIRUS VACCINE QVS 2023-24 (6MO+)/PF 60 MCG/0.5 ML SYRINGE IM. ONE (02:30)
[2023-11-09 08:00] VITALS: BP 109/68; PULSE 85; RESP 19; TEMP 98.2
[2023-11-09 08:06] LABS: HEMOGLOBIN A1C 4.7 % (3.8-5.6)
[2023-11-09 08:07] LABS: LITHIUM 1.23 mmol/L (0.60-1.20)
[2023-11-09 08:14] LABS: CHOL/HDL RATIO 2.1 (3.9-5.7)
[2023-11-09] MEDS: NALTREXONE HCL 50 MG TABLET PO SCH (08:17)
[2023-11-09] MEDS: THIAMINE 100 MG TABLET PO SCH (08:17)
[2023-11-09] MEDS: MULTIVITAMINS WITH MINERALS, THERAPEUTIC TABLET PO SCH (08:17)
[2023-11-09] MEDS: HALOPERIDOL 5 MG TABLET PO SCH (08:18)
[2023-11-09] MEDS: LITHIUM CARBONATE 300 MG CAPSULE PO SCH ×2 (08:18→17:17)
[2023-11-09] MEDS: FOLIC ACID 1 MG TABLET PO SCH (08:18)
[2023-11-09] MEDS: OMEGA-3/DHA/EPA/FISH OIL 1,000 MG CAPSULE PO SCH (08:18)
[2023-11-09] MEDS: LevETIRAcetam 500 MG TABLET PO SCH (08:18)
[2023-11-09] MEDS: MAGNESIUM HYDROXIDE SUSPENSION 30 ML UDCUP PO PRN (09:10)
[2023-11-09] MEDS: PROMETHAZINE HCL 25 MG TABLET PO PRN (18:16)
[2023-11-09 20:29] VITALS: BP 118/67; PULSE 81; RESP 17; TEMP 97.8
[2023-11-09] MEDS: CloZAPine 100 MG TABLET PO SCH (21:43)
[2023-11-09] MEDS: LITHIUM CARBONATE 300 MG TABLET PO SCH (21:44)
[2023-11-09] MEDS: TraZODone HCL 100 MG TABLET PO SCH (21:44)
[2023-11-09] MEDS: SERTRALINE HCL 100 MG TABLET PO SCH (21:45)
[2023-11-09] MEDS: MELATONIN 5 MG TABLET PO SCH (21:45)
[2023-11-10 08:14] VITALS: BP 114/77; PULSE 78; RESP 17; TEMP 97.5
[2023-11-10 20:36] VITALS: BP 123/82; PULSE 85; RESP 17; TEMP 97.6
[2023-11-10] MEDS: SERTRALINE HCL 100 MG TABLET PO SCH (21:02)
[2023-11-11 08:40] VITALS: BP 112/67; PULSE 86; RESP 16; TEMP 97.5
[2023-11-11] MEDS: BENZTROPINE MESYLATE 1 MG TABLET PO SCH (08:49)
[2023-11-11] MEDS: NITROFURANTOIN MONOHYD/M-CRYST 100 MG CAPSULE [MACROBID] PO SCH (16:57)
[2023-11-11 20:24] VITALS: BP 134/84; PULSE 88; RESP 18; TEMP 97.8; O2SAT 99
[2023-11-11] MEDS: NYSTATIN 15 GM POWDER BOTTLE TP SCH (20:41)
[2023-11-11] MEDS ORDERED: BENZ1TAB84 PO (22:36)
[2023-11-11] MEDS ORDERED: HALO5TAB23 PO (22:36)
[2023-11-11] MEDS ORDERED: NALT50TA33 PO (22:36)
[2023-11-12 08:38] VITALS: BP 122/81; PULSE 86; RESP 17; TEMP 98; O2SAT 100
[2023-11-12 08:39] LABS: APPEARANCE,URINE CLEAR (CLEAR); BILIRUBIN,URINE NEGATIVE (NEGATIVE); COLOR,URINE LIGHT YELLOW (YELLOW); GLUCOSE, URINE (UA) NEGATIVE (NEGATIVE); KETONES,URINE NEGATIVE (NEGATIVE); LEUKOCYTE ESTERASE ,URINE NEGATIVE (NEGATIVE); NITRATE,URINE NEGATIVE (NEGATIVE); OCCULT BLOOD,URINE NEGATIVE (NEGATIVE); PROTEIN,URINE NEGATIVE (NEGATIVE); SPECIFIC GRAVITIY, URINE 1.015 (1.003-1.030); UROBILINOGEN,URINE <=1.0 mg/dL (<=1.0)
[2023-11-12 08:50] LABS: ALCOHOL, URINE DRUG SCREEN NEGATIVE (NEGATIVE); AMPHET/METH SCREEN,URINE NEGATIVE (NEGATIVE); BARBITURATE SCREEN, URINE NEGATIVE (NEGATIVE); BENZODIAZEPINES SCREEN,URINE NEGATIVE (NEGATIVE); CANNABINOID SCREEN,URINE NEGATIVE (NEGATIVE); COCAINE SCREEN,URINE NEGATIVE (NEGATIVE); METHADONE SCREEN, URINE NEGATIVE (NEGATIVE); OPIATE SCREEN,URINE NEGATIVE (NEGATIVE); PHENCYCLIDINE SCREEN,URINE NEGATIVE (NEGATIVE)
[2023-11-12 09:12] LABS: HCG,QUAL URINE NEGATIVE (NEGATIVE)
[2023-11-12] MEDS: PALIPERIDONE PALMITATE 156 MG/ML SYRINGE IM ONE (09:12)
[2023-11-12] MEDS ORDERED: NITR-75 PO (10:31)
[2023-11-15 09:07] LABS: CLOZAPINE & NORCLOZAPINE 164 ng/mL; NORCLOZAPINE 74 ng/mL (Not Estab.)
== END 2023-11-12 11:00 | disposition home or self-care (01) | DRG 750 ==
LOC: EMS 21:46 → B2X 11-09 00:25 → B2S 11-09 03:11
PROVIDERS: ADMIT Psychiatry & Neurology Psychiatry; ATTEND Psychiatry & Neurology Psychiatry
PROC: GZHZZZZ Group Psychotherapy (ICD-10-PCS; principal; 2023-11-11)
PROC: GZ56ZZZ Individual Psychotherapy, Supportive (ICD-10-PCS; 2023-11-11)
DX: F25.1 Schizoaffective disorder, depressive type (principal); G40.409 Other generalized epilepsy and epileptic syndromes, not intractable, without status epilepticus; D64.9 Anemia, unspecified; Z20.822 Contact with and (suspected) exposure to COVID-19; Z55.9 Problems related to education and literacy, unspecified; Z65.3 Problems related to other legal circumstances; E03.9 Hypothyroidism, unspecified; J44.9 Chronic obstructive pulmonary disease, unspecified; F17.210 Nicotine dependence, cigarettes, uncomplicated; F31.9 Bipolar disorder, unspecified; K21.9 Gastro-esophageal reflux disease without esophagitis; F41.9 Anxiety disorder, unspecified
CPT/HCPCS: 80053; 80061; 80159; 80173; 80178; 80307; 81003; 83036; 84703; 85025; 87081; 99285; G0480; G0482; Q9967

== ENCOUNTER 2024-01-03 04:56 | Inpatient (IN) | payer MEDICAID, OTHER ==
[~2024-01-03] VITALS: Ht 167.6 cm; Wt 88.7 kg
[~2024-01-03 04:56] MED LIST changes: +BENZ1TAB84 PO; -LITH300C3 PO; -NALT50TA PO; +NALT50TA33 PO; +NALT50TA6 PO; +NITR-75 PO
[2024-01-03 05:29] LABS: BASOPHILS % (AUTO) 0.6 % (0.0-2.0); EOSINOPHILS % (AUTO) 2.2 % (1.0-6.0); HEMATOCRIT 39.1 % (36-46); HEMOGLOBIN 13.3 g/dL (12.0-16.0); LYMPHOCYTES # (AUTO) 4.2 K/uL (1.0-4.8); LYMPHOCYTES % (AUTO) 40.4 % (22.0-44.0); MEAN CORPUSCULAR HEMOGLOBIN 31.2 pg (26.0-34.0); MEAN CORPUSCULAR HGB CONC 34.1 G/dL (31.0-37.0); MEAN CORPUSCULAR VOLUME 92 fL (80-100); MONOCYTES # (AUTO) 0.8 K/uL (0.1-1.0); MONOCYTES % (AUTO) 7.7 % (2.0-9.0); NEUTROPHILS # (AUTO) 5.1 K/uL (1.8-7.7); NEUTROPHILS % (AUTO) 49.1 % (40.0-70.0); PLATELET COUNT (AUTO) 415 K/uL (150-450); RED BLOOD CELL COUNT(AUTO) 4.27 MIL/uL (4.00-5.20); RED CELL DISTRIBUTION WIDTH 13.5 % (11.5-14.5); WHITE BLOOD COUNT (AUTO) 10.4 K/uL (4.5-11.0)
[2024-01-03 05:36] LABS: COVID AG,FIA SOURCE NASAL SWAB
[2024-01-03 05:40] LABS: ANION GAP 10 mmol/L (8-16); CALCIUM, TOTAL 9.6 mg/dL (8.8-10.5); CARBON DIOXIDE 25 mmol/L (22-29); CHLORIDE 105 mmol/L (98-107); CREATININE 0.81 mg/dL (0.60-1.30); GLOMERULAR FILTR. RATE CALC > 60 mL/min (>60); GLUCOSE,RANDOM 109 mg/dL (70-110); POTASSIUM 3.8 mmol/L (3.5-5.1); SODIUM SERUM 140 mmol/L (136-145); UREA NITROGEN, BLOOD 18 mg/dL (7-18)
[2024-01-03 05:45] LABS: ALCOHOL, BLOOD (SERUM) < 3 mg/dL (0-10)
[2024-01-03 05:46] LABS: ALANINE AMINOTRANSFERASE 49 U/L (12-78); ALBUMIN 3.4 g/dL (3.4-5.0); ALKALINE PHOSPHATASE 60 U/L (46-116); ASPARTATE AMINOTRANSFERASE 12 U/L (15-37); BILIRUBIN,TOTAL 0.6 mg/dL (0.1-1.0); TOTAL PROTEIN, SERUM 7.2 g/dL (6.4-8.2)
[2024-01-03 05:56] LABS: SARS-COV2 (COVID) ANTIGEN,FIA Negative (Negative)
[2024-01-03 06:21] LABS: ALCOHOL, URINE DRUG SCREEN NEGATIVE (NEGATIVE); AMPHET/METH SCREEN,URINE NEGATIVE (NEGATIVE); BARBITURATE SCREEN, URINE NEGATIVE (NEGATIVE); BENZODIAZEPINES SCREEN,URINE POSITIVE (NEGATIVE); CANNABINOID SCREEN,URINE NEGATIVE (NEGATIVE); COCAINE SCREEN,URINE NEGATIVE (NEGATIVE); METHADONE SCREEN, URINE NEGATIVE (NEGATIVE); OPIATE SCREEN,URINE NEGATIVE (NEGATIVE); PHENCYCLIDINE SCREEN,URINE NEGATIVE (NEGATIVE)
[2024-01-03] MEDS ORDERED: LOPERAMIDE HCL 2 MG CAPSULE PO PRN (11:00)
[2024-01-03] MEDS ORDERED: GuaiFENesin/D-METHORPHAN [SUGAR-FREE] 200-20MG/10 ML SYRUP UDCUP PO PRN (11:00)
[2024-01-03] MEDS ORDERED: OLANZapine 5 MG RAPDIS TABLET PO PRN (11:00)
[2024-01-03] MEDS ORDERED: HydrOXYzine PAMOATE 50 MG CAPSULE PO PRN (11:00)
[2024-01-03] MEDS ORDERED: TUBERCULIN, PURIFIED PROTEIN DERIVATIVE 5 TU/0.1 ML SYRINGE ID ONE (11:00)
[2024-01-03] MEDS ORDERED: GABAPENTIN 300 MG CAPSULE PO PRN (11:15)
[2024-01-03] MEDS: HALOPERIDOL 5 MG TABLET PO PRN (11:52)
[2024-01-03] MEDS: LORazepam 2 MG TABLET PO PRN (11:52)
[2024-01-03] MEDS: AMANTADINE HCL 100 MG CAPSULE PO SCH (13:00)
[2024-01-03 14:40] VITALS: BP 127/85; PULSE 106; RESP 18; TEMP 98.7
[2024-01-03] MEDS ORDERED: PNEUMOCOCCAL VACCINE POLYVALENT 0.5 ML SYRINGE [PPSV23] IM. ONE (15:00)
[2024-01-03] MEDS: LevETIRAcetam 500 MG TABLET PO SCH (17:10)
[2024-01-03] MEDS: THIAMINE 100 MG TABLET PO SCH (17:10)
[2024-01-03 20:45] VITALS: BP 120/81; PULSE 98; RESP 20; TEMP 97.9
[2024-01-03] MEDS: CloZAPine 100 MG TABLET PO SCH (20:52)
[2024-01-03] MEDS: MELATONIN 5 MG TABLET PO SCH (20:52)
[2024-01-03] MEDS: TraZODone HCL 100 MG TABLET PO SCH (20:53)
[2024-01-03] MEDS: ACETAMINOPHEN 325 MG TABLET PO PRN (20:53)
[2024-01-03 21:25] VITALS: BP 107/72; PULSE 87; RESP 18; TEMP 97.1
[2024-01-03 21:53] VITALS: RESP 18
[2024-01-03] MEDS ORDERED: DiphenhydrAMINE HCL 50 MG/ML VIAL ONE (23:45)
[2024-01-03] MEDS: LORazepam 2 MG/ML VIAL IM ONE (23:51)
[2024-01-03] MEDS: DiphenhydrAMINE HCL 50 MG/ML VIAL IM ONE (23:51)
[2024-01-03] MEDS: HALOPERIDOL LACTATE 5 MG/ML VIAL IM ONE (23:56)
[2024-01-04 07:25] LABS: HEMOGLOBIN A1C 5.2 % (3.8-5.6)
[2024-01-04 07:29] LABS: CHOL/HDL RATIO 2.2 (3.9-5.7)
[2024-01-04] MEDS ORDERED: CloZAPine 25 MG TABLET PO SCH (09:00)
[2024-01-04] MEDS: OMEGA-3/DHA/EPA/FISH OIL 1,000 MG CAPSULE PO SCH (09:12)
[2024-01-04] MEDS: FOLIC ACID 1 MG TABLET PO SCH (09:14)
[2024-01-04] MEDS: MULTIVITAMINS WITH MINERALS, THERAPEUTIC TABLET PO SCH (09:19)
[2024-01-04] MEDS: SERTRALINE HCL 100 MG TABLET PO SCH (09:22)
[2024-01-04 11:37] VITALS: BP 137/105; PULSE 86; RESP 18; TEMP 97.4
[2024-01-04 23:07] VITALS: BP 121/71; PULSE 82; RESP 18; TEMP 98.1
[2024-01-05] MEDS ORDERED: CloZAPine 25 MG TABLET PO SCH ×2 (09:00→21:00)
[2024-01-05 09:44] VITALS: BP 116/77; PULSE 89; RESP 16; TEMP 97.4
[2024-01-05 20:48] VITALS: BP 115/75; PULSE 110; RESP 18; TEMP 98.2
[2024-01-05 21:20] VITALS: BP 123/70; PULSE 95; RESP 19; TEMP 97.8
[2024-01-05 22:26] VITALS: RESP 18
[2024-01-05] MEDS: ZOLPIDEM TARTRATE 10 MG TABLET PO PRN (23:40)
[2024-01-06 08:18] VITALS: BP 126/87; PULSE 95; RESP 17; TEMP 97.9
[2024-01-06] MEDS ORDERED: CloZAPine 25 MG TABLET PO SCH ×2 (09:00→21:00)
[2024-01-06 09:23] VITALS: RESP 18
[2024-01-06] MEDS ORDERED: LOPERAMIDE HCL 2 MG CAPSULE PO PRN (11:00)
[2024-01-06] MEDS: DIVALPROEX SODIUM 500 MG ER TABLET PO SCH (20:36)
[2024-01-06 23:50] VITALS: BP 113/64; PULSE 97; RESP 18; TEMP 97.9
[2024-01-07 05:07] LABS: CLOZAPINE & NORCLOZAPINE 375 ng/mL; NORCLOZAPINE 159 ng/mL (Not Estab.)
[2024-01-07] MEDS ORDERED: CloZAPine 25 MG TABLET PO SCH (09:00)
[2024-01-07 09:01] VITALS: BP 118/71; PULSE 95; RESP 18; TEMP 97.3
[2024-01-07] MEDS: MAGNESIUM HYDROXIDE SUSPENSION 30 ML UDCUP PO PRN (12:15)
[2024-01-07] MEDS: DIVALPROEX SODIUM 250 MG ER TABLET PO SCH (21:07)
[2024-01-07] MEDS: CloZAPine 100 MG TABLET PO SCH (21:07)
[2024-01-07 23:39] VITALS: BP 115/74; PULSE 97; RESP 18; TEMP 97.5
[2024-01-08 09:17] VITALS: BP 108/73; PULSE 95; RESP 19; TEMP 97.1
[2024-01-08 23:00] VITALS: BP 113/77; PULSE 94; RESP 18; TEMP 97.1
[2024-01-09] MEDS ORDERED: CloZAPine 25 MG TABLET PO SCH (09:00)
[2024-01-09 09:24] VITALS: BP 101/68; PULSE 88; RESP 18; TEMP 98.1
[2024-01-09 14:28] VITALS: BP 116/65; PULSE 83; RESP 18; TEMP 97.9
[2024-01-09] MEDS: PROMETHAZINE HCL 25 MG TABLET PO PRN (14:57)
[2024-01-09 15:27] VITALS: BP 125/70; PULSE 88; RESP 17; TEMP 98
[2024-01-09] MEDS: MAG HYDROX/ALUMINUM HYD/SIMETH ES 30 ML SUSPENSION UDCUP PO PRN (15:55)
[2024-01-09 20:55] VITALS: BP 124/81; PULSE 70; RESP 18; TEMP 97.1
[2024-01-09] MEDS ORDERED: CloZAPine 100 MG TABLET PO SCH (21:00)
[2024-01-10 08:50] LABS: BASOPHILS % (AUTO) 0.9 % (0.0-2.0); EOSINOPHILS % (AUTO) 2.4 % (1.0-6.0); HEMATOCRIT 40.5 % (36-46); HEMOGLOBIN 13.5 g/dL (12.0-16.0); LYMPHOCYTES # (AUTO) 3.5 K/uL (1.0-4.8); LYMPHOCYTES % (AUTO) 42.3 % (22.0-44.0); MEAN CORPUSCULAR HEMOGLOBIN 30.7 pg (26.0-34.0); MEAN CORPUSCULAR HGB CONC 33.2 G/dL (31.0-37.0); MEAN CORPUSCULAR VOLUME 92 fL (80-100); MONOCYTES # (AUTO) 0.6 K/uL (0.1-1.0); MONOCYTES % (AUTO) 7.7 % (2.0-9.0); NEUTROPHILS # (AUTO) 3.9 K/uL (1.8-7.7); NEUTROPHILS % (AUTO) 46.7 % (40.0-70.0); PLATELET COUNT (AUTO) 370 K/uL (150-450); RED BLOOD CELL COUNT(AUTO) 4.39 MIL/uL (4.00-5.20); RED CELL DISTRIBUTION WIDTH 13.4 % (11.5-14.5); WHITE BLOOD COUNT (AUTO) 8.3 K/uL (4.5-11.0)
[2024-01-10] MEDS ORDERED: CloZAPine 25 MG TABLET PO SCH (09:00)
[2024-01-10 09:30] VITALS: BP 109/77; PULSE 92; RESP 18; TEMP 97.9
[2024-01-10] MEDS ORDERED: CloZAPine 100 MG TABLET PO SCH (21:00)
[2024-01-10 21:15] VITALS: BP 124/83; PULSE 72; RESP 18; TEMP 97.8
[2024-01-10] MEDS: PALIPERIDONE PALMITATE 234 MG/1.5 ML SYRINGE IM ONE (21:21)
[2024-01-11 08:00] VITALS: BP 129/85; PULSE 111; RESP 18; TEMP 97.5
[2024-01-11] MEDS ORDERED: CloZAPine 25 MG TABLET PO SCH (09:00)
[2024-01-11] MEDS: OMEPRAZOLE 20 MG CAPSULE PO SCH (17:19)
[2024-01-11] MEDS ORDERED: CloZAPine 100 MG TABLET PO SCH (21:00)
[2024-01-11 21:44] VITALS: BP 131/81; PULSE 82; RESP 19; TEMP 97.1
[2024-01-12] MEDS ORDERED: CloZAPine 100 MG TABLET PO SCH (09:00)
[2024-01-12 10:42] VITALS: BP 138/84; PULSE 78; RESP 18; TEMP 98
[2024-01-12 20:40] VITALS: RESP 18; TEMP 98.1
[2024-01-13 03:06] LABS: HEPATITIS C AB (EIA) Non Reactive (Non Reactive)
[2024-01-13 07:06] LABS: HEPATITIS A ANTIBODY IGM Negative (Negative); HEPATITIS B CORE IGM Negative (Negative)
[2024-01-13 09:20] VITALS: BP 129/87; PULSE 98; RESP 18; TEMP 98.7
[2024-01-13 22:42] VITALS: RESP 18
[2024-01-14] MEDS: PALIPERIDONE PALMITATE 156 MG/ML SYRINGE IM ONE (08:55)
[2024-01-14] MEDS ORDERED: CloZAPine 25 MG TABLET PO SCH (09:00)
[2024-01-14 09:03] VITALS: BP 131/87; PULSE 78; RESP 18; TEMP 98.4
[2024-01-14 13:07] LABS: CLOZAPINE & NORCLOZAPINE 497 ng/mL; NORCLOZAPINE 140 ng/mL (Not Estab.)
[2024-01-14] MEDS: CloZAPine 100 MG TABLET PO SCH (21:00)
[2024-01-14] MEDS ORDERED: CloZAPine 100 MG TABLET PO SCH (21:00)
[2024-01-14 23:45] VITALS: RESP 18
[2024-01-15] MEDS ORDERED: CloZAPine 25 MG TABLET PO SCH (09:00)
[2024-01-15 09:13] VITALS: BP 140/88; PULSE 75; RESP 18; TEMP 97.9
[2024-01-15] MEDS ORDERED: CloZAPine 100 MG TABLET PO SCH (21:00)
[2024-01-15 23:14] VITALS: BP 109/68; PULSE 99; RESP 18; TEMP 98.3
[2024-01-16 08:00] VITALS: BP 116/77; PULSE 90; RESP 18; TEMP 97
[2024-01-16] MEDS ORDERED: CloZAPine 100 MG TABLET PO SCH ×2 (09:00→21:00)
[2024-01-16 09:02] VITALS: BP 116/77; PULSE 100; RESP 18; TEMP 97.7
[2024-01-16 20:44] VITALS: BP 124/81; PULSE 76; RESP 18; TEMP 97.9
[2024-01-17 07:53] LABS: BASOPHILS % (AUTO) 0.8 % (0.0-2.0); EOSINOPHILS % (AUTO) 2.7 % (1.0-6.0); HEMATOCRIT 41.4 % (36-46); LYMPHOCYTES # (AUTO) 3.4 K/uL (1.0-4.8); LYMPHOCYTES % (AUTO) 47.6 % (22.0-44.0); MEAN CORPUSCULAR HEMOGLOBIN 31.2 pg (26.0-34.0); MEAN CORPUSCULAR HGB CONC 33.7 G/dL (31.0-37.0); MEAN CORPUSCULAR VOLUME 93 fL (80-100); MONOCYTES # (AUTO) 0.8 K/uL (0.1-1.0); MONOCYTES % (AUTO) 11.6 % (2.0-9.0); NEUTROPHILS # (AUTO) 2.7 K/uL (1.8-7.7); NEUTROPHILS % (AUTO) 37.3 % (40.0-70.0); PLATELET COUNT (AUTO) 311 K/uL (150-450); RED BLOOD CELL COUNT(AUTO) 4.48 MIL/uL (4.00-5.20); RED CELL DISTRIBUTION WIDTH 13.9 % (11.5-14.5); WHITE BLOOD COUNT (AUTO) 7.1 K/uL (4.5-11.0)
[2024-01-17 11:41] VITALS: BP 122/84; PULSE 78; RESP 18; TEMP 97.7
[2024-01-17 22:45] VITALS: RESP 18
[2024-01-18 08:38] VITALS: BP 149/76; PULSE 90; RESP 18; TEMP 98
[2024-01-18 09:32] VITALS: BP 149/76; PULSE 90; RESP 18; TEMP 98
[2024-01-18 09:38] VITALS: RESP 18
[2024-01-18 18:12] VITALS: BP 136/80; PULSE 88; RESP 18
[2024-01-18 19:12] VITALS: RESP 16
[2024-01-18 22:23] VITALS: BP 123/80; PULSE 76; RESP 18; TEMP 97.9
[2024-01-19 10:03] VITALS: BP 110/80; PULSE 98; RESP 18; TEMP 97.6
[2024-01-19] MEDS: TUBERCULIN, PURIFIED PROTEIN DERIVATIVE 5 TU/0.1 ML SYRINGE ID ONE (18:08)
[2024-01-19 21:49] VITALS: BP 138/89; PULSE 88; RESP 19; TEMP 97.5
[2024-01-20 08:00] VITALS: BP 124/84; PULSE 86; RESP 19; TEMP 98.1
[2024-01-20 20:22] VITALS: BP 134/87; PULSE 100; RESP 18; TEMP 97.5
[2024-01-21 10:24] VITALS: BP 119/72; PULSE 92; RESP 18; TEMP 97.6
[2024-01-21 21:24] VITALS: BP 123/81; PULSE 74; RESP 18; TEMP 97.1
[2024-01-21 22:42] VITALS: RESP 18
[2024-01-21 23:42] VITALS: RESP 18
[2024-01-22 08:31] VITALS: BP 101/71; PULSE 73; RESP 18; TEMP 97.8
[2024-01-22 22:30] VITALS: BP 115/71; PULSE 85; RESP 18; TEMP 97.5
[2024-01-23 10:32] VITALS: BP 118/84; PULSE 80; RESP 19; TEMP 97.7
[2024-01-23 23:13] VITALS: BP 101/69; PULSE 88; RESP 18; TEMP 98
[2024-01-24 08:00] VITALS: BP 121/80; PULSE 98; RESP 18; TEMP 98.7
[2024-01-24 09:27] LABS: BASOPHILS % (AUTO) 1.1 % (0.0-2.0); EOSINOPHILS % (AUTO) 3.3 % (1.0-6.0); HEMATOCRIT 42.4 % (36-46); LYMPHOCYTES # (AUTO) 2.7 K/uL (1.0-4.8); LYMPHOCYTES % (AUTO) 40.6 % (22.0-44.0); MEAN CORPUSCULAR HEMOGLOBIN 30.7 pg (26.0-34.0); MEAN CORPUSCULAR VOLUME 93 fL (80-100); MONOCYTES # (AUTO) 0.8 K/uL (0.1-1.0); MONOCYTES % (AUTO) 11.6 % (2.0-9.0); NEUTROPHILS # (AUTO) 2.9 K/uL (1.8-7.7); NEUTROPHILS % (AUTO) 43.4 % (40.0-70.0); PLATELET COUNT (AUTO) 224 K/uL (150-450); RED BLOOD CELL COUNT(AUTO) 4.56 MIL/uL (4.00-5.20); RED CELL DISTRIBUTION WIDTH 14.1 % (11.5-14.5); WHITE BLOOD COUNT (AUTO) 6.8 K/uL (4.5-11.0)
[2024-01-24 21:33] VITALS: BP 128/87; RESP 19; TEMP 97.9
[2024-01-25 05:08] LABS: CLOZAPINE & NORCLOZAPINE 393 ng/mL; NORCLOZAPINE 110 ng/mL (Not Estab.)
[2024-01-25 09:10] VITALS: BP 101/67; PULSE 97; RESP 18; TEMP 97.1
[2024-01-25 22:16] VITALS: BP 132/84; PULSE 76; RESP 18; TEMP 98.1
[2024-01-26 09:16] VITALS: BP 103/72; PULSE 88; RESP 18; TEMP 97.8
[2024-01-26 23:14] VITALS: BP 108/67; PULSE 104; RESP 18; TEMP 97.7
[2024-01-27] MEDS: CloZAPine 100 MG TABLET PO SCH (21:09)
[2024-01-27 23:03] VITALS: BP 123/70; PULSE 94; RESP 18; TEMP 97.8
[2024-01-28 06:38] LABS: COVID AG,FIA SOURCE NASAL SWAB
[2024-01-28 07:49] LABS: SARS-COV2 (COVID) ANTIGEN,FIA Negative (Negative)
[2024-01-28] MEDS ORDERED: DIVA500T69 PO (13:51)
[2024-01-28] MEDS ORDERED: DIVA-85 PO (13:51)
[2024-01-28] MEDS ORDERED: SERT-440 PO (13:51)
[2024-01-28] MEDS ORDERED: AMAN-24 PO (13:51)
[2024-01-28 15:16] VITALS: BP 114/78; PULSE 107; RESP 18; TEMP 97.9
[2024-01-28 21:30] VITALS: BP 100/59; PULSE 77; RESP 18; TEMP 97.4
[2024-01-28 21:35] VITALS: BP 100/59; PULSE 77; RESP 18; TEMP 97.4
[2024-01-29 08:10] VITALS: BP 101/64; PULSE 87; RESP 18; TEMP 97.5
[2024-01-29 21:17] VITALS: BP 102/67; PULSE 67; RESP 18; TEMP 97.2
[2024-01-30 08:48] VITALS: BP 115/78; PULSE 98; RESP 18; TEMP 97.1
[2024-01-30 22:17] VITALS: RESP 18
[2024-01-31 06:53] LABS: COVID AG,FIA SOURCE NASAL SWAB
[2024-01-31 07:47] LABS: BASOPHILS % (AUTO) 0.9 % (0.0-2.0); EOSINOPHILS % (AUTO) 2.2 % (1.0-6.0); HEMOGLOBIN 13.9 g/dL (12.0-16.0); LYMPHOCYTES # (AUTO) 2.8 K/uL (1.0-4.8); LYMPHOCYTES % (AUTO) 39.6 % (22.0-44.0); MEAN CORPUSCULAR HEMOGLOBIN 30.8 pg (26.0-34.0); MEAN CORPUSCULAR HGB CONC 33.2 G/dL (31.0-37.0); MEAN CORPUSCULAR VOLUME 93 fL (80-100); MONOCYTES # (AUTO) 0.7 K/uL (0.1-1.0); NEUTROPHILS # (AUTO) 3.3 K/uL (1.8-7.7); NEUTROPHILS % (AUTO) 47.3 % (40.0-70.0); PLATELET COUNT (AUTO) 210 K/uL (150-450); RED BLOOD CELL COUNT(AUTO) 4.52 MIL/uL (4.00-5.20); RED CELL DISTRIBUTION WIDTH 13.8 % (11.5-14.5)
[2024-01-31 08:08] LABS: SARS-COV2 (COVID) ANTIGEN,FIA Negative (Negative)
[2024-01-31 12:00] VITALS: BP 111/58; PULSE 86; RESP 18; TEMP 97.8
== END 2024-01-31 16:42 | DRG 750 ==
LOC: EMS 04:57 → 3EI 11:52
PROVIDERS: ADMIT Psychiatry & Neurology Psychiatry; ATTEND Psychiatry & Neurology Psychiatry
PROC: GZHZZZZ Group Psychotherapy (ICD-10-PCS; principal; 2024-01-03)
PROC: GZ58ZZZ Individual Psychotherapy, Cognitive-Behavioral (ICD-10-PCS; 2024-01-03)
DX: F25.0 Schizoaffective disorder, bipolar type (principal); R45.851 Suicidal ideations; Z91.148 Patient's other noncompliance with medication regimen for other reason; Z20.822 Contact with and (suspected) exposure to COVID-19; D64.9 Anemia, unspecified; E03.9 Hypothyroidism, unspecified; K59.00 Constipation, unspecified
CPT/HCPCS: 71046; 80053; 80061; 80074; 80159; 80164; 80307; 83036; 84703; 85025; 99285; G0480; J1200; J1630; J2060; Q9967; 36415-L1; 36415-TC

== ENCOUNTER 2024-08-09 23:29 | Inpatient (IN) | payer MEDICAID, OTHER ==
[~2024-08-09] VITALS: Ht 167.6 cm; Wt 82.1 kg
[~2024-08-09 23:29] MED LIST changes: +AMAN-24 PO; -BENZ1TAB84 PO; +DIVA-85 PO; +DIVA500T69 PO; -HALO5TAB23 PO; -NALT50TA33 PO; -NALT50TA6 PO; -NITR-75 PO
[2024-08-10 01:10] LABS: BASOPHILS % (AUTO) 0.9 % (0.0-2.0); EOSINOPHILS % (AUTO) 2.7 % (1.0-6.0); HEMATOCRIT 35.7 % (36-46); HEMOGLOBIN 12.1 g/dL (12.0-16.0); LYMPHOCYTES # (AUTO) 6.1 K/uL (1.0-4.8); LYMPHOCYTES % (AUTO) 57.8 % (22.0-44.0); MEAN CORPUSCULAR HEMOGLOBIN 32.3 pg (26.0-34.0); MEAN CORPUSCULAR HGB CONC 33.8 G/dL (31.0-37.0); MEAN CORPUSCULAR VOLUME 95 fL (80-100); MONOCYTES # (AUTO) 0.9 K/uL (0.1-1.0); MONOCYTES % (AUTO) 8.4 % (2.0-9.0); NEUTROPHILS # (AUTO) 3.2 K/uL (1.8-7.7); NEUTROPHILS % (AUTO) 30.2 % (40.0-70.0); PLATELET COUNT (AUTO) 167 K/uL (150-450); RED BLOOD CELL COUNT(AUTO) 3.74 MIL/uL (4.00-5.20); WHITE BLOOD COUNT (AUTO) 10.5 K/uL (4.5-11.0)
[2024-08-10 01:19] LABS: ANION GAP 7 mmol/L (8-16); CARBON DIOXIDE 27 mmol/L (22-29); CHLORIDE 104 mmol/L (98-107); CREATININE 0.74 mg/dL (0.60-1.30); GLOMERULAR FILTR. RATE CALC > 60 mL/min (>60); GLUCOSE,RANDOM 90 mg/dL (70-110); POTASSIUM 3.7 mmol/L (3.5-5.1); SODIUM SERUM 138 mmol/L (136-145); UREA NITROGEN, BLOOD 9 mg/dL (7-18)
[2024-08-10 02:19] LABS: COVID AG,FIA SOURCE NASAL SWAB
[2024-08-10 03:01] LABS: SARS-COV2 (COVID) ANTIGEN,FIA Negative (Negative)
[2024-08-10 03:59] LABS: ACETAMINOPHEN < 2 mcg/mL (10-30); SALICYLATE 2.3 mg/dL (2.8-20.0)
[2024-08-10 05:21] VITALS: O2SAT 98
[2024-08-10 05:24] LABS: APPEARANCE,URINE CLEAR (CLEAR); BILIRUBIN,URINE NEGATIVE (NEGATIVE); COLOR,URINE COLORLESS (YELLOW); GLUCOSE, URINE (UA) NEGATIVE (NEGATIVE); KETONES,URINE NEGATIVE (NEGATIVE); LEUKOCYTE ESTERASE ,URINE NEGATIVE (NEGATIVE); NITRATE,URINE NEGATIVE (NEGATIVE); OCCULT BLOOD,URINE NEGATIVE (NEGATIVE); PROTEIN,URINE NEGATIVE (NEGATIVE); SPECIFIC GRAVITIY, URINE 1.009 (1.003-1.030); UROBILINOGEN,URINE <=1.0 mg/dL (<=1.0)
[2024-08-10 05:30] LABS: AMPHET/METH SCREEN,URINE NEGATIVE (NEGATIVE); BARBITURATE SCREEN, URINE NEGATIVE (NEGATIVE); BENZODIAZEPINES SCREEN,URINE NEGATIVE (NEGATIVE); CANNABINOID SCREEN,URINE NEGATIVE (NEGATIVE); COCAINE SCREEN,URINE NEGATIVE (NEGATIVE); METHADONE SCREEN, URINE NEGATIVE (NEGATIVE); OPIATE SCREEN,URINE NEGATIVE (NEGATIVE); PHENCYCLIDINE SCREEN,URINE NEGATIVE (NEGATIVE)
[2024-08-10 05:49] LABS: ALCOHOL, URINE DRUG SCREEN NEGATIVE (NEGATIVE)
[2024-08-10 06:44] VITALS: BP 119/78; PULSE 98; RESP 18; TEMP 97.6; O2SAT 99
[2024-08-10] MEDS ORDERED: PNEUMOCOCCAL VACCINE POLYVALENT 0.5 ML SYRINGE [PPSV23] IM. ONE (07:00)
[2024-08-10] MEDS ORDERED: INFLUENZA VIRUS VACCINE TVS (6MO+) 2024-25/PF 45 MCG/0.5 ML SYRINGE IM. ONE (07:00)
[2024-08-10 08:28] VITALS: BP 105/66; PULSE 94; RESP 16; TEMP 96.8; O2SAT 97
[2024-08-10] MEDS: ACETAMINOPHEN 325 MG TABLET PO PRN (15:52)
[2024-08-10 20:13] VITALS: BP 141/83; PULSE 82; RESP 17; TEMP 97.3; O2SAT 95
[2024-08-10] MEDS: ZOLPIDEM TARTRATE 10 MG TABLET PO PRN (20:17)
[2024-08-11] MEDS: LORazepam 2 MG TABLET PO PRN (03:11)
[2024-08-11] MEDS: HALOPERIDOL 5 MG TABLET PO PRN (06:10)
[2024-08-11 08:46] VITALS: BP 100/66; PULSE 110; RESP 17; TEMP 96.9; O2SAT 98
[2024-08-11 10:30] VITALS: RESP 19; O2SAT 99
[2024-08-11] MEDS: MAGNESIUM HYDROXIDE SUSPENSION 30 ML UDCUP PO PRN (10:30)
[2024-08-11 22:45] VITALS: BP 96/58; PULSE 79; RESP 18; TEMP 96.7; O2SAT 100
[2024-08-12 10:46] VITALS: BP 117/58; PULSE 110; RESP 16; TEMP 96.6; O2SAT 97
[2024-08-12 11:45] VITALS: RESP 16
[2024-08-12] MEDS: IBUPROFEN 600 MG TABLET PO PRN (11:45)
[2024-08-12 12:45] VITALS: RESP 17
[2024-08-12 18:28] VITALS: PULSE 100
[2024-08-12 20:24] VITALS: BP 131/78; PULSE 91; RESP 18; TEMP 97.3; O2SAT 97
[2024-08-13 08:46] VITALS: BP 109/80; PULSE 101; RESP 18; TEMP 97.5; O2SAT 96
[2024-08-13] MEDS: LevETIRAcetam 500 MG TABLET PO SCH (16:48)
[2024-08-13] MEDS: DIVALPROEX SODIUM 250 MG ER TABLET PO SCH (20:38)
[2024-08-13] MEDS: CloZAPine 100 MG TABLET PO SCH (20:38)
[2024-08-13] MEDS: MELATONIN 5 MG TABLET PO SCH (20:40)
[2024-08-13] MEDS: TraZODone HCL 100 MG TABLET PO SCH (20:41)
[2024-08-13 21:25] VITALS: BP 112/74; PULSE 83; RESP 18; TEMP 97.5; O2SAT 97
[2024-08-14 09:01] VITALS: BP 100/61; PULSE 90; RESP 17; TEMP 97.8; O2SAT 100
[2024-08-14] MEDS: OLANZapine 5 MG RAPDIS TABLET PO SCH (10:29)
[2024-08-14] MEDS: BusPIRone HCL 10 MG TABLET PO SCH (10:30)
[2024-08-14] MEDS: SERTRALINE HCL 100 MG TABLET PO SCH (10:30)
[2024-08-14] MEDS: ChlorproMAZINE HCL 50 MG TABLET PO SCH (10:30)
[2024-08-14 11:29] VITALS: RESP 18; O2SAT 100
[2024-08-14 12:29] VITALS: RESP 17
[2024-08-14 20:47] VITALS: BP 95/60; PULSE 94; RESP 16; TEMP 97.1; O2SAT 99
[2024-08-14 22:30] VITALS: BP 110/58; PULSE 91; RESP 18; TEMP 97; O2SAT 98
[2024-08-15 08:57] VITALS: BP 91/65; PULSE 73; RESP 17; TEMP 97.6; O2SAT 97
[2024-08-15 20:43] VITALS: BP 90/60; PULSE 74; RESP 18; TEMP 97.3; O2SAT 98
[2024-08-16 09:02] VITALS: BP 114/64; PULSE 78; RESP 16; TEMP 97.9; O2SAT 100
[2024-08-16 14:42] VITALS: RESP 17; O2SAT 100
[2024-08-16 15:42] VITALS: RESP 17; O2SAT 100
[2024-08-16 21:26] VITALS: BP 99/60; PULSE 76; RESP 18; TEMP 97.9; O2SAT 98
[2024-08-17 08:30] VITALS: BP 100/64; PULSE 78; RESP 17; TEMP 97.2; O2SAT 100
[2024-08-17 11:35] VITALS: RESP 17
[2024-08-17 12:35] VITALS: RESP 17
[2024-08-17] MEDS ORDERED: MAG HYDROX/ALUMINUM HYD/SIMETH 30 ML SUSPENSION UDCUP PO PRN (15:15)
[2024-08-17 20:06] VITALS: BP 108/73; PULSE 74; RESP 17; TEMP 97.5
[2024-08-18 09:12] VITALS: BP 101/60; PULSE 77; RESP 18; TEMP 97.8; O2SAT 98
[2024-08-18 21:19] VITALS: BP 96/53; PULSE 59; RESP 17; TEMP 98.1; O2SAT 96
[2024-08-19 09:10] VITALS: BP 101/69; PULSE 93; RESP 18; TEMP 96.8; O2SAT 95
[2024-08-19 20:33] VITALS: BP 110/60; RESP 16; TEMP 97.7; O2SAT 100
[2024-08-19 21:33] VITALS: RESP 17; O2SAT 99
[2024-08-20 08:15] VITALS: BP 97/68; PULSE 18; RESP 18; TEMP 97.3; O2SAT 96
[2024-08-20 08:35] LABS: HEMATOCRIT 36.6 % (36-46); HEMOGLOBIN 12.3 g/dL (12.0-16.0); MEAN CORPUSCULAR HEMOGLOBIN 32.1 pg (26.0-34.0); MEAN CORPUSCULAR HGB CONC 33.6 G/dL (31.0-37.0); MEAN CORPUSCULAR VOLUME 96 fL (80-100); PLATELET COUNT (AUTO) 214 K/uL (150-450); RED BLOOD CELL COUNT(AUTO) 3.83 MIL/uL (4.00-5.20); RED CELL DISTRIBUTION WIDTH 12.9 % (11.5-14.5); WHITE BLOOD COUNT (AUTO) 7.3 K/uL (4.5-11.0)
[2024-08-20 09:01] LABS: BAND NEUTROPHILS % (MANUAL) 0 % (0-5)
[2024-08-20 09:08] LABS: EOSINOPHILS % (MANUAL) 1 % (1-6); LYMPHOCYTES % (MANUAL) 53 % (22-44); MONOCYTES % (MANUAL) 7 % (2-9); REACTIVE LYMPHOCYTES 5 % (0-0); SEGMENTED NEUTROPHILS % 34 % (40-70); TOTAL CELLS COUNTED 100
[2024-08-20 10:10] VITALS: RESP 18; O2SAT 97
[2024-08-20 11:10] VITALS: RESP 17; O2SAT 97
[2024-08-20] MEDS: PALIPERIDONE PALMITATE 117 MG/0.75 ML SYRINGE IM SCH (11:30)
[2024-08-20 17:55] VITALS: BP 114/66; RESP 17; O2SAT 96
[2024-08-20 21:32] VITALS: BP 97/71; PULSE 99; RESP 18; TEMP 98.4; O2SAT 97
[2024-08-21 08:48] VITALS: BP_SYST 101; BP_SYST 151; BP_DIAS 67; BP_DIAS 98; PULSE 91; RESP 16; TEMP 96.4; O2SAT 99
[2024-08-21 21:47] VITALS: BP 109/66; PULSE 63; RESP 18; TEMP 97.3; O2SAT 100
[2024-08-21] MEDS ORDERED: LOPERAMIDE HCL 2 MG CAPSULE PO PRN (22:45)
[2024-08-22 08:46] VITALS: BP 117/74; PULSE 99; RESP 17; TEMP 97.1; O2SAT 98
[2024-08-22 09:22] LABS: C.DIFF GDH ANTIGEN, Stool Negative (Negative); C.DIFF TOXINS A&B, Stool Negative (Negative)
[2024-08-25 09:07] LABS: CLOZAPINE & NORCLOZAPINE 84 ng/mL; NORCLOZAPINE 26 ng/mL (Not Estab.)
== END 2024-08-22 11:10 | DRG 750 ==
LOC: EMS 23:29 → B3A 08-10 03:54 → B2S 08-10 23:57
PROVIDERS: ADMIT Psychiatry & Neurology Psychiatry; ATTEND Psychiatry & Neurology Psychiatry
PROC: GZHZZZZ Group Psychotherapy (ICD-10-PCS; principal; 2024-08-22)
PROC: GZ51ZZZ Individual Psychotherapy, Behavioral (ICD-10-PCS; 2024-08-22)
DX: F25.0 Schizoaffective disorder, bipolar type (principal); R45.851 Suicidal ideations; F41.9 Anxiety disorder, unspecified; K21.9 Gastro-esophageal reflux disease without esophagitis; F94.0 Selective mutism; Z20.822 Contact with and (suspected) exposure to COVID-19
CPT/HCPCS: 80048; 80159; 80164; 80307; 81003; 84703; 85025; 87324; 87449; 90686; 99285; G0480; G0481